=== PATIENT | female | born 1965 | race Hispanic/Latino ===

== ENCOUNTER 2017-09-14 19:30 | Inpatient (IN) | payer SELFPAY ==
[2017-09-14 21:21] LABS: #Eosinphils 0.1 thou/uL (0.0-0.7); #Lymphocytes 1.1 thou/uL (1.20-3.40); #Neutrophils 7.3 thou/uL (1.40-6.50); %Basophils 0.5 % (0.0-1.0); %Eosinophils 0.9 % (0.0-10.0); %Lymphocytes 11.9 % (21.0-51.0); %Monocytes 10.3 % (0.0-10.0); Hematocrit 27.7 % (36.0-47.0); Mean Platelet Volume 9.9 fL (7.4-10.4); Red Blood Cell (RBC) Count 3.15 mill/uL (4.20-5.40); White Blood Cell (WBC) Count 9.6 thou/uL (4.8-10.8)
[2017-09-14 21:38] LABS: ALT (SGPT) 21 U/L (8-55); AST (SGOT) 64 U/L (5-34); Alkaline Phosphatase 131 U/L (40-150); Anion Gap 12 mmol/L (10-20); BUN (Urea Nitrogen) 19 mg/dL (9.8-20.1); Bilirubin, Total 1.2 mg/dL (0.2-1.2); Calc. Creatinine Clearance 0 mL/min (70-130); Calcium 7.9 mg/dL (7.8-10.44); Carbon Dioxide 20 mmol/L (22-29); Chloride 104 mmol/L (98-107); Estimated GFR-MDRD 42; Protein, Total 7.2 g/dL (6.0-8.3)
[2017-09-14] MEDS ORDERED: Morphine 4 MG/ML Carpuject ONE (21:47)
[2017-09-14] MEDS ORDERED: MEROPENEM 1 GM/50 ML 1 GM in Premix Bag 1 BAG IVPB SCH (22:15)
--- NOTE | 2017-09-14 22:31 | CT ---
CT LEFT HEMIPELVIS/THIGH NONCONTRAST CT LEFT LEG NONCONTRAST CT LEFT FOOT NONCONTRAST: Clinical history: Diffuse pain. FINDINGS: There is edema throughout the left lower extremity and within the left hemipelvis. Edema is located within the subcutaneous tissues as well as along the superficial aspect of the fascia. There is an i nflamed lymph node of the anterior proximal left thigh which maintains a fatty hilum. Limited evalua tion by noncontrast technique for potential focal fluid collection. No obvious acute osseous destruc tive process. No soft tissue gas is present. IMPRESSION: 1. There is diffuse soft tissue edema including mild fascial edema. Limited evaluation for detection of drainable fluid collection by noncontrast technique. 2. Associated adenopathy. POS: DANAE
[2017-09-14 23:59] LABS: Bilirubin Negative (Negative); Blood, Urine Large (Negative); Glucose, Urine (Dipstick) Negative (Negative); Ketone, Urine Negative (Negative); Nitrite Negative (Negative); Protein, Urine (Dipstick) Trace mg/dL (Neg-Trace)
[2017-09-15 00:02] LABS: Bacteria/HPF None Seen HPF (None Seen); Hyaline Casts/LPF 0-3 HYALINE CAST LPF (0-3 Hyaline); RBC/HPF GREATER THAN 50-TNTC HPF (0-3)
[2017-09-15] MEDS ORDERED: Ondansetron HCl/PF 4 MG/2 ML Vial IVP PRN ×2 (01:47→11:21)
[2017-09-15] MEDS ORDERED: Ondansetron ODT 4 MG TAB SL PRN (01:47)
[2017-09-15] MEDS ORDERED: Sodium Chloride 0.9% 1,000 ML IV SCH ×2 (01:47→11:30)
[2017-09-15] MEDS ORDERED: MORPHINE 10 MG/ML SYRINGE IV PRN (01:49)
[2017-09-15 02:51] VITALS: BMI 38.0
[2017-09-15] MEDS ORDERED: MEROPENEM 1 GM/50 ML 1 GM in Premix Bag 1 BAG IVPB SCH (06:00)
[2017-09-15] MEDS: Potassium Chloride 20 MEQ TAB PO SCH ×2 (08:53→17:26)
[2017-09-15] MEDS ORDERED: Vancomycin HCl 1 GM in Premix Bag 1 BAG IVPB SCH ×2 (09:00→11:30)
[2017-09-15] MEDS ORDERED: Magnesium Sulfate 2 GM in Sodium Chloride 0.9% 100 ML IVPB SCH (10:00)
[2017-09-15] MEDS ORDERED: cefTRIAXone\\ROCEPHIN 1 GM in Sodium Chloride 0.9% 100 ML IVPB SCH (10:30)
[2017-09-15] MEDS ORDERED: Mag-Al 1200 mg/1200 mg/30 ML UDCUP PO PRN (11:21)
[2017-09-15] MEDS ORDERED: Calcium Carbonate 500 MG ChewTAB PO PRN (11:21)
[2017-09-15] MEDS ORDERED: Ondansetron ODT 4 MG TAB PO PRN (11:21)
[2017-09-15] MEDS ORDERED: hydrALAZINE 20 MG/ML VIAL SLOW IVP PRN (11:21)
[2017-09-15] MEDS ORDERED: Acetaminophen 325 MG TAB PO PRN (11:21)
[2017-09-15] MEDS ORDERED: Insulin Regular 300 UNITS/3 ML VIAL SC PRN ×2 (11:21)
[2017-09-15] MEDS ORDERED: Bisacodyl 10 MG SUPP PR PRN (11:21)
[2017-09-15] MEDS ORDERED: Dextrose 5% in Water 1,000 ML IV PRN (11:21)
[2017-09-15] MEDS ORDERED: Senokot 8.6 MG TAB PO PRN (11:21)
[2017-09-15] MEDS ORDERED: Dextrose 50% Abboject 50 ML SYRINGE SLOW IVP PRN (11:21)
[2017-09-15] MEDS: cefTRIAXone\\ROCEPHIN 1 GM, Syringe 0.4 ML in Sterile Water 9.6 ML SLOW IVP SCH (12:01)
--- NOTE | 2017-09-15 13:05 | ULT ---
ULTRASOUND WITH DOPPLER DUPLEX VENOUS LOWER EXTREMITY LEFT: HISTORY: 52-year-old female with left lower extremity pain and swelling. TECHNIQUE: Color flow Doppler, spectral waveform analysis of pulsed Doppler, and jones-scale imaging with compre ssion and augmentation, were used to evaluate the left common femoral, femoral, popliteal, posterior tibial, and superficial femoral, veins; and the proximal portions of the profunda femoral and great er saphenous, veins. FINDINGS: There is normal compressibility, demonstration of blood flow by color Doppler and pulsed Doppler, an d response to augmentation, in all interrogated veins. IMPRESSION: Negative. No deep vein thrombosis in the left lower extremity. angel POS: DANAE
--- NOTE | 2017-09-15 18:39 | HP ---
DATE OF ADMISSION: 09/15/2017 PRIMARY CARE PHYSICIAN: The patient follows Dr. Muhammad. Last seen in March of this year. CHIEF COMPLAINT: Left leg swelling with pain. HISTORY OF PRESENT ILLNESS: The patient is a 52-year-old female who was discharged from this [place] [facility] on 07/15/2017 (two months ago) with severe left lower extremity cellulitis. She was discharged h ome on Keflex 500 mg 4 times daily for 10 days followed by pen VK 250 mg twice a day for one year. She ran out of the prescription after a month. She did not follow up with the primary care for refi lls. Her leg swelling has significantly improved. Over the last 3-4 days, the patient developed gradual worsening swelling of left lower extremity. S he also had warmth, tenderness along with redness. She felt feverish; however, did not record her t emperature. The pain was 10/10, worse on movement. She denies recent immobilization, travel or tra yamile. For this reason, she presented to the emergency room. In the emergency room, initial vital signs showed temperature 98.8, respirations 19, pulse of 79, bl ood pressure of 127/69 with O2 saturation 98% on room air. White blood cell count was 9.6 with 76.4 % neutrophils. CRP was 10.9. Blood cultures were drawn. She was started on vancomycin and meropen em. PAST MEDICAL HISTORY: 1. Diabetes mellitus type 2. 2. Obesity with a BMI at 38. 3. Left lower extremity cellulitis 2 months ago. 4. Hypertension. PAST SURGICAL HISTORY: x3. ALLERGIES: The patient is allergic to ASPIRIN. CURRENT HOME MEDICATIONS: The patient currently takes no prescription medications. SOCIAL HISTORY: The patient is and lives at home with her family. No smoking, alcohol or d rug use. The patient currently works at [employer]. FAMILY HISTORY: Positive for diabetes in her parents. Mother with cervical and liver cancer. [facility] er with lung cancer. REVIEW OF SYSTEMS: The following complete review of systems was negative, unless otherwise mentione d in the HPI or below: Constitutional: Weight loss or gain, ability to conduct usual activities. Skin: Rash, itching. Eyes: Double vision, pain. ENT/Mouth: Nose bleeding, neck stiffness, pain, tenderness. Cardiovascular: Palpitations, dyspnea on exertion, orthopnea. Respiratory: Shortness of breath, wheezing, cough, hemoptysis, fever or night sweats. Gastrointestinal: Poor appetite, abdominal pain, heartburn, nausea, vomiting, constipation, or diar wagner. Genitourinary: Urgency, frequency, dysuria, nocturia. Musculoskeletal: Pain, swelling. Neurologic/Psychiatric: Anxiety, depression. Allergy/Immunologic: Skin rash, bleeding tendency. PHYSICAL EXAMINATION: VITAL SIGNS: As discussed above. GENERAL: A 52-year-old male in mild distress due to left leg pain and swelling. HEENT: Atraumatic and normocephalic, sclerae are anicteric. Moist mucous membrane, no oral lesion. NECK: Supple, no JVD appreciated. No carotid bruit. LUNGS: Clear to auscultation bilaterally. No wheezing or rales. HEART: S1, S2 present. Regular rate and rhythm. No rubs, gallops or murmur appreciated. ABDOMEN: Soft and nontender, bowel sounds present. EXTREMITIES: There is significant warmth, swelling and tenderness of the left lower extremity. The left lower extremity was also swollen with some tenderness on palpation. SKIN: As discussed above. LYMPH NODES: No palpable lymph nodes in the neck. PERIPHERAL VASCULAR: Radial pulses palpable bilaterally. MUSCULOSKELETAL: No joint swelling or tenderness. NEUROLOGIC: Grossly nonfocal, moves all four extremities. PSYCHIATRY: Alert, awake, and oriented x3. LABORATORY FINDINGS: As discussed above. Magnesium was 1.3, potassium 3.1 with sodium 133, creatin ine was 1.33. Her creatinine normally runs in that range. CRP was 10.95, albumin 2.2. CBC showed WBC 9.6 with hemoglobin 9.0. Blood cultures were sent and negative. Left lower extremity ultrasoun d was negative for DVT. Lower extremity CT noncontrast done in the emergency room by my review show ed diffuse soft tissue edema without any drainable fluid collection. IMPRESSION: 1. Extensive left lower extremity cellulitis. 2. Diabetes mellitus type 2, diet controlled. Hemoglobin A1c earlier this year was 5.8 at [facility]. 3. Hypertension. 4. Obesity with a body mass index 38. 5. Electrolyte imbalances including hypokalemia, hypomagnesemia and hyponatremia. 6. Chronic kidney disease stage 3. 7. Elevated inflammatory markers. 8. Hypoalbuminemia of unclear etiology, questionable mild protein-calorie malnutrition. 9. Abnormal liver function tests, probably secondary to passive hepatic congestion. 10. Metabolic acidosis, probably secondary to renal failure. Lactic acid was normal. 11. Chronic anemia. Plan of care was discussed with the patient and she stated understanding. PLAN: The patient will be monitored on the medical floor. We will continue vancomycin. We will ad d ceftriaxone. Repeat labs in a.m. Gentle intravenous hydration. Replace magnesium and potassium. Consult walking program. P.r.n. medications. Plan of care was discussed with the patient and she stated understanding.
[2017-09-15] MEDS: Docusate 100 MG CAP PO SCH (20:12)
[2017-09-15] MEDS: Vancomycin HCl 1.5 GM in Sodium Chloride 0.9% 250 ML 300 ML IVPB SCH (22:18)
[2017-09-16] MEDS: HYDROcodone/Acetaminophen 5/325 mg Tablet PO PRN ×3 (01:54→19:44)
[2017-09-16 05:41] LABS: ALT (SGPT) 18 U/L (8-55); AST (SGOT) 55 U/L (5-34); Alkaline Phosphatase 71 U/L (40-150); Anion Gap 9 mmol/L (10-20); BUN (Urea Nitrogen) 10 mg/dL (9.8-20.1); Bilirubin, Total 1.2 mg/dL (0.2-1.2); Calc. Creatinine Clearance 123 mL/min (70-130); Calcium 7.7 mg/dL (7.8-10.44); Carbon Dioxide 23 mmol/L (22-29); Chloride 107 mmol/L (98-107); Estimated GFR-MDRD 70; Globulin 4.9 g/dL (2.4-3.5); Magnesium 1.5 mg/dL (1.6-2.6); Phosphorus 2.9 mg/dL (2.3-4.7); Protein, Total 6.9 g/dL (6.0-8.3)
[2017-09-16 06:49] LABS: Band 7 % (5-11); Hematocrit 27.3 % (36.0-47.0); Mean Platelet Volume 9.3 fL (7.4-10.4); Metamyelocyte 1 % (0-0); Myelocyte 2 % (0-0); Neutrophil 56 % (42-75); Reactive Lymphocytes 1 % (0-10); Red Blood Cell (RBC) Count 3.06 mill/uL (4.20-5.40); White Blood Cell (WBC) Count 6.9 thou/uL (4.8-10.8)
[2017-09-16] MEDS ORDERED: Magnesium 2 GM/NS 0.9% 100 ML 2 GM in Premix Bag 1 BAG IVPB SCH (07:30)
[2017-09-16] MEDS ORDERED: Magnesium Sulfate 2 GM in Sodium Chloride 0.9% 100 ML IVPB SCH (07:30)
[2017-09-16] MEDS: Potassium Chloride 20 MEQ TAB PO SCH (08:48)
[2017-09-16] MEDS: Docusate 100 MG CAP PO SCH ×2 (08:48→19:44)
[2017-09-16] MEDS: cefTRIAXone\\ROCEPHIN 1 GM, Syringe 0.4 ML in Sterile Water 9.6 ML SLOW IVP SCH (10:54)
--- NOTE | 2017-09-16 17:10 | PDOC.PN ---
- Subjective Encounter Start Date: 09/16/17 Encounter Start Time: 11:00 Patient seen and examined. No new complaints. No overnight events. LLE pain and swelling improving. - Objective Resuscitation Status: Resuscitation Status FULL:Full Resuscitation MAR Reviewed: Yes Vital Signs & Weight: Vital Signs (12 hours) Temp Pulse Resp BP Pulse Ox 09/16/17 16:00 98.7 F 82 18 123/71 98 09/16/17 08:00 98.1 F 76 18 115/71 96 Weight Weight 221 lb 9.6 oz I&O: 09/15/17 09/16/17 09/17/17 06:59 06:59 06:59 Intake Total 2400 Balance 2400 Result Diagrams: 09/16/17 05:10 09/16/17 05:10 Additional Labs: Accuchecks 09/16/17 09/16/17 09/16/17 16:11 11:42 04:53 POC Glucose 138 H 119 H 108 09/15/17 09/15/17 20:12 17:03 POC Glucose 128 H 103 Radiology Reviewed by me: No (Doppler - No DVT) Phys Exam - Physical Examination Constitutional: NAD HEENT: moist MMs, sclera anicteric, oral pharynx no lesions, 2+ tonsils Respiratory: no wheezing, no rales, no rhonchi, clear to auscultation bilateral Cardiovascular: RRR, no significant murmur, no rub No heaves/pulsations Gastrointestinal: soft, non-tender, no distention, positive bowel sounds Musculoskeletal: pulses present, edema present (LLE with improving erythema. Still warm) Neurological: non-focal, normal sensation, moves all 4 limbs Psychiatric: normal affect, A&O x 3 Dx/Plan - Plan IMPRESSION: 1. Extensive left lower extremity cellulitis. slowly improving on Atbx 2. Diabetes mellitus type 2. 3. Hypertension. 4. Obesity with a body mass index 38. 5. Electrolyte imbalances including hypokalemia, hypomagnesemia and hyponatremia. 6. Chronic kidney disease stage 3. 7. Elevated inflammatory markers. 8. Hypoalbuminemia of unclear etiology, questionable mild protein-calorie malnutrition. 9. Abnormal liver function tests. 10. Metabolic acidosis, probably secondary to renal failure. Lactic acid was normal. 11. Chronic anemia. PLAN: * Replace Magnessium - 1.5 today * Cont Vancomycin/Ceftriaxone * Cont other meds as below Review of Systems - Review of Systems Respiratory: negative: Cough, Dry, Shortness of Breath, Hemoptysis, SOB with Excertion, Pleuritic Pain, Sputum, Wheezing Cardiovascular: negative: Chest Pain, Palpitations, Orthopnea, Paroxysmal Noc. Dyspnea, Edema, Light Headedness, Other Gastrointestinal: negative: Nausea, Vomiting, Abdominal Pain, Diarrhea, Constipation, Melena, Hematochezia, Other - Medications/Allergies Allergies/Adverse Reactions: Allergies Allergy/AdvReac Type Severity Reaction Status Date / Time aspirin Allergy Unknown Nausea Verified 09/15/17 02:34 Medications: Current Medications Acetaminophen (Tylenol) 650 mg PO Q4H PRN PRN Reason: Headache/Fever or Pain Hydrocodone Bitart/Acetaminophen ([place] 5/325) 1 tab PO Q6H PRN PRN Reason: Moderate Pain (4-6) Last Admin: 09/16/17 13:18 Dose: 1 tab Al Hydroxide/Mg Hydroxide (Maalox) 30 ml PO Q6H PRN PRN Reason: Heartburn or Indigestion Bisacodyl (Dulcolax) 10 mg [place] Q24H PRN PRN Reason: Constipation Calcium Carbonate (Tums) 1,000 mg PO Q4H PRN PRN Reason: Heartburn or Indigestion Dextrose/Water (Dextrose 50%) 25 gm SLOW IVP PRN PRN PRN Reason: Hypoglycemia Docusate Sodium (Colace) 100 mg PO BID [facility] Last Admin: 09/16/17 08:48 Dose: 100 mg Glucagon (Glucagon) 1 mg IM PRN PRN PRN Reason: Hypoglycemia Hydralazine HCl (Apresoline) 10 mg SLOW IVP Q4H PRN PRN Reason: SBP Greater Than 180 Ceftriaxone Sodium 1 gm/ (Syringe 0.4 ml/ Sterile Water) 10 mls @ 120 mls/hr SLOW IVP 1100 [facility] Last Admin: 09/16/17 10:54 Dose: 10 mls Dextrose/Water (D5w) 1,000 mls @ 0 mls/hr IV .Q0M PRN; As Directed PRN Reason: Hypoglycemia Vancomycin HCl 1.5 gm/ Sodium (Chloride) 300 mls @ 200 mls/hr IVPB 2200 [facility] Last Admin: 09/15/17 22:18 Dose: 300 mls Miscellaneous Medication (Pharmacy To Dose) 1 each IVPB PRN PRN PRN Reason: Pharmacy to dose Ondansetron HCl (Zofran Odt) 4 mg PO Q6H PRN PRN Reason: Nausea/Vomiting Ondansetron HCl (Zofran) 4 mg IVP Q6H PRN PRN Reason: Nausea/Vomiting Last Admin: 09/15/17 19:04 Dose: 4 mg Senna (Senokot) 2 tab PO HSPRN PRN PRN Reason: Constipation Sodium Chloride (Flush - Normal Saline) 10 ml IVF Q12HR [facility] Last Admin: 09/16/17 08:49 Dose: Not Given Sodium Chloride (Flush - Normal Saline) 10 ml IVF PRN PRN PRN Reason: Saline Flush
[2017-09-16 21:39] LABS: Vancomycin, Trough 7.5 ug/mL
[2017-09-16] MEDS: Vancomycin HCl 1.5 GM in Sodium Chloride 0.9% 250 ML 300 ML IVPB SCH (22:43)
[2017-09-17] MEDS: Vancomycin HCl 1.5 GM in Sodium Chloride 0.9% 250 ML 300 ML IVPB SCH ×2 (09:12→21:19)
[2017-09-17] MEDS: Docusate 100 MG CAP PO SCH ×2 (09:12→21:18)
--- NOTE | 2017-09-17 09:17 | PDOC.PN ---
- Subjective Encounter Start Date: 09/17/17 Encounter Start Time: 09:14 Patient seen and examined. No new complaints. No overnight events. LLE pain claudio at night. Ambulating in hallway. - Objective Resuscitation Status: Resuscitation Status FULL:Full Resuscitation Vital Signs & Weight: Vital Signs (12 hours) Temp Pulse Resp BP Pulse Ox 09/17/17 08:09 98.5 F 78 16 126/76 96 Weight Weight 221 lb 9.6 oz I&O: 09/16/17 09/17/17 09/18/17 06:59 06:59 06:59 Intake Total 2400 3236 Balance 2400 3236 Result Diagrams: 09/16/17 05:10 09/16/17 05:10 Additional Labs: Accuchecks 09/17/17 09/16/17 09/16/17 05:51 20:06 16:11 POC Glucose 130 H 184 H 138 H 09/16/17 11:42 POC Glucose 119 H Phys Exam - Physical Examination Constitutional: NAD Respiratory: no wheezing, no rhonchi Cardiovascular: RRR, no rub Gastrointestinal: soft, non-tender, positive bowel sounds Musculoskeletal: edema present (LLE still warm/swollen. Erythema improving.) Dx/Plan - Plan DVT proph w/SCDs IMPRESSION: 1. Extensive left lower extremity cellulitis - improving on Atbx 2. Diabetes mellitus type 2. diet controlled. No sliding scale needed. 3. Hypertension. stable 4. Obesity with a body mass index 38. 5. Electrolyte imbalances including hypokalemia, hypomagnesemia and hyponatremia. 6. Chronic kidney disease stage 3. 7. Elevated inflammatory markers - prob due to # 1 8. Hypoalbuminemia of unclear etiology, ?mild protein-calorie malnutrition. 9. Metabolic acidosis, probably secondary to renal failure. Lactic acid was normal. 10. Chronic anemia. PLAN: * Recheck labs in AM * Continue Vancomycin/Ceftriaxone * Cont other meds as below * DC planning in 24-48 hr if stable Review of Systems - Review of Systems Respiratory: negative: Cough, Dry, Shortness of Breath, Hemoptysis, SOB with Excertion, Pleuritic Pain, Sputum, Wheezing Cardiovascular: negative: Chest Pain, Palpitations, Orthopnea, Paroxysmal Noc. Dyspnea, Edema, Light Headedness, Other Gastrointestinal: negative: Nausea, Vomiting, Abdominal Pain, Diarrhea, Constipation, Melena, Hematochezia, Other - Medications/Allergies Allergies/Adverse Reactions: Allergies Allergy/AdvReac Type Severity Reaction Status Date / Time aspirin Allergy Unknown Nausea Verified 09/15/17 02:34 Medications: Current Medications Acetaminophen (Tylenol) 650 mg PO Q4H PRN PRN Reason: Headache/Fever or Pain Hydrocodone Bitart/Acetaminophen ([place] 5/325) 1 tab PO Q6H PRN PRN Reason: Moderate Pain (4-6) Last Admin: 09/16/17 19:44 Dose: 1 tab Al Hydroxide/Mg Hydroxide (Maalox) 30 ml PO Q6H PRN PRN Reason: Heartburn or Indigestion Bisacodyl (Dulcolax) 10 mg [place] Q24H PRN PRN Reason: Constipation Calcium Carbonate (Tums) 1,000 mg PO Q4H PRN PRN Reason: Heartburn or Indigestion Dextrose/Water (Dextrose 50%) 25 gm SLOW IVP PRN PRN PRN Reason: Hypoglycemia Docusate Sodium (Colace) 100 mg PO BID [facility] Last Admin: 09/16/17 19:44 Dose: 100 mg Glucagon (Glucagon) 1 mg IM PRN PRN PRN Reason: Hypoglycemia Hydralazine HCl (Apresoline) 10 mg SLOW IVP Q4H PRN PRN Reason: SBP Greater Than 180 Ceftriaxone Sodium 1 gm/ (Syringe 0.4 ml/ Sterile Water) 10 mls @ 120 mls/hr SLOW IVP 1100 [facility] Last Admin: 09/16/17 10:54 Dose: 10 mls Dextrose/Water (D5w) 1,000 mls @ 0 mls/hr IV .Q0M PRN; As Directed PRN Reason: Hypoglycemia Vancomycin HCl 1.5 gm/ Sodium (Chloride) 300 mls @ 200 mls/hr IVPB 1000,2200 [facility] Miscellaneous Medication (Pharmacy To Dose) 1 each IVPB PRN PRN PRN Reason: Pharmacy to dose Ondansetron HCl (Zofran Odt) 4 mg PO Q6H PRN PRN Reason: Nausea/Vomiting Ondansetron HCl (Zofran) 4 mg IVP Q6H PRN PRN Reason: Nausea/Vomiting Last Admin: 09/15/17 19:04 Dose: 4 mg Senna (Senokot) 2 tab PO HSPRN PRN PRN Reason: Constipation Sodium Chloride (Flush - Normal Saline) 10 ml IVF Q12HR [facility] Last Admin: 09/16/17 19:47 Dose: 10 ml Sodium Chloride (Flush - Normal Saline) 10 ml IVF PRN PRN PRN Reason: Saline Flush
[2017-09-17] MEDS: cefTRIAXone\\ROCEPHIN 1 GM, Syringe 0.4 ML in Sterile Water 9.6 ML SLOW IVP SCH (11:19)
[2017-09-17] MEDS: HYDROcodone/Acetaminophen 5/325 mg Tablet PO PRN (21:29)
[2017-09-18 05:44] LABS: Hematocrit 26.9 % (36.0-47.0); Mean Platelet Volume 8.9 fL (7.4-10.4); Red Blood Cell (RBC) Count 3.07 mill/uL (4.20-5.40); White Blood Cell (WBC) Count 5.1 thou/uL (4.8-10.8)
[2017-09-18 05:53] LABS: Anion Gap 11 mmol/L (10-20); BUN (Urea Nitrogen) 6 mg/dL (9.8-20.1); Calc. Creatinine Clearance 139 mL/min (70-130); Calcium 7.5 mg/dL (7.8-10.44); Carbon Dioxide 21 mmol/L (22-29); Chloride 105 mmol/L (98-107); Estimated GFR-MDRD 81; Magnesium 1.3 mg/dL (1.6-2.6)
[2017-09-18 06:08] LABS: Band 9 % (5-11); Neutrophil 50 % (42-75)
[2017-09-18] MEDS ORDERED: Magnesium Sulfate 4 GM, Admixture Fee 1 EACH in Sodium Chloride 0.9% 250 ML 250 ML IVPB SCH (07:15)
[2017-09-18] MEDS: Docusate 100 MG CAP PO SCH ×2 (08:47→22:19)
[2017-09-18] MEDS: Potassium Chloride 20 MEQ TAB PO SCH ×2 (08:47→17:27)
[2017-09-18] MEDS: cefTRIAXone\\ROCEPHIN 1 GM, Syringe 0.4 ML in Sterile Water 9.6 ML SLOW IVP SCH (11:09)
[2017-09-18] MEDS: Vancomycin HCl 1.5 GM in Sodium Chloride 0.9% 250 ML 300 ML IVPB SCH ×2 (11:09→22:18)
--- NOTE | 2017-09-18 11:57 | PDOC.PN ---
- Subjective Encounter Start Date: 09/18/17 Encounter Start Time: 10:00 Patient seen and examined. No new complaints. No overnight events - Objective Resuscitation Status: Resuscitation Status FULL:Full Resuscitation MAR Reviewed: Yes Vital Signs & Weight: Vital Signs (12 hours) Temp Pulse Resp BP Pulse Ox 09/18/17 08:16 98.4 F 75 16 134/77 97 09/18/17 08:00 98.4 F 75 16 97 09/18/17 05:09 97 09/18/17 04:00 98.2 F 75 18 120/74 96 09/18/17 00:00 98.2 F 83 18 127/75 97 Weight Weight 221 lb 9.6 oz I&O: 09/17/17 09/18/17 09/19/17 06:59 06:59 06:59 Intake Total 3236 300 Balance 3236 300 Result Diagrams: 09/18/17 05:04 09/18/17 05:04 Additional Labs: Accuchecks 09/18/17 09/17/17 09/17/17 05:44 21:01 18:01 POC Glucose 93 105 101 09/17/17 11:55 POC Glucose 121 H Phys Exam - Physical Examination Constitutional: NAD HEENT: PERRLA, moist MMs, sclera anicteric Neck: no JVD, supple Respiratory: no wheezing, no rales, no rhonchi Cardiovascular: RRR, no significant murmur, no rub Gastrointestinal: soft, non-tender, no distention, positive bowel sounds Musculoskeletal: no edema, pulses present cellulitis improving Neurological: non-focal, normal sensation, moves all 4 limbs Psychiatric: normal affect, A&O x 3 Skin: no rash, normal turgor Dx/Plan (1) Acute kidney failure Status: Acute (2) Cellulitis of left leg Code(s): L03.116 - CELLULITIS OF LEFT LOWER LIMB Status: Acute Comment: (3) Hypokalemia Code(s): E87.6 - HYPOKALEMIA Status: Acute (4) Hypomagnesemia Code(s): E83.42 - HYPOMAGNESEMIA Status: Acute (5) Sepsis with acute organ dysfunction Code(s): A41.9 - SEPSIS, UNSPECIFIED ORGANISM; R65.20 - SEVERE SEPSIS WITHOUT SEPTIC SHOCK Status: Acute (6) Thrombocytopenia Code(s): D69.6 - THROMBOCYTOPENIA, UNSPECIFIED Status: Acute (7) Anemia, normocytic normochromic Code(s): D64.9 - ANEMIA, UNSPECIFIED Status: Chronic (8) DM II (diabetes mellitus, type II), controlled Code(s): E11.9 - TYPE 2 DIABETES MELLITUS WITHOUT COMPLICATIONS Status: Chronic Comment: (9) HTN (hypertension) Code(s): I10 - ESSENTIAL (PRIMARY) HYPERTENSION Status: Chronic Qualifiers: Hypertension type: essential hypertension Qualified Code(s): I10 - Essential (primary) hypertension Comment: (10) Obesity (BMI 30-39.9) Code(s): E66.9 - OBESITY, UNSPECIFIED Status: Chronic - Plan cont current plan of care, continue antibiotics * continue IV antibiotics as ordered * medication reviewed as below * symptomatic treatment * pain controlled * pt is improving but not ready for discharge * will repeat labs tomorrow. Review of Systems - Review of Systems ENT: negative: Ear Pain, Ear Discharge, Nose Pain, Nose Discharge, Nose Congestion, Mouth Pain, Mouth Swelling, Throat Pain, Throat Swelling, Other Respiratory: negative: Cough, Dry, Shortness of Breath, Hemoptysis, SOB with Excertion, Pleuritic Pain, Sputum, Wheezing Cardiovascular: negative: Chest Pain, Palpitations, Orthopnea, Paroxysmal Noc. Dyspnea, Edema, Light Headedness, Other Gastrointestinal: negative: Nausea, Vomiting, Abdominal Pain, Diarrhea, Constipation, Melena, Hematochezia, Other Genitourinary: negative: Dysuria, Frequency, Incontinence, Hematuria, Retention , Other Musculoskeletal: Leg Pain. negative: Neck Pain, Shoulder Pain, Arm Pain, Back Pain, Hand Pain, Foot Pain, Other - Medications/Allergies Allergies/Adverse Reactions: Allergies Allergy/AdvReac Type Severity Reaction Status Date / Time aspirin Allergy Unknown Nausea Verified 09/15/17 02:34 Medications: Current Medications Acetaminophen (Tylenol) 650 mg PO Q4H PRN PRN Reason: Headache/Fever or Pain Hydrocodone Bitart/Acetaminophen ([place] 5/325) 1 tab PO Q6H PRN PRN Reason: Moderate Pain (4-6) Last Admin: 09/17/17 21:29 Dose: 1 tab Al Hydroxide/Mg Hydroxide (Maalox) 30 ml PO Q6H PRN PRN Reason: Heartburn or Indigestion Bisacodyl (Dulcolax) 10 mg [place] Q24H PRN PRN Reason: Constipation Calcium Carbonate (Tums) 1,000 mg PO Q4H PRN PRN Reason: Heartburn or Indigestion Dextrose/Water (Dextrose 50%) 25 gm SLOW IVP PRN PRN PRN Reason: Hypoglycemia Docusate Sodium (Colace) 100 mg PO BID [facility] Last Admin: 09/18/17 08:47 Dose: 100 mg Glucagon (Glucagon) 1 mg IM PRN PRN PRN Reason: Hypoglycemia Hydralazine HCl (Apresoline) 10 mg SLOW IVP Q4H PRN PRN Reason: SBP Greater Than 180 Ceftriaxone Sodium 1 gm/ (Syringe 0.4 ml/ Sterile Water) 10 mls @ 120 mls/hr SLOW IVP 1100 [facility] Last Admin: 09/18/17 11:09 Dose: 10 mls Dextrose/Water (D5w) 1,000 mls @ 0 mls/hr IV .Q0M PRN; As Directed PRN Reason: Hypoglycemia Vancomycin HCl 1.5 gm/ Sodium (Chloride) 300 mls @ 200 mls/hr IVPB 1000,2200 [facility] Last Admin: 09/18/17 11:09 Dose: 300 mls Magnesium Sulfate 4 gm/Miscellaneous Medication 1 each/ Sodium Chloride 258 mls @ 86 mls/hr IVPB ONE [facility] Stop: 09/18/17 12:00 Miscellaneous Medication (Pharmacy To Dose) 1 each IVPB PRN PRN PRN Reason: Pharmacy to dose Ondansetron HCl (Zofran Odt) 4 mg PO Q6H PRN PRN Reason: Nausea/Vomiting Ondansetron HCl (Zofran) 4 mg IVP Q6H PRN PRN Reason: Nausea/Vomiting Last Admin: 09/15/17 19:04 Dose: 4 mg Potassium Chloride (K-Dur) 40 meq PO BID[facility] Stop: 09/18/17 17:01 Last Admin: 09/18/17 08:47 Dose: 40 meq Senna (Senokot) 2 tab PO HSPRN PRN PRN Reason: Constipation Sodium Chloride (Flush - Normal Saline) 10 ml IVF Q12HR [facility] Last Admin: 09/18/17 08:49 Dose: 10 ml Sodium Chloride (Flush - Normal Saline) 10 ml IVF PRN PRN PRN Reason: Saline Flush
[2017-09-18] MEDS: Ketorolac Tromethamine 30 MG/ML VIAL IVP PRN (17:27)
[2017-09-19 05:28] LABS: #Eosinphils 0.3 thou/uL (0.0-0.7); #Lymphocytes 0.9 thou/uL (1.20-3.40); #Monocytes 0.6 thou/uL (0.11-0.59); #Neutrophils 2.7 thou/uL (1.40-6.50); %Basophils 0.1 % (0.0-1.0); %Eosinophils 7.7 % (0.0-10.0); %Lymphocytes 18.9 % (21.0-51.0); %Monocytes 13.1 % (0.0-10.0); Hematocrit 25.6 % (36.0-47.0); Mean Platelet Volume 8.6 fL (7.4-10.4); White Blood Cell (WBC) Count 4.5 thou/uL (4.8-10.8)
[2017-09-19 05:30] LABS: Anion Gap 11 mmol/L (10-20); BUN (Urea Nitrogen) 6 mg/dL (9.8-20.1); Calc. Creatinine Clearance 139 mL/min (70-130); Calcium 7.4 mg/dL (7.8-10.44); Carbon Dioxide 20 mmol/L (22-29); Chloride 107 mmol/L (98-107); Estimated GFR-MDRD 81
[2017-09-19] MEDS: Docusate 100 MG CAP PO SCH ×2 (09:22→20:26)
[2017-09-19] MEDS: Vancomycin HCl 1.5 GM in Sodium Chloride 0.9% 250 ML 300 ML IVPB SCH ×2 (09:22→22:17)
--- NOTE | 2017-09-19 11:42 | PDOC.PN ---
- Subjective Encounter Start Date: 09/19/17 Encounter Start Time: 10:40 Patient seen and examined. No new complaints. No overnight events - Objective Resuscitation Status: Resuscitation Status FULL:Full Resuscitation MAR Reviewed: Yes Vital Signs & Weight: Vital Signs (12 hours) Temp Pulse Resp BP Pulse Ox 09/19/17 08:00 98.7 F 77 18 97 09/19/17 07:49 98.7 F 77 18 123/73 97 Weight Weight 221 lb 9.6 oz I&O: 09/18/17 09/19/17 09/20/17 06:59 06:59 06:59 Intake Total 300 2059 Balance 300 2059 Result Diagrams: 09/19/17 04:42 09/19/17 04:42 Additional Labs: Accuchecks 09/19/17 09/18/17 09/18/17 05:40 19:46 15:58 POC Glucose 107 126 H 124 H 09/18/17 11:03 POC Glucose 165 H Phys Exam - Physical Examination Constitutional: NAD HEENT: PERRLA, moist MMs, sclera anicteric Neck: no JVD, supple Respiratory: no wheezing, no rales, no rhonchi Cardiovascular: RRR, no significant murmur, no rub Gastrointestinal: soft, non-tender, no distention, positive bowel sounds Musculoskeletal: pulses present left leg swelling improving Neurological: non-focal, normal sensation, moves all 4 limbs Psychiatric: normal affect, A&O x 3 Skin: no rash, normal turgor Dx/Plan (1) Acute kidney failure Status: Acute (2) Cellulitis of left leg Code(s): L03.116 - CELLULITIS OF LEFT LOWER LIMB Status: Acute Comment: (3) Hypokalemia Code(s): E87.6 - HYPOKALEMIA Status: Acute (4) Hypomagnesemia Code(s): E83.42 - HYPOMAGNESEMIA Status: Acute (5) Sepsis with acute organ dysfunction Code(s): A41.9 - SEPSIS, UNSPECIFIED ORGANISM; R65.20 - SEVERE SEPSIS WITHOUT SEPTIC SHOCK Status: Acute (6) Thrombocytopenia Code(s): D69.6 - THROMBOCYTOPENIA, UNSPECIFIED Status: Acute (7) Anemia, normocytic normochromic Code(s): D64.9 - ANEMIA, UNSPECIFIED Status: Chronic (8) DM II (diabetes mellitus, type II), controlled Code(s): E11.9 - TYPE 2 DIABETES MELLITUS WITHOUT COMPLICATIONS Status: Chronic Comment: (9) HTN (hypertension) Code(s): I10 - ESSENTIAL (PRIMARY) HYPERTENSION Status: Chronic Qualifiers: Hypertension type: essential hypertension Qualified Code(s): I10 - Essential (primary) hypertension Comment: (10) Obesity (BMI 30-39.9) Code(s): E66.9 - OBESITY, UNSPECIFIED Status: Chronic - Plan cont current plan of care, continue antibiotics * continue current antibiotics * pt is improving, pain is getting less * medication reviewed as below * symptomatic treatment * will discharge tomorrow. Review of Systems - Review of Systems ENT: negative: Ear Pain, Ear Discharge, Nose Pain, Nose Discharge, Nose Congestion, Mouth Pain, Mouth Swelling, Throat Pain, Throat Swelling, Other Respiratory: negative: Cough, Dry, Shortness of Breath, Hemoptysis, SOB with Excertion, Pleuritic Pain, Sputum, Wheezing Cardiovascular: negative: Chest Pain, Palpitations, Orthopnea, Paroxysmal Noc. Dyspnea, Edema, Light Headedness, Other Gastrointestinal: negative: Nausea, Vomiting, Abdominal Pain, Diarrhea, Constipation, Melena, Hematochezia, Other Genitourinary: negative: Dysuria, Frequency, Incontinence, Hematuria, Retention , Other Musculoskeletal: Leg Pain. negative: Neck Pain, Shoulder Pain, Arm Pain, Back Pain, Hand Pain, Foot Pain, Other Skin: negative: Rash, Lesions, Umair, Bruising, Other - Medications/Allergies Allergies/Adverse Reactions: Allergies Allergy/AdvReac Type Severity Reaction Status Date / Time aspirin Allergy Unknown Nausea Verified 09/15/17 02:34 acetaminophen [From [place]] Allergy Rash Verified 09/19/17 04:39 hydrocodone [From [place]] Allergy Rash Verified 09/19/17 04:39 Medications: Current Medications Acetaminophen (Tylenol) 650 mg PO Q4H PRN PRN Reason: Headache/Fever or Pain Al Hydroxide/Mg Hydroxide (Maalox) 30 ml PO Q6H PRN PRN Reason: Heartburn or Indigestion Bisacodyl (Dulcolax) 10 mg [place] Q24H PRN PRN Reason: Constipation Calcium Carbonate (Tums) 1,000 mg PO Q4H PRN PRN Reason: Heartburn or Indigestion Dextrose/Water (Dextrose 50%) 25 gm SLOW IVP PRN PRN PRN Reason: Hypoglycemia Docusate Sodium (Colace) 100 mg PO BID [facility] Last Admin: 09/19/17 09:22 Dose: 100 mg Glucagon (Glucagon) 1 mg IM PRN PRN PRN Reason: Hypoglycemia Hydralazine HCl (Apresoline) 10 mg SLOW IVP Q4H PRN PRN Reason: SBP Greater Than 180 Ceftriaxone Sodium 1 gm/ (Syringe 0.4 ml/ Sterile Water) 10 mls @ 120 mls/hr SLOW IVP 1100 [facility] Last Admin: 09/18/17 11:09 Dose: 10 mls Dextrose/Water (D5w) 1,000 mls @ 0 mls/hr IV .Q0M PRN; As Directed PRN Reason: Hypoglycemia Vancomycin HCl 1.5 gm/ Sodium (Chloride) 300 mls @ 200 mls/hr IVPB 1000,2200 [facility] Last Admin: 09/19/17 09:22 Dose: 300 mls Ketorolac Tromethamine (Toradol) 15 mg IVP Q6H PRN PRN Reason: Pain Stop: 09/23/17 16:45 Last Admin: 09/18/17 17:27 Dose: 15 mg Miscellaneous Medication (Pharmacy To Dose) 1 each IVPB PRN PRN PRN Reason: Pharmacy to dose Ondansetron HCl (Zofran Odt) 4 mg PO Q6H PRN PRN Reason: Nausea/Vomiting Ondansetron HCl (Zofran) 4 mg IVP Q6H PRN PRN Reason: Nausea/Vomiting Last Admin: 09/15/17 19:04 Dose: 4 mg Senna (Senokot) 2 tab PO HSPRN PRN PRN Reason: Constipation Sodium Chloride (Flush - Normal Saline) 10 ml IVF Q12HR [facility] Last Admin: 09/19/17 09:23 Dose: 10 ml Sodium Chloride (Flush - Normal Saline) 10 ml IVF PRN PRN PRN Reason: Saline Flush
[2017-09-19] MEDS: cefTRIAXone\\ROCEPHIN 1 GM, Syringe 0.4 ML in Sterile Water 9.6 ML SLOW IVP SCH (11:43)
[2017-09-19] MEDS: Ketorolac Tromethamine 30 MG/ML VIAL IVP PRN (17:01)
[2017-09-20] MEDS: Docusate 100 MG CAP PO SCH (08:04)
[2017-09-20 08:16] VITALS: BP 134/80; TEMP 97.9
[2017-09-20 09:32] LABS: Vancomycin, Trough 24.8 ug/mL
[2017-09-20] MEDS: Vancomycin HCl 1.5 GM in Sodium Chloride 0.9% 250 ML 300 ML IVPB SCH (10:34)
[2017-09-20] MEDS: cefTRIAXone\\ROCEPHIN 1 GM, Syringe 0.4 ML in Sterile Water 9.6 ML SLOW IVP SCH (11:13)
[2017-09-20] MEDS ORDERED: Vancomycin HCl 1.25 GM in Sodium Chloride 0.9% 250 ML 250 ML IVPB SCH (12:00)
--- NOTE | 2017-09-20 14:32 | DIS ---
PRIMARY CARE PHYSICIAN: Dr. Pawel Muhammad. DATE OF ADMISSION: 09/15/2017 DATE OF DISCHARGE: 09/20/2017 DISCHARGE DISPOSITION: Home. PRIMARY DISCHARGE DIAGNOSES: Sepsis with acute organ dysfunction, acute kidney failure, hypokalemia, hypomagnesemia, thrombocytopenia, left lower extremity cellulitis. SECONDARY DISCHARGE DIAGNOSES: Normocytic-normochromic anemia, diabetes type 2 , hypertension, obesity with BMI of 38. PRIMARY PROCEDURE/OPERATION: None. RADIOLOGICAL INVESTIGATION: Lower extremity CT scan negative for any bony involvement. Ultrasound was negative for any DVT. SIGNIFICANT LABORATORY DATA: WBC 4.5, hemoglobin 8.2, platelets 102. Sodium 134, creatinine 0.75, magnesium 2.0. CRP 5.51. Urinalysis suggestive of UTI. Urine culture negative. Blood culture negative. DISCHARGE MEDICATIONS: Keflex 500 mg p.o. t.i.d., doxycycline 100 mg twice daily, and Florastor 250 mg p.o. daily for 10 days. Patient discontinue all her previous medication. CONTRAINDICATIONS: None. CODE STATUS: FULL CODE. INPATIENT CONSULTANTS: None. ALLERGIES: ASPIRIN and NORCO. DISCHARGE PLAN: Post hospital, the patient will follow up with primary care physician. HOSPITAL COURSE: A 52-year-old female who was admitted by Dr. Dominic Bonds on . This patient presented with left lower extremity cellulitis. Initially ultrasound and CT scan was negative for any acute bony involvement and DVT. Clinically, patient was having left lower extremity cellulitis. She was admitted to medical floor. She was treated with broad-spectrum antibiotic therapy. We treated her while in hospital with vancomycin and Rocephin. On discharge, we changed to Keflex AND DOXY. Her cultures remained negative with IV antibiotic therapy while in hospital. The patient had significant improvement in her left lower extremity cellulitis. On admission, she was admitting sepsis with acute organ dysfunction criteria that was improved. Her abnormal electrolytes on admission was corrected while in hospital. PHYSICAL EXAMINATION: The patient is seen and examined at the bedside today. VITAL SIGNS: Currently temperature 97.9, pulse 73, respiratory rate 18, saturation 98%, blood pressure 134/80, weight 221 pounds. GENERAL: The patient is currently alert, awake, in no acute distress. HEAD: Normocephalic, atraumatic. LUNGS: Clear. CARDIAC: S1, S2 regular, without any murmurs. ABDOMEN: Soft and benign. EXTREMITIES: No edema. NEUROLOGIC: Nonfocal examination. Cellulitis significantly improved. The patient is given instructions to follow up with Dr. Mccray after 10 days of therapy for prophylactic therapy. All new medication prescriptions sent to her pharmacy. Total time spent on discharge day 31 minutes. LEDAD
== END 2017-09-20 13:22 | disposition home or self-care (01) | DRG 872 ==
LOC: ERS 19:30 → T4-B 09-15 01:32
PROVIDERS: ADMIT Internal Medicine; ATTEND Internal Medicine
DX: A41.9 Sepsis, unspecified organism (principal); E87.2 Acidosis; E11.22 Type 2 diabetes mellitus with diabetic chronic kidney disease; D69.6 Thrombocytopenia, unspecified; N17.9 Acute kidney failure, unspecified; N18.3 Chronic kidney disease, stage 3 (moderate); E87.1 Hypo-osmolality and hyponatremia; L03.116 Cellulitis of left lower limb; R65.20 Severe sepsis without septic shock; E66.9 Obesity, unspecified; Z68.38 Body mass index [BMI] 38.0-38.9, adult; Z88.6 Allergy status to analgesic agent; E87.6 Hypokalemia; E83.42 Hypomagnesemia; I12.9 Hypertensive chronic kidney disease with stage 1 through stage 4 chronic kidney disease, or unspecified chronic kidney disease; D64.9 Anemia, unspecified
CPT/HCPCS: 36415; 36416; 80048; 80053; 80202; 81003; 81015; 83605; 83735; 84100; 85025; 86140; 87040; 96365; 96367; 96375; A4216; J0696; J1885; J2270; J2405; J3370; J3475; J7050; Q0162

== ENCOUNTER 2018-09-17 07:28 | Day surgery (SDC) | payer OTHER, SELFPAY ==
[2018-09-17 08:13] LABS: INR-International Normal Ratio 1.4; Prothrombin Time 17.4 SEC (12.0-14.7)
[2018-09-17 08:21] LABS: #Eosinphils 0.1 thou/uL (0.0-0.7); #Lymphocytes 0.8 thou/uL (1.20-3.40); #Monocytes 0.4 thou/uL (0.11-0.59); #Neutrophils 2.2 thou/uL (1.40-6.50); %Basophils 0.7 % (0.0-1.0); %Eosinophils 2.2 % (0.0-10.0); %Lymphocytes 23.9 % (21.0-51.0); %Monocytes 10.9 % (0.0-10.0); %Neutrophils 62.3 % (42.0-75.0); Hemoglobin 9.5 g/dL (12.0-16.0); Mean Corpuscular HGB CONC 28.4 g/dL (32.0-36.0); Mean Corpuscular Hemoglobin 20.7 pg (27.0-31.0); Mean Platelet Volume 7.7 fL (7.4-10.4); Platelet Count 96 thou/uL (130-400); RBC Distribution Width 19.6 % (11.5-14.5); Red Blood Cell (RBC) Count 4.57 mill/uL (4.20-5.40); White Blood Cell (WBC) Count 3.5 thou/uL (4.8-10.8)
[2018-09-17] MEDS ORDERED: Sodium Bicarbonate 2.5 MEQ/5 ML VIAL ONE (08:53)
[2018-09-17] MEDS ORDERED: Lidocaine 1% PF 5 ML VIAL ONE (08:54)
[2018-09-17] MEDS ORDERED: Fentanyl 100 MCG/2 ML VIAL ONE (08:55)
[2018-09-17] MEDS ORDERED: Midazolam HCl 2 mg/2 ml Vial ONE (08:55)
[2018-09-17 10:03] VITALS: BMI 36.0
--- NOTE | 2018-09-17 13:07 | ULT ---
ULTRASOUND GUIDED HEPATIC BIOPSY: Date: 09/17/18 INDICATION: History of abdominal pain, cirrhosis, jaundice. PROCEDURE: Informed consent was obtained. The patient was escorted to the procedural suite and placed in the sup ine position. The patient's liver was imaged with ultrasound and a biopsy approach from a substernal position was performed. The patient's skin surface was prepped and draped in the standard sterile fas hion. Topical anesthesia with buffered 1% lidocaine was then performed. A small skin incision was mad e, through which an 18 gauge biopsy needle was advanced to the leading edge of the hepatic capsule. T wo subsequent core specimens were acquired via cord biopsy procedures of the left hepatic lobe. Imagi ng was stored for documentation, which reveals biopsy needle within the superficial aspect of the hep atic parenchyma. Postprocedural imaging revealed no evidence of complication. Conscious sedation was performed for approximately 45 minutes for the procedure. The radiology nurse monitored the patient's stable condition throughout the duration of the procedure, and thereafter in radiology holding prior to discharge in stable condition with a family member. IMPRESSION: Technically successful ultrasound guided hepatic biopsy. Pathology results are pending. POS: [facility]
== END 2018-09-17 11:00 | disposition home or self-care (01) ==
LOC: ULT 07:28
PROVIDERS: ATTEND Internal Medicine Gastroenterology
PROC: 0FB23ZX Excision of Left Lobe Liver, Percutaneous Approach, Diagnostic (ICD-10-PCS; principal; 2018-09-17)
DX: K73.8 Other chronic hepatitis, not elsewhere classified (principal); K74.60 Unspecified cirrhosis of liver; K75.81 Nonalcoholic steatohepatitis (NASH); Z88.8 Allergy status to other drugs, medicaments and biological substances
CPT/HCPCS: 36415; 47000; 76942; 85025; 85610; 85730; 88307; 88313; J2001; J2250; J3010

== ENCOUNTER 2018-10-17 14:12 | Emergency (ER) | payer SELFPAY ==
[2018-10-17 15:14] LABS: Hemoglobin 8.1 g/dL (12.0-16.0); Mean Corpuscular Hemoglobin 22.6 pg (27.0-31.0); Mean Corpuscular Volume 75.3 fL (78.0-98.0); Mean Platelet Volume 9.4 fL (7.4-10.4); Platelet Count 102 thou/uL (130-400); White Blood Cell (WBC) Count 4.4 thou/uL (4.8-10.8)
[2018-10-17 15:32] LABS: ALT (SGPT) 17 U/L (8-55); AST (SGOT) 50 U/L (5-34); Albumin 2.5 g/dL (3.5-5.0); Alkaline Phosphatase 77 U/L (40-150); Anion Gap 12 mmol/L (10-20); BUN (Urea Nitrogen) 22 mg/dL (9.8-20.1); Bilirubin, Total 3.9 mg/dL (0.2-1.2); Calc. Creatinine Clearance 0 mL/min (70-130); Calcium 8.4 mg/dL (7.8-10.44); Carbon Dioxide 17 mmol/L (22-29); Chloride 106 mmol/L (98-107); Estimated GFR-MDRD 27; Globulin 5.1 g/dL (2.4-3.5); Glucose 145 mg/dL (70-105); Protein, Total 7.6 g/dL (6.0-8.3); Sodium 131 mmol/L (136-145)
[2018-10-17 15:45] LABS: Anisocytosis SLIGHT = 6-15 cells (100X) (0-5/hpf); Band 1 % (5-11); Eosinophils 1 % (0-10); Hypochromia SLIGHT = 6-15 cells (100X) (0-5/hpf); Lymphocytes 2 % (21-51); Monocytes 5 % (0-10); Neutrophil 91 % (42-75); PLT Morphology Comment Appears Decreased
[2018-10-17 15:54] LABS: CKMB 5.8 ng/mL (0-6.6)
--- NOTE | 2018-10-17 15:56 | RAD ---
PORTABLE CHEST: 10/17/2018 PROVIDED CLINICAL HISTORY: Swelling. COMPARISON: 06/24/2018 FINDINGS: The cardiac silhouette remains enlarged. No focal consolidation, pleural fluid, or pneumothorax appa rent. IMPRESSION: Cardiomegaly without evidence for an acute cardiopulmonary process. POS: [facility]
[2018-10-17 16:07] LABS: MDiff Complete? YES
--- NOTE | 2018-10-17 17:14 | ULT ---
BILATERAL LOWER EXTREMITY VENOUS DOPPLER WITH SPECTRAL ANALYSIS AND COLORFLOW EVALUATION: 10/17/2018 HISTORY: Bilateral lower extremity edema and pain in legs. FINDINGS: Mas-scale, color-flow, Doppler evaluation, and spectral analysis of the bilateral lower extremity ve nous structures is performed with 2D imaging. The bilateral lower extremity common femoral, superfic ial femoral, popliteal, posterior tibial, most proximal greater saphenous, and profunda femoral veins are imaged. There is increased pulsatile flow within the bilateral lower extremity venous structures, diffusely. While this is overall nonspecific, this can be seen with cardiac conditions and elevated right atria l pressures. There is otherwise normal lumen compressibility, flow, and augmentation in the visualiz ed deep venous structures of the bilateral lower extremities. There is mild subcutaneous edema seen within the distal bilateral lower extremities. IMPRESSION: 1. Pulsatile flow in the bilateral lower extremity venous structures, which is nonspecific, but can be seen with cardiac conditions and elevated right atrial pressures. 2. No evidence of a deep venous thrombosis involving the visualized deep venous structures of the bi lateral lower extremities. POS: [facility]
[2018-10-17] MEDS ORDERED: Furosemide 20 MG/2 ML VIAL ONE (17:42)
== END 2018-10-17 18:12 | disposition home or self-care (01) ==
LOC: ERS 14:12
DX: R60.0 Localized edema (principal); E11.9 Type 2 diabetes mellitus without complications; I10 Essential (primary) hypertension; Z79.899 Other long term (current) drug therapy
CPT/HCPCS: 36415; 71045; 80053; 82553; 83605; 83880; 84484; 85025; 87040; 93005; 93970; 96374; J1940

== ENCOUNTER 2018-11-08 09:39 | Observation (INO) | payer OTHER, SELFPAY ==
[2018-11-08 11:00] LABS: ALT (SGPT) 22 U/L (8-55); AST (SGOT) 56 U/L (5-34); Albumin 2.4 g/dL (3.5-5.0); Alkaline Phosphatase 83 U/L (40-150); Anion Gap 12 mmol/L (10-20); BUN (Urea Nitrogen) 15 mg/dL (9.8-20.1); Bilirubin, Total 3.6 mg/dL (0.2-1.2); Calc. Creatinine Clearance 0 mL/min (70-130); Calcium 8.4 mg/dL (7.8-10.44); Carbon Dioxide 17 mmol/L (22-29); Chloride 107 mmol/L (98-107); Estimated GFR-MDRD 35; Globulin 5.2 g/dL (2.4-3.5); Glucose 150 mg/dL (70-105); Lipase 78 U/L (8-78); Potassium 3.8 mmol/L (3.5-5.1); Protein, Total 7.6 g/dL (6.0-8.3); Sodium 132 mmol/L (136-145)
[2018-11-08 11:21] LABS: #Eosinphils 0.1 thou/uL (0.0-0.7); #Lymphocytes 0.6 thou/uL (1.20-3.40); #Monocytes 0.5 thou/uL (0.11-0.59); #Neutrophils 2.9 thou/uL (1.40-6.50); %Basophils 0.8 % (0.0-1.0); %Eosinophils 2.9 % (0.0-10.0); %Lymphocytes 14.6 % (21.0-51.0); %Monocytes 12.7 % (0.0-10.0); %Neutrophils 68.9 % (42.0-75.0); Hemoglobin 8.2 g/dL (12.0-16.0); Hypochromia SLIGHT = 6-15 cells (100X) (0-5/hpf); MDiff Complete? YES; Mean Corpuscular HGB CONC 29.1 g/dL (32.0-36.0); Mean Corpuscular Hemoglobin 21.9 pg (27.0-31.0); Mean Corpuscular Volume 75.2 fL (78.0-98.0); Mean Platelet Volume 8.8 fL (7.4-10.4); Microcytosis SLIGHT = 6-15 cells (100X) (0-5/hpf); PLT Morphology Comment Appears Decreased; Platelet Count 89 thou/uL (130-400); Polychromasia SLIGHT = 2-3 cells (100X) (0-2/hpf); Red Blood Cell (RBC) Count 3.72 mill/uL (4.20-5.40); White Blood Cell (WBC) Count 4.2 thou/uL (4.8-10.8)
--- NOTE | 2018-11-08 11:41 | RAD ---
PORTABLE CHEST: DATE: 11/08/2018. PROVIDED CLINICAL HISTORY: Dyspnea. FINDINGS: Comparison 10/17/2018. The cardiac silhouette remains enlarged. No focal consolidation, pleural flui d, or pneumothorax apparent. IMPRESSION: Cardiomegaly without evidence for an acute cardiopulmonary process. POS: [facility]
[2018-11-08] MEDS ORDERED: Ondansetron PF 4 MG/2 ML Vial ONE ×2 (12:04→15:42)
[2018-11-08] MEDS ORDERED: Morphine 4 MG/ML VIAL ONE (12:04)
[2018-11-08 12:37] LABS: Bilirubin Small (Negative); Blood, Urine Large (Negative); Clarity CLEAR (Clear); Glucose, Urine (Dipstick) Negative (Negative); Leukocyte Trace (Negative); Nitrite Negative (Negative); Protein, Urine (Dipstick) 30 mg/dL (Neg-Trace); Specific Gravity, Urine 1.011 (1.002-1.036)
[2018-11-08 12:41] LABS: Bacteria/HPF None Seen HPF (None Seen); Hyaline Casts/LPF 0-3 HYALINE CAST LPF (0-3 Hyaline); Pathc Cast-AUWi Flag 0.87 (0-2.49); RBC/HPF GREATER THAN 50-TNTC HPF (0-3); Squamous Epithelial 0-3 HPF (0-3)
[2018-11-08 13:01] LABS: INR-International Normal Ratio 1.6; Prothrombin Time 19.1 SEC (12.0-14.7)
[2018-11-08 13:02] LABS: PTT 36.4 SEC (22.9-36.1)
[2018-11-08] MEDS ORDERED: Furosemide 40 MG/4 ML VIAL ONE (13:17)
--- NOTE | 2018-11-08 14:05 | CT ---
CT ABDOMEN AND PELVIS WITH IV CONTRAST: HISTORY: Abdominal pain. Cirrhosis. COMPARISON: 06/27/2018. FINDINGS: Lung bases are clear. Cirrhotic appearance of the liver is again demonstrated. A small amount of fr ee fluid throughout the abdomen and pelvis. Diffuse stranding throughout the subcutaneous fat. The partially calcified splenic artery aneurysm appears stable, measuring 2.3 cm on today's study. S plenic varices are again demonstrated. Wall thickening about the gallbladder has the appearance of c hronic liver disease. Urinary bladder is incompletely distended. IMPRESSION: 1. CT findings of cirrhosis of portal venous hypertension. Overall stable compared to prior study f rom 06/27/2018. 2. Other findings are also stable. POS: [facility]
[2018-11-08] MEDS ORDERED: Iopamidol 370 76% 100 ML VIAL ONE (15:03)
[2018-11-08 15:44] LABS: Lactic Acid 1.8 mmol/L (0.5-2.2)
[2018-11-08 17:13] VITALS: BMI 38.0
[2018-11-08] MEDS ORDERED: Ondansetron ODT 4 MG TAB SL PRN (17:21)
[2018-11-08] MEDS ORDERED: Ondansetron PF 4 MG/2 ML Vial IVP PRN (17:21)
[2018-11-08] MEDS ORDERED: Dextrose 50% Abboject 50 ML SYRINGE IVP PRN (18:25)
[2018-11-08] MEDS ORDERED: Dextrose 5% in Water 1,000 ML IV PRN (18:25)
[2018-11-08] MEDS ORDERED: Insulin Regular 300 UNITS/3 ML VIAL SC PRN (18:25)
[2018-11-09 05:32] LABS: ALT (SGPT) 18 U/L (8-55); AST (SGOT) 51 U/L (5-34); Albumin 2.4 g/dL (3.5-5.0); Alkaline Phosphatase 77 U/L (40-150); Anion Gap 12 mmol/L (10-20); BUN (Urea Nitrogen) 17 mg/dL (9.8-20.1); Bilirubin, Total 3.8 mg/dL (0.2-1.2); Calc. Creatinine Clearance 72 mL/min (70-130); Calcium 8.6 mg/dL (7.8-10.44); Carbon Dioxide 17 mmol/L (22-29); Chloride 107 mmol/L (98-107); Estimated GFR-MDRD 38; Globulin 4.9 g/dL (2.4-3.5); Glucose 115 mg/dL (70-105); Potassium 4.1 mmol/L (3.5-5.1); Protein, Total 7.3 g/dL (6.0-8.3); Sodium 132 mmol/L (136-145)
[2018-11-09 05:38] LABS: Band 1 % (5-11); Eosinophils 1 % (0-10); Hemoglobin 7.6 g/dL (12.0-16.0); Hypochromia SLIGHT = 6-15 cells (100X) (0-5/hpf); Lymphocytes 7 % (21-51); MDiff Complete? YES; Mean Corpuscular HGB CONC 28.9 g/dL (32.0-36.0); Mean Corpuscular Hemoglobin 21.8 pg (27.0-31.0); Mean Corpuscular Volume 75.4 fL (78.0-98.0); Mean Platelet Volume 8.3 fL (7.4-10.4); Monocytes 8 % (0-10); Neutrophil 82 % (42-75); PLT Morphology Comment Appears Decreased; Platelet Count 77 thou/uL (130-400); Polychromasia SLIGHT = 2-3 cells (100X) (0-2/hpf); RBC Distribution Width 20.1 % (11.5-14.5); Reactive Lymphocytes 1 % (0-10); Red Blood Cell (RBC) Count 3.49 mill/uL (4.20-5.40); Target Cells SLIGHT = 2-5 cells (100X) (0-1/hpf); White Blood Cell (WBC) Count 4.4 thou/uL (4.8-10.8)
[2018-11-09] MEDS: Furosemide 40 MG/4 ML VIAL SLOW IVP SCH ×2 (06:49→18:40)
[2018-11-09] MEDS: Spironolactone 100 MG TAB PO SCH (09:25)
--- NOTE | 2018-11-09 13:38 | HP ---
CHIEF COMPLAINT: Abdominal distention and leg edema. HISTORY OF PRESENT ILLNESS: Ms. Dinh is a 53-year-old female with past medical history of cirrhosis of the liver with portal hypertension, ascites and diastolic dysfunction, came because of worsening abdominal distention and pain and leg edema. The patient says that she has been taking fluid pills regularly. The patient was seen in the ER 3 weeks ago and her Lasix dose was increased to 20 b.i.d. and spironolactone was increased from 25 to 50 and stated that her swelling was getting worse to the point, she has lot of discomfort in the abdomen and some shortness of breath. The patient came to the emergency room, she was alert, did not have any fever, did not have any chest pain, no nausea, vomiting. She was found to have marked edema on both legs and abdominal distention. The patient received a dose of Lasix and Zofran for the nausea. The patient is admitted for further evaluation and management. PAST MEDICAL HISTORY: 1. Cirrhosis of liver with portal hypertension. 2. Anasarca. 3. Diastolic dysfunction. 4. Hepatitis C. 5. Diabetes mellitus, diet controlled. CURRENT MEDICATIONS: 1. Lasix 20 mg b.i.d. 2. Spironolactone 50 mg daily. FAMILY HISTORY: Nothing contributory. SOCIAL HISTORY: The patient lives with family. No history of smoking. No history of smoking, no acohol REVIEW OF SYSTEMS: Unremarkable except for the abdominal discomfort as well as leg edema. PHYSICAL EXAMINATION: GENERAL: The patient is alert, awake, and oriented x3. VITALS SIGNS: Temperature 98, pulse 92, respiratory rate 20, blood pressure 120/ 50. HEENT: Normocephalic, atraumatic. Pupils equal and reactive. Nasopharynx is pale. NECK: Supple. No JVD. LUNGS: Bilateral air entry. No rales, no rhonchi. HEART: S1 and S2, regular. ABDOMEN: distended, mildly tender, no guarding, no masses, BS+. EXTREMITIES: There is 4+ pitting edema going into the thigh. LABORATORY DATA: CBC shows WBC 6.5, hemoglobin 8.7, hematocrit 28, platelets 89. Prothrombin time 19, INR 1.6. Metabolic panel: Sodium 132, potassium 4.5. BNP was 728. Urinalysis; rbc greater than 50, no bacteria ASSESSMENT: 1. Anasarca. 2. Cirrhosis of the liver. 3. Portal hypertension. 4. Pancytopenia. 5. Diastolic dysfunction. 6. History of hepatitis C. PLAN: 1. Vital signs every 4 hours. 2. Activity: As tolerated. 3. Allergies: NKDA. 4. Lasix 40 mg ivp bid 5. Spironolactone 100 mg daily. 6. CMP in the morning. GI consult. Intake and output and weigh the patient daily. 7. Accu-Chek before meals and at bedtime, sliding scale mild with regular insulin. Job ID: [id number] [facility]
--- NOTE | 2018-11-09 14:32 | CON ---
DATE OF CONSULTATION: 11/09/2018 TYPE OF CONSULTATION: Gastroenterology consultation. CHIEF COMPLAINT: Abdominal swelling and discomfort. HISTORY OF PRESENT ILLNESS: Ms. Dinh is a 53-year-old woman with cirrhosis secondary to steatohepatitis, who presented to the emergency room yesterday with increased lower extremity edema and abdominal swelling and discomfort. She had a CT scan of the abdomen and pelvis performed, which shows anasarca, but not significant ascites. After she has been lying in the bed with her feet elevated, her abdominal distention and pain has resolved. She has had no nausea, vomiting, diarrhea, or constipation. No confusion. No overt blood in the stool or black stools. She states that Dr. Thompson increased her furosemide from 20 mg to 40 mg and spironolactone from 100 mg to 100 mg b.i.d. almost a month ago. She has been limiting her salt intake. PAST MEDICAL HISTORY: Cirrhosis of liver secondary to steatohepatitis, anasarca, diastolic congestive heart failure, iron-deficiency anemia. She underwent EGD and colonoscopy back in June of 2018, which were negative for bleeding source. Duodenal biopsies were negative for celiac disease. She has mitral and tricuspid regurgitation. Of note, she had a hepatitis C antibody positive; however, the RNA is negative indicating either past exposure with spontaneous resolution of the infection she does not have chronic hepatitis C. PAST SURGICAL HISTORY: Upper and lower endoscopy back in June of 2018. She had a liver biopsy in September of 2018. She has had . FAMILY HISTORY: Positive for liver cancer in her mother, liver cancer in her grandfather. SOCIAL HISTORY: No alcohol. No drugs. No smoking. ALLERGIES: NO KNOWN DRUG ALLERGIES. MEDICATIONS: Prior to admission; 1. Spironolactone 100 mg twice daily. 2. Furosemide 20 mg twice daily. REVIEW OF SYSTEMS: Negative x10 systems reviewed except as stated in the history of present illness. PHYSICAL EXAMINATION: VITAL SIGNS: Temperature 97.9, pulse 90, blood pressure 103/54. GENERAL: She is in no acute distress. Alert and oriented x3. HEENT: Eyes have no scleral icterus. Oropharynx is clear without lesions. No cervical or supraclavicular lymphadenopathy. LUNGS: Clear to auscultation bilaterally. HEART: Regular rate and rhythm without murmur. ABDOMEN: Soft, nontender, and nondistended. Bowel sounds are present. EXTREMITIES: 2+ pitting lower extremity edema. IMPRESSION: 1. Anasarca secondary to cirrhosis and hypoalbuminemia, but also with diastolic heart failure with mitral and tricuspid regurgitation. 2. Cirrhosis of the liver secondary to steatohepatitis. She has decompensated with a bilirubin of 3.8, INR of 1.6, and creatinine of 1.44. Her albumin is 2.4. 3. Symptomatic anemia. She does have weakness and she could benefit from transfusion potentially with her renal perfusion as well. This could also help with heart failure. At this point, we will plan transfusion. Her abdominal pain and distention have improved. I will continue the diuretics at the current dose. RECOMMENDATIONS: 1. Transfuse 1 unit of red blood cells today. 2. Continue furosemide and spironolactone at current doses. 3. Continue salt restriction. 4. She should be ready to discharge home after transfusion as she has no overt bleeding and her abdominal pain is improved and swelling is improved. She is encouraged to try to stay off her feet and keep her feet elevated when able. 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 Job ID: [id number]
[2018-11-10 05:34] LABS: Band 1 % (5-11); Eosinophils 2 % (0-10); Hemoglobin 8.1 g/dL (12.0-16.0); Lymphocytes 15 % (21-51); MDiff Complete? YES; Mean Corpuscular HGB CONC 30.1 g/dL (32.0-36.0); Mean Corpuscular Hemoglobin 22.9 pg (27.0-31.0); Mean Corpuscular Volume 76.3 fL (78.0-98.0); Mean Platelet Volume 12.5 fL (7.4-10.4); Monocytes 18 % (0-10); Neutrophil 64 % (42-75); PLT Morphology Comment Appears Decreased; Platelet Count 66 thou/uL (130-400); RBC Distribution Width 20.2 % (11.5-14.5); Red Blood Cell (RBC) Count 3.51 mill/uL (4.20-5.40); White Blood Cell (WBC) Count 3.6 thou/uL (4.8-10.8)
[2018-11-10] MEDS: Furosemide 40 MG/4 ML VIAL SLOW IVP SCH (06:09)
[2018-11-10] MEDS ORDERED: Acetaminophen 325 MG TAB PO PRN (08:52)
[2018-11-10] MEDS: Spironolactone 100 MG TAB PO SCH (09:29)
[2018-11-10 11:14] LABS: Anion Gap 12 mmol/L (10-20); BUN (Urea Nitrogen) 17 mg/dL (9.8-20.1); Calc. Creatinine Clearance 71 mL/min (70-130); Calcium 8.2 mg/dL (7.8-10.44); Carbon Dioxide 19 mmol/L (22-29); Chloride 105 mmol/L (98-107); Estimated GFR-MDRD 39; Glucose 163 mg/dL (70-105); Potassium 3.4 mmol/L (3.5-5.1); Sodium 133 mmol/L (136-145)
[2018-11-10] MEDS ORDERED: Potassium Chloride 20 MEQ TAB PO SCH (12:00)
[2018-11-10 12:12] VITALS: BP 105/59; TEMP 98.2
--- NOTE | 2018-11-11 11:58 | DIS ---
DATE OF ADMISSION: 11/08/2018 DATE OF DISCHARGE: 11/10/2018 ADMITTING DIAGNOSES: 1. Anasarca. 2. Cirrhosis of liver. 3. Portal hypertension. 4. Pancytopenia. 5. Diastolic dysfunction. 6. History of hepatitis C. FINAL DIAGNOSES: 1. Anasarca, improved. 2. Cirrhosis of liver. 3. Portal hypertension. 4. Pancytopenia. 5. Diastolic dysfunction. BRIEF SUMMARY OF HOSPITAL COURSE: Ms. Dinh is a 53-year-old female admitted because of marked increase in edema and abdominal distention and anasarca.. She was started on Lasix and spironolactone. The next day, the patient markedly improved, her swelling has gone down. GI consulted, Dr. Conde who suggested in view of her pancytopenia and low hemoglobin, received 1 unit of transfusion of PRBC. She is to continue the Lasix and spironolactone at current doses. Her hemoglobin improved from 7.6 to 8.1. In view of improvement, patient is being discharged. DISCHARGE MEDICATIONS: Include: Lasix 40 mg b.i.d. Spironolactone 100 mg daily. FOLLOWUP: The patient will come for a followup in 2 weeks. Job ID: [id number] [facility]
== END 2018-11-10 12:45 | disposition home or self-care (01) ==
LOC: ERS 09:39 → 2SW 17:04
PROVIDERS: ADMIT Internal Medicine; ATTEND Internal Medicine
DX: R60.1 Generalized edema (principal); K76.6 Portal hypertension; K74.60 Unspecified cirrhosis of liver; D61.818 Other pancytopenia; K75.81 Nonalcoholic steatohepatitis (NASH); I50.30 Unspecified diastolic (congestive) heart failure; I36.1 Nonrheumatic tricuspid (valve) insufficiency; I34.0 Nonrheumatic mitral (valve) insufficiency; E11.9 Type 2 diabetes mellitus without complications; B19.20 Unspecified viral hepatitis C without hepatic coma; D50.9 Iron deficiency anemia, unspecified; E88.09 Other disorders of plasma-protein metabolism, not elsewhere classified; Z88.6 Allergy status to analgesic agent; Z79.899 Other long term (current) drug therapy; Z98.890 Other specified postprocedural states
CPT/HCPCS: 36415; 36416; 36430; 71045; 74176; 80048; 80053; 81003; 81015; 83605; 83690; 83880; 84484; 85025; 85610; 85730; 86850; 86900; 86901; 87040; 87086; 93005; 96374; 96375; 96376; G0378; J1815; J1940; J2270; J2405; P9016

== ENCOUNTER 2018-12-14 14:30 | Inpatient (IN) | payer OTHER, SELFPAY ==
[2018-12-14 15:28] LABS: Hemoglobin 8.1 g/dL (12.0-16.0); Mean Corpuscular HGB CONC 28.1 g/dL (32.0-36.0); Mean Corpuscular Hemoglobin 22.2 pg (27.0-31.0); Mean Corpuscular Volume 79.2 fL (78.0-98.0); Mean Platelet Volume 8.2 fL (7.4-10.4); Platelet Count 66 thou/uL (130-400); RBC Distribution Width 20.7 % (11.5-14.5); Red Blood Cell (RBC) Count 3.62 mill/uL (4.20-5.40); White Blood Cell (WBC) Count 2.9 thou/uL (4.8-10.8)
[2018-12-14 15:44] LABS: ALT (SGPT) 14 U/L (8-55); AST (SGOT) 43 U/L (5-34); Albumin 2.4 g/dL (3.5-5.0); Alkaline Phosphatase 95 U/L (40-150); Anion Gap 12 mmol/L (10-20); BUN (Urea Nitrogen) 11 mg/dL (9.8-20.1); Bilirubin, Total 4.3 mg/dL (0.2-1.2); Calc. Creatinine Clearance 0 mL/min (70-130); Calcium 8.2 mg/dL (7.8-10.44); Carbon Dioxide 19 mmol/L (22-29); Chloride 105 mmol/L (98-107); Estimated GFR-MDRD 51; Globulin 4.4 g/dL (2.4-3.5); Glucose 131 mg/dL (70-105); Lipase 74 U/L (8-78); Protein, Total 6.8 g/dL (6.0-8.3); Sodium 133 mmol/L (136-145)
[2018-12-14 15:46] LABS: Potassium 2.8 mmol/L (3.5-5.1)
[2018-12-14 15:55] LABS: Anisocytosis SLIGHT = 6-15 cells (100X) (0-5/hpf); Band 4 % (5-11); Hypochromia SLIGHT = 6-15 cells (100X) (0-5/hpf); Lymphocytes 12 % (21-51); MDiff Complete? YES; Monocytes 4 % (0-10); Neutrophil 80 % (42-75); Platelet Morphology Comment Appears Decreased
--- NOTE | 2018-12-14 16:33 | RAD ---
CHEST ONE VIEW 12/14/18 HISTORY: Chest pain. COMPARISON: 11/08/18. FINDINGS: The cardiac silhouette is magnified by enlarged. Pulmonary vasculature upper limits of normal. Medias tinum is midline. No lobar consolidation or evidence of pneumothorax. IMPRESSION: Cardiomegaly. No florid pulmonary edema is demonstrated. POS: [facility]
[2018-12-14 18:03] LABS: Bilirubin Moderate (Negative); Blood, Urine Large (Negative); Clarity CLOUDY (Clear); Glucose, Urine (Dipstick) Negative (Negative); Leukocyte Negative (Negative); Nitrite Negative (Negative); Protein, Urine (Dipstick) 100 mg/dL (Neg-Trace); Specific Gravity, Urine 1.013 (1.002-1.036)
[2018-12-14] MEDS ORDERED: Potassium Chloride 40 MEQ in Sodium Chloride 0.9% 250 ML 250 ML IVPB SCH (18:15)
[2018-12-14 18:20] LABS: Pathc Cast-AUWi Flag 2.76 (0-2.49)
[2018-12-14 18:29] LABS: Bacteria/HPF 2+ HPF (None Seen); Hyaline Casts/LPF NONE SEEN LPF (0-3 Hyaline); Manual Microscopic Reviewed? No Path Casts Seen; Yeast-All Forms 1+ HPF (None Seen)
[2018-12-14] MEDS ORDERED: Morphine 4 MG/ML VIAL ONE (18:34)
[2018-12-14] MEDS ORDERED: Ondansetron PF 4 MG/2 ML Vial ONE (18:34)
[2018-12-14 21:58] LABS: Troponin I 0.028 ng/mL (< 0.028)
[2018-12-14] MEDS ORDERED: Ondansetron PF 4 MG/2 ML Vial IVP PRN (22:03)
[2018-12-14] MEDS ORDERED: Ondansetron ODT 4 MG TAB SL PRN (22:03)
[2018-12-14] MEDS ORDERED: Acetaminophen 325 MG TAB PO PRN (22:03)
[2018-12-14] MEDS ORDERED: Ondansetron ODT 4 MG TAB PO PRN (22:08)
[2018-12-14] MEDS ORDERED: Senokot S 8.6-50 MG TAB PO PRN (22:08)
[2018-12-14] MEDS ORDERED: HumaLOG 300 UNITS/3 ML VIAL SC PRN ×2 (22:08)
[2018-12-14] MEDS ORDERED: Dextrose 50% Abboject 50 ML SYRINGE SLOW IVP PRN (22:08)
[2018-12-14] MEDS ORDERED: Dextrose 5% in Water 1,000 ML IV PRN (22:08)
[2018-12-14] MEDS ORDERED: Furosemide 100 MG/10 ML VIAL SLOW IVP SCH (22:15)
[2018-12-14] MEDS: HYDROcodone/Acetaminophen 5/325 mg Tablet PO PRN (22:25)
[2018-12-14] MEDS ORDERED: Famotidine 20 MG TAB PO SCH (22:30)
--- NOTE | 2018-12-15 00:33 | HP ---
PRIMARY CARE PHYSICIAN: Idalia Modi PA-C Previously was patient of Dr. Obando until the last month. CHIEF COMPLAINT: Abdominal and lower extremity swelling and pain. HISTORY OF PRESENT ILLNESS: This is a 53-year-old female with a known history of cirrhosis of the liver likely secondary to steatohepatitis, who has had multiple hospital admissions for increasing swelling of her legs and abdomen that causes a lot of abdominal pain. She always diuresed as well in the hospital but then when she gets back home, she will have worsening of her symptoms again. She does report taking her medications and is now on a fairly high dose of Lasix 80 mg twice a day along with spironolactone 100 daily, but uncertain if she is compliant with fluid and salt restriction. The patient reports that her symptoms started getting worse a couple of days ago and she went to her primary care doctor's office today, who told her to come in here to be evaluated to see if she was having any congestive failure. The patient does have a history of some diastolic dysfunction, but most of her issues are thought to be related to her liver. PAST MEDICAL HISTORY: 1. Cirrhosis of the liver, secondary to steatohepatitis. 2. Portal hypertension. 3. Pancytopenia. 4. Diastolic dysfunction. 5. Positive hepatitis C antibody with negative RNA on the blood test. 6. Diabetes mellitus type 2, diet controlled. 7. Hypertension controlled off medication. 8. Morbid obesity. 9. Chronic kidney disease, stage 2 to 3. PAST SURGICAL HISTORY: x3. SOCIAL HISTORY: The patient is , lives at home with her family. No tobacco, alcohol, or illicit drug use. FAMILY HISTORY: Positive for diabetes in her parents. Mother with cervical and liver cancer. Father with lung cancer. ALLERGIES: ASPIRIN CAUSES GASTROINTESTINAL UPSET. CURRENT MEDICATIONS: 1. Lasix either 40 or 80 mg twice a day. 2. Spironolactone 100 mg daily. REVIEW OF SYSTEMS: CONSTITUTIONAL: No fevers, no chills. EYES: No double vision or blurred vision. ENT: No congestion, drainage or sore throat. CARDIOVASCULAR: No chest pain. No palpitations or racing heart. PULMONARY: She has a mild cough and little bit of shortness of breath that she gets whenever her swelling increases a lot. No wheezing. GASTROINTESTINAL: She has lower abdominal wall pain from the tightness of the swelling. She has some nausea symptoms when she stands up, but no vomiting. No diarrhea or constipation. GENITOURINARY: No dysuria or hematuria. She has had good urine output with Lasix at home. MUSCULOSKELETAL: No muscle aches or joint pains. She does have lower extremity edema. SKIN: She has some itchy papules that she has developed for the last few months, seems to be improving. It is diffusely over her body. NEUROLOGIC: No numbness, tingling, or focal weakness. PHYSICAL EXAMINATION: VITAL SIGNS: Blood pressure 96/68, pulse 88, respirations 20, temperature 98.8, and O2 saturation 96% on room air. GENERAL: This is a well-developed obese female, in no acute distress. HEENT: Pupils are equal, round, and reactive to light. Oropharynx clear without lesions, erythema, or exudate. NECK: Supple. No lymphadenopathy. No thyroid nodules or enlargement. No JVD. HEART: Regular rate and rhythm. No murmurs, rubs, or gallops. LUNGS: Clear to auscultation bilaterally. No wheezes, crackles, or rhonchi. ABDOMEN: Soft, obese. She had does have abdominal wall edema of the lower edge of the pannus which is tender to palpation, but no rashes or cellulitis visible. Otherwise, no masses noted. No significant fluid wave noted at this time. EXTREMITIES: The patient has 2+ pitting edema to bilateral lower extremities all the way up past the knees. No cellulitis visible. No clubbing or cyanosis. SKIN: The patient has few scattered papules in various stages of healing that look excoriated and cover all her arms and legs and on her abdomen. None of them look infected at this time. 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 NEUROLOGIC: Intact strength and sensation in all extremities. No facial droop. PSYCHIATRIC: Alert and oriented x3. Normal mood and affect. LABORATORY DATA: White blood cell count 2.9, hemoglobin 8.1, hematocrit 28.7, and platelet count 66. These are all fairly consistent with previous labs. The patient has required blood transfusions in the past for low hemoglobin. Complete metabolic panel notable for sodium of 133, potassium of 2.8 with 40 mEq bag of potassium chloride, right now in the emergency room. Carbon dioxide 19. Creatinine of 1.11, which is up a little bit from last month, but down from the previous month before that. Glucose of 131. Total bilirubin of 4.3, which is the highest she has ever been. AST of 43 and albumin of 2.4. Troponin was negative. Creatine kinase was normal. Brain natriuretic peptide was 752, which is higher than it was last month, but consistent with her previous admissions here. Urinalysis showed some rbc's, few white blood cells, some 2+ bacteria with squamous epithelial cells. No leukocyte esterase or nitrites. Chest x-ray, I did review the chest x-ray done in the emergency room along with the radiologist's report. It did show some cardiomegaly without any evidence of pulmonary edema. EKG done in the emergency room does show normal sinus rhythm with an incomplete right bundle branch block. No ST-segment changes. ASSESSMENT: 1. Lower extremity and abdominal wall edema likely secondary to patient's liver disease, though there may be some of diastolic congestive failure component as well. We will give patient Lasix 80 mg IV twice a day along with continuing her spironolactone and watch for diuresis. Dr. Orta was already consulted by the emergency room and will follow the patient with us. 2. History of diastolic congestive heart failure. Will fluid restrict and salt restrict the patient, and we will continue diuresis. 3. Hypokalemia. Replacing and we will follow closely and give replacement as needed. 4. History of diabetes mellitus type 2, diet controlled. We will check fingerstick blood sugars q.a.c. and at bedtime with low insulin sliding scale. 5. Gastrointestinal prophylaxis. The patient is on Pepcid twice a day. 6. Deep venous thrombosis prophylaxis. The patient is already likely coagulopathic from her liver disease. 7. Code status. I discussed with the patient. She stated that she is a do not resuscitate and does not want any sort of resuscitation. Her would be her medical decision maker should she be incapacitated, his name is Julio Dinh. I will go ahead and have Palliative Care consult this patient due to her progressive significant liver disease and have them answer any questions that she has about code status as well. Job ID: [id number]
[2018-12-15] MEDS: Ondansetron PF 4 MG/2 ML Vial IVP PRN ×2 (06:23→17:22)
[2018-12-15] MEDS: Furosemide 100 MG/10 ML VIAL SLOW IVP SCH ×2 (06:29→13:45)
[2018-12-15 06:40] LABS: #Lymphocytes 0.4 thou/uL (1.20-3.40); #Monocytes 0.4 thou/uL (0.11-0.59); #Neutrophils 3.2 thou/uL (1.40-6.50); %Basophils 0.8 % (0.0-1.0); %Eosinophils 0.5 % (0.0-10.0); %Lymphocytes 9.8 % (21.0-51.0); %Monocytes 8.9 % (0.0-10.0)
[2018-12-15 06:43] LABS: Anion Gap 15 mmol/L (10-20); BUN (Urea Nitrogen) 13 mg/dL (9.8-20.1); Calc. Creatinine Clearance 79 mL/min (70-130); Calcium 8.6 mg/dL (7.8-10.44); Carbon Dioxide 18 mmol/L (22-29); Chloride 106 mmol/L (98-107); Estimated GFR-MDRD 42; Glucose 117 mg/dL (70-105); Potassium 3.8 mmol/L (3.5-5.1); Sodium 135 mmol/L (136-145)
[2018-12-15 06:46] LABS: Hemoglobin 8.5 g/dL (12.0-16.0); Mean Corpuscular HGB CONC 28.9 g/dL (32.0-36.0); Mean Corpuscular Volume 79.6 fL (78.0-98.0); Platelet Count 75 thou/uL (130-400); RBC Distribution Width 20.4 % (11.5-14.5); Red Blood Cell (RBC) Count 3.71 mill/uL (4.20-5.40)
--- NOTE | 2018-12-15 07:06 | PDOC.PN ---
- Subjective Encounter Start Date: 12/15/18 Encounter Start Time: 09:50 Subjective: Patient feeling a little bit better with diuresis in the hospital. -: Feels like her abdominal and LE swelling is a bit better. Still with -: some cough when lying down. - Objective Resuscitation Status - Order Detail: 12/14/18 20:37 Resuscitation Status Routine Resuscitation Status: DNAR: NO Resuscitation Discussed with: Patient MAR Reviewed: Yes Vital Signs & Weight: Vital Signs (12 hours) Temp Pulse Resp BP Pulse Ox 12/15/18 03:33 98 F 100 15 112/66 94 L 12/15/18 01:16 16 12/14/18 23:34 97.2 F L 96 21 H 111/71 92 L 12/14/18 22:08 98.2 F 91 14 114/74 92 L Weight Weight 223 lb 6.4 oz Result Diagrams: 12/15/18 06:04 12/15/18 06:04 Additional Labs: Accuchecks 12/15/18 12/14/18 06:38 22:38 POC Glucose 116 H 112 H Phys Exam - Physical Examination Constitutional: NAD HEENT: moist MMs Respiratory: no wheezing, no rales, no rhonchi Cardiovascular: RRR, no significant murmur Gastrointestinal: soft, positive bowel sounds abdominal wall edema that is a bit tender on lower panus edge Musculoskeletal: edema present Neurological: non-focal, moves all 4 limbs Psychiatric: normal affect, A&O x 3 Dx/Plan (1) Anasarca Code(s): R60.1 - GENERALIZED EDEMA Status: Acute Comment: Worst in lower extremities and lower abdominal pannus, attempting diuresis but with elevating creatinine (2) Cirrhosis of liver Code(s): K74.60 - UNSPECIFIED CIRRHOSIS OF LIVER Status: Chronic Qualifiers: Hepatic cirrhosis type: other cirrhosis Qualified Code(s): K74.69 - Other cirrhosis of liver Comment: likely due to hepatosteatosis (3) Diastolic CHF, acute on chronic Code(s): I50.33 - ACUTE ON CHRONIC DIASTOLIC (CONGESTIVE) HEART FAILURE Status : Acute (4) Acute kidney failure Status: Acute Comment: creatinine elevating with attempted IV diuresis (5) Hypokalemia Code(s): E87.6 - HYPOKALEMIA Status: Resolved (6) Thrombocytopenia Code(s): D69.6 - THROMBOCYTOPENIA, UNSPECIFIED Status: Chronic (7) Anemia, normocytic normochromic Code(s): D64.9 - ANEMIA, UNSPECIFIED Status: Chronic (8) DM II (diabetes mellitus, type II), controlled Code(s): E11.9 - TYPE 2 DIABETES MELLITUS WITHOUT COMPLICATIONS Status: Chronic Comment: diet controlled (9) HTN (hypertension) Code(s): I10 - ESSENTIAL (PRIMARY) HYPERTENSION Status: Chronic Qualifiers: Hypertension type: essential hypertension Qualified Code(s): I10 - Essential (primary) hypertension Comment: (10) Obesity (BMI 30-39.9) Code(s): E66.9 - OBESITY, UNSPECIFIED Status: Chronic - Plan cont current plan of care GI consult pending * . - Discharge Day Encounter end time: 10:00
[2018-12-15 07:32] LABS: Hypochromia MODERATE=16-30 cells (100X) (0-5/hpf); MDiff Complete? YES; Microcytosis SLIGHT = 6-15 cells (100X) (0-5/hpf); Platelet Morphology Comment Appears Decreased; Polychromasia SLIGHT = 2-3 cells (100X) (0-2/hpf)
[2018-12-15] MEDS: Famotidine 20 MG TAB PO SCH ×2 (08:57→20:33)
[2018-12-15] MEDS: Spironolactone 100 MG TAB PO SCH (08:57)
--- NOTE | 2018-12-16 02:00 | CON ---
DATE OF CONSULTATION: 12/15/2018 REASON FOR CONSULTATION: Ascites and abdominal pain. HISTORY OF PRESENT ILLNESS: Mrs. Dinh is a 53-year-old female with hepatic cirrhosis from steatohepatitis with difficult to control ascites. She presented to the ER yesterday with several-day history of increasing leg swelling and abdominal distention with concurrent diffuse abdominal pain, more so in the lower part. She did report having some nausea, but without any vomiting. She denies having any fever or chills. One day prior to admission, she began to have increasing shortness of breath. She reports taking Lasix 40 mg daily and spironolactone 100 mg daily with adherence to salt restriction. Since admission, she has been diuresed with IV furosemide and p.o. spironolactone. She reports having small urine output since admission then at home in addition to decreasing abdominal swelling and discomfort and peripheral edema. In addition, she reports much improvement in her shortness of breath. The patient had been referred to [facility] for transplant evaluation. The Transplant Center has unable to contact the patient on three separate occasions and had informed the office. PAST MEDICAL HISTORY: 1. Cirrhosis from steatohepatitis. 2. Portal hypertension manifesting as ascites. The EGD in 06/2018 did not show any varices. 3. Diastolic dysfunction. 4. Adult onset diabetes. 5. Hypertension. 6. Chronic kidney disease. 7. Morbid obesity. 8. Status post . MEDICATIONS: At home, include; 1. Furosemide 40 mg b.i.d. 2. Spironolactone 100 mg daily. 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 She is . Has no tobacco or alcohol usage. FAMILY HISTORY: Negative for any known GI problem, liver disease, or GI malignancy. REVIEW OF SYSTEMS: Ten-point review of systems did not show any other pertinent positives or negatives. PHYSICAL EXAMINATION: VITAL SIGNS: Temperature is 97.9, blood pressure 92/53, pulse of 87. GENERAL: She is alert, conversant, oriented, and lucid. HEENT: Shows anicteric sclerae. Oropharynx clear. NECK: Supple. CV: Shows normal S1, S2. Regular rate and rhythm. CHEST: Shows breath sound. No rales or rhonchi. ABDOMEN: Protuberant. There is mild pitting edema involving the lower abdominal wall. Mildly diffusely tender, but no guarding or rebound. Organomegaly is not assessable secondary to size. She has active bowel sounds. EXTREMITIES: Show 1+ pretibial and pedal edema. LABORATORY DATA: WBC is 4.0, hemoglobin 8.5, and platelet count of 75. Electrolytes within normal range. Potassium is 3.8, creatinine is 1.32 with GFR estimation of 42. ASSESSMENT: Cirrhosis with portal hypertension with difficult to control ascites. The patient is admitted with anasarca, increased ascites, and shortness of breath, all of which have improved since IV diuresis. The patient reports compliant with her medications at home. I am not sure whether she is compliant with her low- salt diet or not. At this point, it appears unlikely that she has any infection or spontaneous bacterial peritonitis. Her abdominal pain and discomfort have improved since IV diuresis. Continue with IV furosemide and p.o. spironolactone. No need for IV albumin at this point as she appears to be diuresing well. RECOMMENDATIONS: 1. Continue IV furosemide. 2. Continue salt restriction. 3. If the patient continues to improve, then she can be discharged to home on furosemide 40 mg b.i.d. and spironolactone 100 mg b.i.d. Spironolactone dose can be increased to 100 mg b.i.d. as she presented with low potassium. 4. We will contact [facility] about contacting patient the again to set up appointment for transplant evaluation. 5. Otherwise, no other recommendation at this point. We will follow. Job ID: [id number] MTDD
[2018-12-16 05:52] LABS: #Eosinphils 0.1 thou/uL (0.0-0.7); #Lymphocytes 0.7 thou/uL (1.20-3.40); #Monocytes 0.8 thou/uL (0.11-0.59); #Neutrophils 3.6 thou/uL (1.40-6.50); %Basophils 0.5 % (0.0-1.0); %Lymphocytes 12.8 % (21.0-51.0); %Monocytes 14.6 % (0.0-10.0); %Neutrophils 70.2 % (42.0-75.0); Hemoglobin 8.6 g/dL (12.0-16.0); Mean Corpuscular Hemoglobin 22.8 pg (27.0-31.0); Mean Corpuscular Volume 81.4 fL (78.0-98.0); Mean Platelet Volume 8.6 fL (7.4-10.4); Platelet Count 83 thou/uL (130-400); RBC Distribution Width 21.1 % (11.5-14.5); Red Blood Cell (RBC) Count 3.77 mill/uL (4.20-5.40); White Blood Cell (WBC) Count 5.2 thou/uL (4.8-10.8)
[2018-12-16 06:30] LABS: Anion Gap 17 mmol/L (10-20); BUN (Urea Nitrogen) 19 mg/dL (9.8-20.1); Calc. Creatinine Clearance 52 mL/min (70-130); Calcium 8.9 mg/dL (7.8-10.44); Carbon Dioxide 14 mmol/L (22-29); Chloride 105 mmol/L (98-107); Estimated GFR-MDRD 26; Glucose 109 mg/dL (70-105); Potassium 4.8 mmol/L (3.5-5.1); Sodium 131 mmol/L (136-145)
[2018-12-16] MEDS: Furosemide 100 MG/10 ML VIAL SLOW IVP SCH (07:27)
[2018-12-16] MEDS: Spironolactone 100 MG TAB PO SCH (08:18)
[2018-12-16] MEDS: Famotidine 20 MG TAB PO SCH ×2 (08:19→20:39)
--- NOTE | 2018-12-16 08:55 | PDOC.PN ---
- Subjective Encounter Start Date: 12/16/18 Encounter Start Time: 11:30 Subjective: Patient reports persistent distended and swollen belly, specifically -: the skin of the inferior pannus. No change since yesterday. - Objective Resuscitation Status - Order Detail: 12/14/18 20:37 Resuscitation Status Routine Resuscitation Status: DNAR: NO Resuscitation Discussed with: Patient DIPAK Reviewed: Yes Vital Signs & Weight: Vital Signs (12 hours) Temp Pulse Resp BP BP Pulse Ox 12/16/18 08:00 97.4 F L 84 12 91/66 92 L 12/16/18 05:18 87 94/67 12/16/18 03:49 97.5 F L 85 16 86/53 L 92 L 12/15/18 23:34 98.0 F 88 16 100/55 L 96 Weight Admit Weight 224 lb 12.8 oz Weight 224 lb 14.4 oz I&O: 12/15/18 12/16/18 12/17/18 06:59 06:59 06:59 Intake Total 368 Balance 368 Result Diagrams: 12/16/18 04:35 12/16/18 04:35 Additional Labs: Accuchecks 12/15/18 12/15/18 12/15/18 21:00 17:15 10:23 POC Glucose 149 H 124 H 132 H Phys Exam - Physical Examination Constitutional: NAD HEENT: moist MMs Respiratory: no wheezing, no rales, no rhonchi Cardiovascular: RRR Gastrointestinal: soft, positive bowel sounds obese, some edema to pannus and TTP Musculoskeletal: edema present decreased from admit Neurological: non-focal, moves all 4 limbs Psychiatric: normal affect, A&O x 3 Dx/Plan (1) Anasarca Code(s): R60.1 - GENERALIZED EDEMA Status: Acute Comment: Worst in lower extremities and lower abdominal pannus, attempting diuresis but with elevating creatinine (2) Cirrhosis of liver Code(s): K74.60 - UNSPECIFIED CIRRHOSIS OF LIVER Status: Chronic Qualifiers: Hepatic cirrhosis type: other cirrhosis Qualified Code(s): K74.69 - Other cirrhosis of liver Comment: likely due to hepatosteatosis (3) Diastolic CHF, acute on chronic Code(s): I50.33 - ACUTE ON CHRONIC DIASTOLIC (CONGESTIVE) HEART FAILURE Status : Acute (4) Acute kidney failure Status: Acute Comment: creatinine bumped up to 2, will need to halt IV diuresis (5) Hypokalemia Code(s): E87.6 - HYPOKALEMIA Status: Resolved Comment: double Spironolactone (6) Thrombocytopenia Code(s): D69.6 - THROMBOCYTOPENIA, UNSPECIFIED Status: Chronic (7) Anemia, normocytic normochromic Code(s): D64.9 - ANEMIA, UNSPECIFIED Status: Chronic (8) DM II (diabetes mellitus, type II), controlled Code(s): E11.9 - TYPE 2 DIABETES MELLITUS WITHOUT COMPLICATIONS Status: Chronic Comment: diet controlled (9) HTN (hypertension) Code(s): I10 - ESSENTIAL (PRIMARY) HYPERTENSION Status: Chronic Qualifiers: Hypertension type: essential hypertension Qualified Code(s): I10 - Essential (primary) hypertension Comment: (10) Obesity (BMI 30-39.9) Code(s): E66.9 - OBESITY, UNSPECIFIED Status: Chronic - Plan cont current plan of care, out of bed/ambulate Unable to diurese further due to rising creatinine -: Dr. De Leon following * . - Discharge Day Encounter end time: 11:40
--- NOTE | 2018-12-16 14:18 | PRG ---
DATE OF SERVICE: 12/16/2018 SUBJECTIVE: Ms. Dinh states she feels about the same. She has been on IV diuretic. She came in for worsening distention with associated abdominal pain. She weighed 223 yesterday when she came and 224 today. There was no real calculation of her ins and outs. She had been started on IV Lasix here. In talking with her, she notes that she has had more difficult time with fluid retention and anasarca. She felt more distended with more lower abdominal and lower extremity swelling. The swelling has moved up from her legs into her lower abdominal wall associated with some shortness of breath. No cough. No fever. No chills. Here in the hospital, she was treated with IV Lasix which had been changed to p.o. basically back to her home dosage. She had laboratory studies showing a creatinine of 2 today, it was 1.32 yesterday. She denies any nausea, vomiting, fever, or chills. As far as the etiology for liver disease is felt to be fatty liver. There was some concern about alcohol use somewhat by the pathologist on the biopsy. However, she has not been a heavy drinker of alcohol, and she is not drinking at all now. There were markers for autoimmune liver disease, which were positive with smooth muscle antibody of 37 and an JENNIE that was elevated. This is while in the office, but no overt autoimmune features were noted on biopsy. She has had hepatitis C antibody positive, but hep C RNA has been negative. PRESENT MEDICATIONS: She has been switched from Lasix IV 40 to 40 p.o. daily, spironolactone to 2 b.i.d. She is on some Pepcid as well. She is on a low carb diet. PHYSICAL EXAMINATION: VITAL SIGNS: Temperature 97, pulse 84, respirations are 14, blood pressure has been in the 90s/50s. In's and out's not recorded. Weight was 223 yesterday, 224 today. NECK: She has maybe some minimal JVD. LUNGS: Clear. HEART: Regular rate and rhythm. ABDOMEN: Notable for anasarca of the abdominal wall. EXTREMITIES: Edema in the legs. Anasarca in the hips. DIAGNOSTIC DATA: Chest x-ray shows an enlarged heart. LABORATORY DATA: White count 5.2, hemoglobin 8.6, MCV 81, platelets 83,000. INR was 1.6 on November 08. Sodium 131, potassium 4.8, BUN and creatinine are 19 and 2.01. Labs on admission; her bilirubin is 4.3, AST 43, ALT 14, protein 6.4, albumin 2.4, globulin is elevated at 4.4. ASSESSMENT: 1. Known cirrhosis, felt to be related to fatty liver. Liver biopsies were performed to rule out possible autoimmune hepatitis, although her liver enzymes were only mildly elevated and that turned out not too sure that on biopsy. We are going to go ahead and repeat those serologies with her elevated globulin gap. She has had issues with edema, but no ascites. 2. I think there is probably a component of heart failure contributing to this as she has gotten cardiomegaly on x-ray. She had elevated tricuspid regurgitation and right-sided heart pressures on previous exams, and her edema is way out of proportion to her liver function at this time. 3. Renal insufficiency with diuresis. Her renal functions worsened with basically a doubling of her creatinine. RECOMMENDATIONS: 1. Cardiology consultation to evaluate how much of this may be related to cardiac function. 2. Renal consultation with regard to doubling of creatinine. She is at risk for acute renal injury. 3. Hold all diuretics. 4. Start low-dose albumin. 5. We will recheck autoimmune markers for liver disease. 6. We will check an ultrasound of the abdomen and see if there is any tappable ascites. Her last imaging study on 11/08/2018 at this hospital with IV contrast showed portal venous hypertension, but that was stable with no overt tappable ascites. 7. We would start a 2 g sodium diet. Job ID: [id number]
[2018-12-16] MEDS ORDERED: Spironolactone 100 MG TAB PO SCH (17:00)
[2018-12-16 18:54] LABS: Creatinine, Urine 155.64 mg/dL (47-110); Sodium, Urine Less than 20 mmol/L (Not Available)
[2018-12-16] MEDS: Albumin 25% 25 GM/100 ML BOT IVPB SCH (20:39)
--- NOTE | 2018-12-16 21:01 | CON ---
DATE OF CONSULTATION: 12/16/2018 INDICATION FOR CONSULTATION: A 53-year-old female with history of diastolic dysfunction with abdominal discomfort and ascites with probable cirrhosis. HISTORY OF PRESENT ILLNESS: This very unfortunate 53-year-old female was seen back in June 2018 after she had abdominal discomfort. She is being admitted for now with probable cirrhosis and ascites. She did not undergo a paracentesis at that time after an ultrasound did not show no fluid. She was found to have on that admission, however, diastolic dysfunction, and she complained of some dyspnea, but mainly associated when she has abdominal discomfort and some edema. Since last Thursday, she notes she had increasing abdominal discomfort with some swelling and also had lower extremity edema. On Thursday, it became worse. On Thursday, she made an appointment to see her primary doctor. She actually saw her doctor on Thursday, was sent to the emergency room, was admitted from the emergency room. She has been treated with IV Lasix since being here, but did not see that she has had any significant urinary output. She is still remains positive on her I's and O's. She has been seen by Gastroenterology and there is a plan to undergo a repeat ultrasound and possible paracentesis. She has had some relief in her discomfort, however, and attributes this to having the diuretics, but I do not see that there is any significant negative output. She does have a history of hepatitis C, which was diagnosed last year, which may be the etiology of the cirrhosis. At this time, she denies any chest pain. PAST MEDICAL HISTORY: Significant for diabetes, probable cirrhosis, and hypertension. MEDICATIONS: Prior to admission, home medications include, 1. Lasix 60 mg b.i.d. 2. At present, she has been placed on Pepcid, Lasix, Aldactone, I believe she had one dose. I believe this have been discontinued as well as the Lasix. She has also been placed on insulin, sliding scale. ALLERGIES: SHE IS ALLERGIC TO ASPIRIN. SOCIAL HISTORY: There is no history of alcohol or tobacco abuse. She works as a [employer]. REVIEW OF SYSTEMS: She mainly complains of lower extremities edema, some dizziness, nausea, shortness of breath, and dyspnea on exertion. Otherwise, 12-point review of systems unremarkable. FAMILY HISTORY: Noncontributory. PHYSICAL EXAMINATION: GENERAL: A well-developed, well-nourished female, who is in no acute distress. VITAL SIGNS: She is afebrile. Heart rate is in the 80s and 90s and shows a normal sinus rhythm. Blood pressure is 94/67, then repeated was 95/54, O2 saturation is 90%, respiratory rate 12 to 14 breaths per minute. HEENT: Head to be normocephalic and atraumatic. Carotid pulses present. There were no bruits. No JVD. Thyroid is not enlarged. Oral mucosa appears to be pink and moist. CHEST: Clear to auscultation. Did not any rales, rhonchi, or wheezing. CARDIOVASCULAR: Regular rate and rhythm. She has a soft systolic murmur at the apex, 2/6 systolic murmur compatible with mitral valve regurgitation. There were no heaves or thrills or bruits noted. Otherwise, abdominal exam is obese. She does have positive bowel sounds. She does have tenderness in the lower quadrants and some fullness. EXTREMITIES: 1+ lower extremity edema. Pedal pulses are present. NEUROLOGIC: She appears to be fully intact. SKIN: Warm and dry. LABORATORY DATA: WBC of 5.2, hemoglobin is 8.6 with hematocrit 30.7, and a platelet count of 83,000. Blood sugar is 109, potassium is 4.8, sodium is 131, creatinine is 2.01. On admission, her potassium was 2.8, with a creatinine was 1.1 and creatinine has increased up to 2.01 today. EKG shows a sinus rhythm. IMPRESSION: 1. Possible ascites associated with cirrhosis due to hepatitis C. 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 2. History of diastolic dysfunction with normal ejection fraction. At this time , I would agree with the present management. Her BNP was elevated at 752. Cardiac enzymes are negative. Diuretics would be advisable if she is able to tolerate it; however, her renal function appears to be worsening. We will await the results of the echocardiogram to see if there have been any changes. Her last echocardiogram showed a normal ejection fraction with diastolic dysfunction. If an echo has not been ordered, we will repeat the echocardiogram to see if anything has changed. 3. Diabetes. This will be dealt with by the primary care service also. Job ID: [id number] [facility]
--- NOTE | 2018-12-16 21:59 | CON ---
DATE OF CONSULTATION: SUBJECTIVE: Ms. Dinh is a 53-year-old female with known history of cirrhosis secondary to steatohepatitis, and admitted for progressive anasarca. She has been treated with diuretics. During the last few days, her renal function has been worsening, hence the renal consultation. For the moment diuretics has been placed on hold. According to the patient, she has been referred to [place] for liver transplant evaluation. REVIEW OF SYSTEMS: No chest pain. Positive for abdominal fullness. Positive for chronic leg edema. Mild shortness of breath on exertion. No syncopal episode. No productive cough. No fever or chills. No headache. No diplopia. No nausea. No vomiting. No diarrhea. No constipation. No productive cough. No fever or chills. PAST MEDICAL HISTORY: 1. Cirrhosis-secondary to steatohepatitis. 2. Anasarca. 3. Pancytopenia. 4. Portal hypertension. 5. Diastolic dysfunction. 6. Type 2 diabetes mellitus, controlled by diet. 7. Morbid obesity. 8. Hypertension. PAST SURGICAL HISTORY: Status post liver biopsy. Status post cuffed hemodialysis. Status post upper and lower GI endoscopy. SOCIAL HISTORY: The patient lives in [place], , 3 children. No smoking. No alcohol. Education 9th grade. She is a [employer] with [employer]. No drug abuse. FAMILY HISTORY: Positive family history of ESRD. One brother on dialysis. ALLERGIES: ASPIRIN. TRAUMA: None. IMMUNIZATION: Up-to-date. HOSPITALIZATIONS: Please see past medical history. PHYSICAL EXAMINATION: VITAL SIGNS: Blood pressure 108/56, heart rate 68, respiratory rate 18, temperature 97.8, and pulse ox 97 percent. GENERAL: Awake, alert, supine, comfortable, not in distress, morbidly obese. SKIN: Adequate turgor. HEENT: She has slightly pale conjunctivae. Anicteric sclerae. No neck mass. No carotid bruits. No JVD. CHEST: No deformities. LUNGS: Decreased breath sounds. No wheezing. HEART: Normal sinus rhythm. No murmur. No gallops. No rubs. ABDOMEN: Globular, soft, nontender. No masses. Positive for ascites. EXTREMITIES: Trace edema. NEUROLOGIC: Moving all extremities. No tremors or asterixis. No ataxia. MEDICATIONS: Medications of December 16, 2018, showed the followin. [place] 5/325 q.6h p.r.n. 2. Pepcid 20 mg b.i.d. 3. Humalog sliding scale. 4. Zofran 4 mg q.6h p.r.n. 5. Furosemide on hold. IMAGING: December 14, 2018, chest x-ray showed no florid pulmonary edema. ASSESSMENT AND PLAN: 1. Acute kidney injury - consider hemodynamically-mediated renal dysfunction secondary to the recent diuretic regimen. The plan is to hold off diuretics for the moment, which has already been done. Start albumin infusion 25 g IV q.6h for the next 3 days. If no improvement, we will do crystalloid fluid challenge with this patient. We will recheck basic metabolic panel, CBC in a.m., urine chemistries will also be reviewed. If needed, we can pursue renal ultrasound, if no improvement with the renal function. 2. Cirrhosis/anasarca. Supportive care. Gastroenterology following. The patient has been referred to [place] for possible liver transplant. Job ID: [id number]
[2018-12-17] MEDS: Albumin 25% 25 GM/100 ML BOT IVPB SCH ×4 (02:47→20:04)
[2018-12-17 06:11] LABS: Hemoglobin 8.1 g/dL (12.0-16.0); Mean Corpuscular HGB CONC 29.3 g/dL (32.0-36.0); Mean Corpuscular Hemoglobin 23.3 pg (27.0-31.0); Mean Corpuscular Volume 79.5 fL (78.0-98.0); RBC Distribution Width 21.3 % (11.5-14.5); Red Blood Cell (RBC) Count 3.47 mill/uL (4.20-5.40); White Blood Cell (WBC) Count 3.3 thou/uL (4.8-10.8)
[2018-12-17 06:29] LABS: Anion Gap 16 mmol/L (10-20); BUN (Urea Nitrogen) 24 mg/dL (9.8-20.1); Calc. Creatinine Clearance 40 mL/min (70-130); Calcium 9.1 mg/dL (7.8-10.44); Carbon Dioxide 16 mmol/L (22-29); Chloride 101 mmol/L (98-107); Estimated GFR-MDRD 18; Glucose 96 mg/dL (70-105); Potassium 5.1 mmol/L (3.5-5.1); Sodium 128 mmol/L (136-145)
[2018-12-17 06:52] LABS: Platelet Count 67 thou/uL (130-400)
[2018-12-17 06:53] LABS: Mean Platelet Volume 7.9 fL (7.4-10.4)
[2018-12-17 07:01] LABS: Band 2 % (5-11); Eosinophils 5 % (0-10); Hypochromia SLIGHT = 6-15 cells (100X) (0-5/hpf); Lymphocytes 21 % (21-51); MDiff Complete? YES; Metamyelocyte 1 % (0-0); Monocytes 14 % (0-10); Neutrophil 57 % (42-75); Platelet Morphology Comment Appears Decreased
[2018-12-17] MEDS ORDERED: Furosemide 40 MG TAB PO SCH (07:30)
[2018-12-17] MEDS ORDERED: Sodium Chloride 0.9% 1,000 ML IV SCH (09:00)
--- NOTE | 2018-12-17 09:12 | PRG ---
DATE OF SERVICE: 12/17/2018 SUBJECTIVE: Ms. Dinh is a 53-year-old female, who was seen by the Renal Service for her acute kidney injury. Please note, she has underlying cirrhosis. She was started on albumin infusion, diuretics has been placed on hold. Review of her urinalysis suggests she may simply be having a hemodynamically-mediated renal dysfunction. In addition, her urine sodium is less than 20. My plan is to start her with some normal saline. No other complaints. No chest pain or shortness of breath. No nausea. No vomiting. OBJECTIVE: VITAL SIGNS: Blood pressure 102/62, heart rate 82, respiratory rate 20, temperature 97, and pulse ox 90%. GENERAL: Noted to be awake, alert, supine, comfortable, obese, not in distress. SKIN: Adequate turgor. HEENT: She has a pinkish conjunctiva. Anicteric sclerae. No neck mass. No carotid bruits. No JVD. CHEST: No deformities. LUNGS: Clear breath sounds. No wheezing. No crackles. HEART: Normal sinus rhythm. No murmur. No gallops. No rubs. ABDOMEN: Globular, soft, nontender. No masses. EXTREMITIES: + edema. No deformities. MEDICATIONS: Medications of December 17, 2018 reviewed. LABORATORY DATA: Laboratories of December 17, 2018; sodium 128, potassium 5.1, chloride 101, carbon dioxide 16, BUN 24, creatinine 2.72, GFR 16 mL/minute, glucose 96, calcium 9.1. Urine sodium less than 20. ASSESSMENT AND PLAN: 1. Acute kidney injury, consider hemodynamically mediated renal dysfunction. Continue IV hydration. We will add normal saline and run at 125 mL/hour. Hold off diuretics. No indication for any dialytic intervention. 2. Cirrhosis, supportive care. GI following. We will recheck basic metabolic and CBC in the a.m. Job ID: [id number] [facility]
[2018-12-17] MEDS: Famotidine 20 MG TAB PO SCH ×2 (11:53→20:05)
--- NOTE | 2018-12-17 12:37 | PDOC.PN ---
- Subjective Encounter Start Date: 12/17/18 (f/u leg swelling) Encounter Start Time: 12:36 Subjective: pt c/o feeling worse today = more swelling, leg pain -: abd swelling and nausea with standing - Objective Resuscitation Status - Order Detail: 12/14/18 20:37 Resuscitation Status Routine Resuscitation Status: DNAR: NO Resuscitation Discussed with: Patient Vital Signs & Weight: Vital Signs (12 hours) Temp Pulse Resp BP Pulse Ox 12/17/18 08:00 97 F L 82 20 102/62 90 L 12/17/18 04:00 97.1 F L 85 19 107/62 92 L 12/17/18 03:18 93 L Weight Admit Weight 224 lb 12.8 oz Weight 232 lb I&O: 12/16/18 12/17/18 12/18/18 06:59 06:59 06:59 Intake Total 368 Balance 368 Result Diagrams: 12/17/18 05:00 12/17/18 05:00 Additional Labs: Accuchecks 12/17/18 12/16/18 12/16/18 05:09 20:23 17:06 POC Glucose 107 135 H 121 H EKG Reviewed by me: Yes (tele - sinus 70's) Phys Exam - Physical Examination Constitutional: NAD HEENT: sclera anicteric Respiratory: no wheezing, no rales, no rhonchi Cardiovascular: RRR, no significant murmur abd wall edema inferior to the umbilicus significant edema in LE Psychiatric: normal affect Dx/Plan (1) Anasarca Code(s): R60.1 - GENERALIZED EDEMA Status: Acute (2) Diastolic CHF, acute on chronic Code(s): I50.33 - ACUTE ON CHRONIC DIASTOLIC (CONGESTIVE) HEART FAILURE Status : Acute (3) Cirrhosis of liver Code(s): K74.60 - UNSPECIFIED CIRRHOSIS OF LIVER Status: Chronic Qualifiers: Hepatic cirrhosis type: other cirrhosis Qualified Code(s): K74.69 - Other cirrhosis of liver (4) Acute kidney failure Status: Acute (5) Anemia, normocytic normochromic Code(s): D64.9 - ANEMIA, UNSPECIFIED Status: Chronic (6) DM II (diabetes mellitus, type II), controlled Code(s): E11.9 - TYPE 2 DIABETES MELLITUS WITHOUT COMPLICATIONS Status: Chronic (7) Obesity (BMI 30-39.9) Code(s): E66.9 - OBESITY, UNSPECIFIED Status: Chronic (8) Thrombocytopenia Code(s): D69.6 - THROMBOCYTOPENIA, UNSPECIFIED Status: Chronic - Plan * Pt with worsening edema and renal function - discussed with Dr. Lanza - continue albumin, d/c IVF and start high dose lasix to try and mobilize the 3rd spaced fluid. 80 mg IV Q12h * * No palpable pulse and unable to hear by doppler - stat ultrasound. While in bed - color normal of legs, only noted to be swollen * * DM well controlled. * * dvt prophy - not tolerated due to thrombocytopenia and leg edema * gi prophy - not indicated * code status DNR * * reviewed plan of care with patient/nurse, no questions or further needs at end of eval.
[2018-12-17] MEDS: Furosemide 100 MG/10 ML VIAL SLOW IVP SCH (13:43)
--- NOTE | 2018-12-17 14:55 | ULT ---
BILATERAL LOWER EXTREMITY ARTERIAL DOPPLER: DATE: 12/17/2018. PROVIDED CLINICAL HISTORY: Unable to detect pulses. FINDINGS: Mas scale and color Doppler sonography with spectral analysis was performed of the bilateral common femoral, profunda femoral, superficial femoral, popliteal, anterior tibial, posterior tibial, and sayra salis pedis arteries. Triphasic waveforms are seen involving the common femoral, pleural fluid, and superficial femoral arteries bilaterally. Biphasic waveforms are seen on the left from the popliteal through dorsalis pedis arteries. Triphasic flow is seen involving the right popliteal artery. Trip hasic waveform is seen involving dorsalis pedis artery and monophasic flow within the right posterior tibial artery. There is asymmetrically diminished flow within the posterior tibial artery on the ri ght. IMPRESSION: Monophasic flow in the right posterior tibial artery with associated diminished velocity suggests a f ocal stenosis. POS: DANAE
[2018-12-17 15:33] LABS: ANA Symphony (Qualitative) Negative (Negative); ANA Symphony (Quantitative) 0.3 Ratio (< 0.7 Negative); dsDNA IgG Antibody Less than 0.5 IU/mL (<10 Negative)
[2018-12-17] MEDS: Midodrine HCl 5 MG TAB PO SCH (20:04)
[2018-12-18] MEDS: Furosemide 100 MG/10 ML VIAL SLOW IVP SCH (01:43)
[2018-12-18] MEDS ORDERED: Furosemide 100 MG/10 ML VIAL SLOW IVP SCH (06:00)
[2018-12-18 06:21] LABS: ALT (SGPT) 22 U/L (8-55); AST (SGOT) 74 U/L (5-34); Albumin 3.3 g/dL (3.5-5.0); Alkaline Phosphatase 60 U/L (40-150); Anion Gap 18 mmol/L (10-20); BUN (Urea Nitrogen) 29 mg/dL (9.8-20.1); Bilirubin, Total 6.9 mg/dL (0.2-1.2); Calc. Creatinine Clearance 38 mL/min (70-130); Carbon Dioxide 17 mmol/L (22-29); Chloride 101 mmol/L (98-107); Estimated GFR-MDRD 18; Globulin 3.6 g/dL (2.4-3.5); Glucose 122 mg/dL (70-105); Potassium 3.9 mmol/L (3.5-5.1); Protein, Total 6.9 g/dL (6.0-8.3); Sodium 132 mmol/L (136-145)
[2018-12-18 06:27] LABS: Band 8 % (5-11); Hemoglobin 8.2 g/dL (12.0-16.0); Hypochromia SLIGHT = 6-15 cells (100X) (0-5/hpf); Lymphocytes 24 % (21-51); MDiff Complete? YES; Mean Corpuscular HGB CONC 29.3 g/dL (32.0-36.0); Mean Corpuscular Hemoglobin 23.4 pg (27.0-31.0); Mean Corpuscular Volume 79.9 fL (78.0-98.0); Monocytes 8 % (0-10); Neutrophil 60 % (42-75); Platelet Count 57 thou/uL (130-400); Platelet Morphology Comment Appears Decreased; Polychromasia SLIGHT = 2-3 cells (100X) (0-2/hpf); RBC Distribution Width 20.6 % (11.5-14.5); Red Blood Cell (RBC) Count 3.49 mill/uL (4.20-5.40); White Blood Cell (WBC) Count 2.7 thou/uL (4.8-10.8)
[2018-12-18] MEDS: Midodrine HCl 5 MG TAB PO SCH ×2 (08:28→20:56)
[2018-12-18] MEDS: Famotidine 20 MG TAB PO SCH ×2 (08:29→20:56)
[2018-12-18] MEDS ORDERED: Albumin 25% 25 GM/100 ML BOT IVPB ONE (11:20)
--- NOTE | 2018-12-18 12:12 | PRG ---
DATE OF SERVICE: 12/18/2018 SUBJECTIVE: Ms. Dinh is a 53-year-old female, admitted for generalized edema. She has underlying cirrhosis. She was started on IV diuretics initially, but renal function worsen. Diuretics was placed on hold. She was started on albumin infusion. However, yesterday her leg edema was noted to have worsened and for that reason, it was decided to restart IV Lasix at 80 mg IV q.12. In over 24 hours, the leg edema is much dramatically improved. My bias is to decrease the Lasix to 80 mg once a day. No complaints of chest pain or shortness of breath. OBJECTIVE: VITAL SIGNS: Blood pressure is 121/70, heart rate 78, respiratory rate 19, temperature 97.4, and pulse ox 96%. GENERAL: The patient is noted to be awake, alert, comfortable, not in distress. SKIN: Adequate turgor. HEENT: Pinkish conjunctivae. Slightly icteric conjunctivae. LUNGS: Clear breath sounds. No wheezing. No crackles. HEART: Normal sinus rhythm. No murmur. No gallops. No rubs. ABDOMEN: Globular, soft, and nontender. No masses. Trace edema. MEDICATIONS: Medications of December 18, 2018, reviewed. LABORATORY DATA: Laboratories of December 18, 2018; sodium 132, potassium 3.9, chloride 101, carbon dioxide 17, BUN 29, creatinine 2.82, glucose 122. AST 74, ALT 22, total bilirubin is 6.9, calcium 9.0, albumin 3.3. White count 2.7 and hemoglobin 8.2. ASSESSMENT AND PLAN: 1. Generalized edema - Lasix was restarted yesterday to 80 mg IV q.12 due to the worsening leg edema. Her leg edema is much improved this morning. My bias is to decrease her Lasix to 80 mg IV every day. In addition, I have restarted back on her albumin infusion 25 g IV q.6 hours for another 3 days. 2. Acute kidney injury - this is hemodynamically-mediated renal dysfunction. Continue supportive care. Continue judicious use of diuretics. There is no indication for any dialytic intervention. Job ID: [id number]
[2018-12-18] MEDS: Albumin 25% 25 GM/100 ML BOT IVPB SCH ×2 (13:05→17:38)
[2018-12-18] MEDS: HYDROcodone/Acetaminophen 5/325 mg Tablet PO PRN ×2 (15:34→21:07)
--- NOTE | 2018-12-18 15:37 | PRG ---
DATE OF SERVICE: 12/18/2018 SUBJECTIVE: Ms. Dinh has had some lower abdominal pain today. This has been associated with some increase in abdominal distention. She has had no nausea or vomiting. OBJECTIVE: VITAL SIGNS: Temperature is 96.4, pulse 68, blood pressure 108/52. GENERAL: She is in no acute distress. Alert and oriented x3. HEENT: Eyes have no scleral icterus. Oropharynx is clear without lesions. LUNGS: Clear to auscultation bilaterally. HEART: Regular rate and rhythm without murmur. ABDOMEN: Distended. Bowel sounds are present. EXTREMITIES: 2+ pitting lower extremity edema. LABORATORY DATA: White blood cell count 2.7, hemoglobin 8.2, platelets 57. Creatinine 2.82. Albumin 3.3. IMPRESSION: 1. Cirrhosis of the liver, most likely secondary to fatty liver disease. 2. Anasarca. This is likely related to cirrhosis and heart failure. Her albumin is mildly decreased at 3.3. 3. Acute renal insufficiency. Her creatinine has bumped very slightly again today. RECOMMENDATIONS: 1. Dr. Lanza with Nephrology has restarted diuretics. 2. She is on albumin and midodrine to try to improve renal perfusion. 3. She did have ultrasound of the abdomen yesterday with the report still pending. There is no dictated report either. If significant ascites has developed, then we may need to send paracentesis for cell count and culture if the abdominal discomfort persists. Job ID: [id number]
--- NOTE | 2018-12-18 17:08 | PDOC.PN ---
- Subjective Encounter Start Date: 12/18/18 Encounter Start Time: 11:45 Subjective: c/o abd pain in the lower quadrants -: breathing better but still has sob - Objective Resuscitation Status - Order Detail: 12/14/18 20:37 Resuscitation Status Routine Resuscitation Status: DNAR: NO Resuscitation Discussed with: Patient DIPAK Reviewed: Yes Vital Signs & Weight: Vital Signs (12 hours) Temp Pulse Resp BP Pulse Ox 12/18/18 15:36 97.4 F L 73 20 110/56 L 94 L 12/18/18 12:00 96.4 F L 68 20 108/52 L 96 12/18/18 08:00 96.1 F L 80 20 113/59 L 96 Weight Admit Weight 224 lb 12.8 oz Weight 235 lb 8 oz I&O: 12/17/18 12/18/18 12/19/18 06:59 06:59 06:59 Intake Total 1910 Output Total 1375 Balance 535 Result Diagrams: 12/18/18 05:13 12/18/18 05:13 Additional Labs: Accuchecks 12/18/18 12/18/18 12/17/18 11:09 05:21 20:17 POC Glucose 122 H 136 H 134 H Phys Exam - Physical Examination HEENT: PERRLA, sclera anicteric Neck: supple, full ROM Respiratory: no wheezing, no rales Cardiovascular: RRR, no significant murmur Gastrointestinal: soft, positive bowel sounds distention++, tenderness lower abd, no rigidity or guarding Musculoskeletal: pulses present, edema present Neurological: non-focal, moves all 4 limbs Psychiatric: A&O x 3 Dx/Plan (1) Anasarca Code(s): R60.1 - GENERALIZED EDEMA Status: Acute (2) Acute kidney failure Status: Acute (3) Diastolic CHF, acute on chronic Code(s): I50.33 - ACUTE ON CHRONIC DIASTOLIC (CONGESTIVE) HEART FAILURE Status : Acute (4) Cirrhosis of liver Code(s): K74.60 - UNSPECIFIED CIRRHOSIS OF LIVER Status: Chronic Qualifiers: Hepatic cirrhosis type: other cirrhosis Qualified Code(s): K74.69 - Other cirrhosis of liver (5) Anemia, normocytic normochromic Code(s): D64.9 - ANEMIA, UNSPECIFIED Status: Chronic (6) DM II (diabetes mellitus, type II), controlled Code(s): E11.9 - TYPE 2 DIABETES MELLITUS WITHOUT COMPLICATIONS Status: Chronic Qualifiers: Diabetes mellitus terminal operator insulin use: without [place] use Diabetes mellitus complication status: with unspecified complications Qualified Code(s) : E11.8 - Type 2 diabetes mellitus with unspecified complications (7) HTN (hypertension) Code(s): I10 - ESSENTIAL (PRIMARY) HYPERTENSION Status: Chronic Qualifiers: Hypertension type: essential hypertension Qualified Code(s): I10 - Essential (primary) hypertension Comment: (8) Thrombocytopenia Code(s): D69.6 - THROMBOCYTOPENIA, UNSPECIFIED Status: Chronic (9) Obesity Code(s): E66.9 - OBESITY, UNSPECIFIED Status: Chronic Qualifiers: Obesity classification: adult class 3 (BMI >= 40) Serious obesity comorbidity presence: with serious comorbidity Body mass index: BMI 40.0-44.9 - Plan will start empiric ceftriaxone due to lower abd pain, ?sbp -: radiology for tapping asc fluid -: renal function is worsoning -: recieved alb infusions plus lasix, lasix is scaled back now -: on midodrine * . prognosis guarded. Mobilize as tolerated. Review of Systems - Medications/Allergies Allergies/Adverse Reactions: Allergies Allergy/AdvReac Type Severity Reaction Status Date / Time aspirin Allergy Unknown Nausea Verified 12/14/18 22:52 Medications: Current Medications Hydrocodone Bitart/Acetaminophen ([place] 5/325) 1 tab PO Q4H PRN PRN Reason: Moderate Pain (4-6) Last Admin: 12/18/18 15:34 Dose: 1 tab Albumin Human (Albumin 25%) 25 gm IVPB Q6HR [facility] Stop: 12/21/18 12:01 Last Admin: 12/18/18 13:05 Dose: 25 gm Dextrose/Water (Dextrose 50%) 25 gm SLOW IVP PRN PRN PRN Reason: Hypoglycemia Famotidine (Pepcid) 20 mg PO BID [facility] Last Admin: 12/18/18 08:29 Dose: 20 mg Furosemide (Lasix) 80 mg SLOW IVP DAILY [facility] Glucagon (Glucagon) 1 mg IM PRN PRN PRN Reason: Hypoglycemia Dextrose/Water (D5w) 1,000 mls @ 0 mls/hr IV .Q0M PRN PRN Reason: Hypoglycemia Insulin Human Lispro (Humalog) 0 units SC .MILD SLIDING SCALE PRN PRN Reason: Mild Correctional Scale Insulin Human Lispro (Humalog) 0 units SC .BEDTIME SLIDING SC PRN PRN Reason: Bedtime Correctional Scale Midodrine (Proamatine) 7.5 mg PO BID [facility] Last Admin: 12/18/18 08:28 Dose: 7.5 mg Ondansetron HCl (Zofran Odt) 4 mg PO Q6H PRN PRN Reason: Nausea/Vomiting Ondansetron HCl (Zofran) 4 mg IVP Q6H PRN PRN Reason: Nausea/Vomiting Last Admin: 12/15/18 17:22 Dose: 4 mg Senna/Docusate Sodium (Senokot S) 2 tab PO BID PRN PRN Reason: Constipation Sodium Chloride (Flush - Normal Saline) 10 ml IVF Q12HR [facility] Last Admin: 12/18/18 08:29 Dose: 10 ml Sodium Chloride (Flush - Normal Saline) 10 ml IVF PRN PRN PRN Reason: Saline Flush Last Admin: 12/17/18 02:47 Dose: 10 ml
[2018-12-18] MEDS ORDERED: cefTRIAXone\\ROCEPHIN 2 GM in Sodium Chloride 0.9% 100 ML IVPB SCH (17:30)
--- NOTE | 2018-12-18 19:51 | EKG ---
Test Reason : Blood Pressure : / mmHG Vent. Rate : 086 BPM Atrial Rate : 086 BPM P-R Int : 154 ms QRS Dur : 098 ms QT Int : 402 ms P-R-T Axes : 060 089 034 degrees QTc Int : 481 ms Normal sinus rhythm Incomplete right bundle branch block Nonspecific T wave abnormality Abnormal ECG Confirmed by MAHNAZ SAMAYOA DO ([id number]), video editor SHANKAR ELLIOTT ([id number] on 12/18/2018 7:50:52 PM Referred By: Confirmed By:MAHNAZ SAMAYOA DO
[2018-12-18] MEDS: cefTRIAXone\\ROCEPHIN 2 GM in Sodium Chloride 0.9% 100 ML IVPB SCH (20:56)
[2018-12-19] MEDS: Albumin 25% 25 GM/100 ML BOT IVPB SCH ×3 (00:39→13:11)
[2018-12-19] MEDS: Ondansetron PF 4 MG/2 ML Vial IVP PRN (01:03)
[2018-12-19 05:38] LABS: #Eosinphils 0.1 thou/uL (0.0-0.7); #Lymphocytes 0.3 thou/uL (1.20-3.40); #Monocytes 0.5 thou/uL (0.11-0.59); #Neutrophils 2.9 thou/uL (1.40-6.50); %Basophils 0.7 % (0.0-1.0); %Eosinophils 1.9 % (0.0-10.0); %Lymphocytes 8.6 % (21.0-51.0); %Monocytes 12.1 % (0.0-10.0); %Neutrophils 76.7 % (42.0-75.0); Hemoglobin 8.2 g/dL (12.0-16.0); Mean Corpuscular HGB CONC 29.8 g/dL (32.0-36.0); Mean Corpuscular Hemoglobin 23.7 pg (27.0-31.0); Mean Corpuscular Volume 79.5 fL (78.0-98.0); Mean Platelet Volume 6.7 fL (7.4-10.4); Platelet Count 55 thou/uL (130-400); RBC Distribution Width 20.9 % (11.5-14.5); Red Blood Cell (RBC) Count 3.46 mill/uL (4.20-5.40); White Blood Cell (WBC) Count 3.8 thou/uL (4.8-10.8)
[2018-12-19 05:54] LABS: Anion Gap 18 mmol/L (10-20); BUN (Urea Nitrogen) 30 mg/dL (9.8-20.1); Calc. Creatinine Clearance 40 mL/min (70-130); Calcium 9.5 mg/dL (7.8-10.44); Carbon Dioxide 16 mmol/L (22-29); Chloride 102 mmol/L (98-107); Estimated GFR-MDRD 18; Glucose 100 mg/dL (70-105); Potassium 4.2 mmol/L (3.5-5.1); Sodium 132 mmol/L (136-145)
[2018-12-19] MEDS: Midodrine HCl 5 MG TAB PO SCH ×2 (08:11→21:03)
[2018-12-19] MEDS: Furosemide 100 MG/10 ML VIAL SLOW IVP SCH (08:12)
[2018-12-19] MEDS: Famotidine 20 MG TAB PO SCH ×2 (08:13→21:04)
--- NOTE | 2018-12-19 10:46 | PRG ---
DATE OF SERVICE: 12/19/2018 SUBJECTIVE: Ms. Dinh is a 53-year-old female with known history of cirrhosis and anasarca and was seen by the Renal Service for her acute kidney injury. At that time, we adjusted her diuretic. She was also given some albumin infusion. Furthermore, the patient had to be restarted back on her Lasix due to the worsening leg edema. IV Lasix was restarted at 80 mg IV q.12, and I adjusted to once a day dosing. Her leg edema is much improved. No complaints of chest pain or shortness of breath. OBJECTIVE: VITAL SIGNS: Blood pressure is 120/72, heart rate 80, respiratory rate 18, temperature 96.2, pulse ox 92%. GENERAL: Awake, alert, supine, comfortable, obese, not in distress. SKIN: Adequate turgor. HEENT: Slightly pale conjunctivae. Anicteric sclerae. NECK: No neck mass. No carotid bruits. No JVD. CHEST: No deformities. LUNGS: Clear breath sounds. No wheezing. No crackles. HEART: Normal sinus rhythm. No murmur. No gallops. No rubs. ABDOMEN: Globular, soft, nontender. No masses. EXTREMITIES: Trace edema. MEDICATIONS: Medications of December 19, 2018, have been reviewed. LABORATORY DATA: Laboratories of December 19, 2018; sodium 132, potassium 4.2, chloride 102, carbon dioxide 16, BUN 30, creatinine 2.71, glucose 100, calcium 9.5. On December 18, 2018, creatinine 2.82. On December 17, 2018, creatinine 2.72. White count 3.8, hemoglobin 8.2. ASSESSMENT AND PLAN: 1. Acute kidney injury - consider hemodynamically-mediated renal dysfunction. Continue to adjust diuretics. Continue the albumin at 25 g IV q.6 hours. Renal function is stable and has plateaued in the last 2 days. No indication for any dialytic intervention. 2. Anasarca, on judicious use of diuretics. 3. Anemia, stable, p.r.n. blood transfusion. 4. Cirrhosis - GI is following up the patient. Continue supportive care. Recheck basic metabolic panel and CBC in a.m. Job ID: [id number]
--- NOTE | 2018-12-19 11:17 | PDOC.PN ---
- Subjective Encounter Start Date: 12/19/18 Encounter Start Time: 10:30 Subjective: has lower abd pain, no nausea or sob now - Objective Resuscitation Status - Order Detail: 12/14/18 20:37 Resuscitation Status Routine Resuscitation Status: DNAR: NO Resuscitation Discussed with: Patient DIPAK Reviewed: Yes Vital Signs & Weight: Vital Signs (12 hours) Temp Pulse Resp BP Pulse Ox 12/19/18 08:32 96.2 F L 80 18 120/72 92 L 12/19/18 03:50 97.3 F L 78 20 103/58 L 91 L Weight Admit Weight 224 lb 12.8 oz Weight 227 lb I&O: 12/18/18 12/19/18 12/20/18 06:59 06:59 06:59 Intake Total 1910 680 Output Total 1375 Balance 535 680 Result Diagrams: 12/19/18 05:05 12/19/18 05:05 Additional Labs: Accuchecks 12/19/18 12/19/18 12/18/18 10:37 05:21 20:49 POC Glucose 122 H 110 121 H 12/18/18 12/18/18 17:00 11:09 POC Glucose 109 122 H Phys Exam - Physical Examination HEENT: PERRLA, moist MMs Neck: no JVD, supple Respiratory: no wheezing, no rales Cardiovascular: RRR, no significant murmur Gastrointestinal: soft, positive bowel sounds has sub cut edema in lower abd with tenderness, no rigidity or guarding Musculoskeletal: pulses present, edema present Neurological: non-focal, moves all 4 limbs Psychiatric: normal affect, A&O x 3 Dx/Plan (1) Anasarca Code(s): R60.1 - GENERALIZED EDEMA Status: Acute (2) Acute kidney failure Status: Acute (3) Diastolic CHF, acute on chronic Code(s): I50.33 - ACUTE ON CHRONIC DIASTOLIC (CONGESTIVE) HEART FAILURE Status : Acute (4) Cirrhosis of liver Code(s): K74.60 - UNSPECIFIED CIRRHOSIS OF LIVER Status: Chronic Qualifiers: Hepatic cirrhosis type: other cirrhosis Qualified Code(s): K74.69 - Other cirrhosis of liver (5) Anemia, normocytic normochromic Code(s): D64.9 - ANEMIA, UNSPECIFIED Status: Chronic (6) DM II (diabetes mellitus, type II), controlled Code(s): E11.9 - TYPE 2 DIABETES MELLITUS WITHOUT COMPLICATIONS Status: Chronic Qualifiers: Diabetes mellitus intermediate manager insulin use: without chcf use Diabetes mellitus complication status: with unspecified complications Qualified Code(s) : E11.8 - Type 2 diabetes mellitus with unspecified complications (7) HTN (hypertension) Code(s): I10 - ESSENTIAL (PRIMARY) HYPERTENSION Status: Chronic Qualifiers: Hypertension type: essential hypertension Qualified Code(s): I10 - Essential (primary) hypertension Comment: (8) Thrombocytopenia Code(s): D69.6 - THROMBOCYTOPENIA, UNSPECIFIED Status: Chronic (9) Obesity Code(s): E66.9 - OBESITY, UNSPECIFIED Status: Chronic Qualifiers: Obesity classification: adult class 3 (BMI >= 40) Serious obesity comorbidity presence: with serious comorbidity Body mass index: BMI 40.0-44.9 - Plan likely has pannuculitis with abd wall edema in the lower quadrants -: will check ct abd results -: no ascites on usg, d/w -: continue ceftriaxone and midodrine for now -: renal function is holding up, still has lot of edema * . letha hose to lower extremities mobilize, to amb as tolerated is getting more alb infusions by nephrology on lasix 80mg iv daily Prognosis guarded, is DNAR. Will consult palliative care if not done so already. ?repeat liver biopsy, previous sample was small with no sign of autoimmune disease has +ve antismooth muscle ab, elevated IgG. Review of Systems - Medications/Allergies Allergies/Adverse Reactions: Allergies Allergy/AdvReac Type Severity Reaction Status Date / Time aspirin Allergy Unknown Nausea Verified 12/14/18 22:52 Medications: Current Medications Hydrocodone Bitart/Acetaminophen ([place] 5/325) 1 tab PO Q4H PRN PRN Reason: Moderate Pain (4-6) Last Admin: 12/18/18 21:07 Dose: 1 tab Albumin Human (Albumin 25%) 25 gm IVPB Q6HR [facility] Stop: 12/21/18 12:01 Last Admin: 12/19/18 06:23 Dose: 25 gm Dextrose/Water (Dextrose 50%) 25 gm SLOW IVP PRN PRN PRN Reason: Hypoglycemia Famotidine (Pepcid) 20 mg PO BID [facility] Last Admin: 12/19/18 08:13 Dose: 20 mg Furosemide (Lasix) 80 mg SLOW IVP DAILY [facility] Last Admin: 12/19/18 08:12 Dose: 80 mg Glucagon (Glucagon) 1 mg IM PRN PRN PRN Reason: Hypoglycemia Dextrose/Water (D5w) 1,000 mls @ 0 mls/hr IV .Q0M PRN PRN Reason: Hypoglycemia Ceftriaxone Sodium 2 gm/ (Sodium Chloride) 100 mls @ 200 mls/hr IVPB [facility] Last Admin: 12/18/18 20:56 Dose: 100 mls Insulin Human Lispro (Humalog) 0 units SC .MILD SLIDING SCALE PRN PRN Reason: Mild Correctional Scale Insulin Human Lispro (Humalog) 0 units SC .BEDTIME SLIDING SC PRN PRN Reason: Bedtime Correctional Scale Midodrine (Proamatine) 7.5 mg PO BID [facility] Last Admin: 12/19/18 08:11 Dose: 7.5 mg Ondansetron HCl (Zofran Odt) 4 mg PO Q6H PRN PRN Reason: Nausea/Vomiting Last Admin: 12/18/18 18:20 Dose: 4 mg Ondansetron HCl (Zofran) 4 mg IVP Q6H PRN PRN Reason: Nausea/Vomiting Last Admin: 12/19/18 01:03 Dose: 4 mg Senna/Docusate Sodium (Senokot S) 2 tab PO BID PRN PRN Reason: Constipation Sodium Chloride (Flush - Normal Saline) 10 ml IVF Q12HR [facility] Last Admin: 12/19/18 08:13 Dose: 10 ml Sodium Chloride (Flush - Normal Saline) 10 ml IVF PRN PRN PRN Reason: Saline Flush Last Admin: 12/17/18 02:47 Dose: 10 ml
--- NOTE | 2018-12-19 13:49 | CT ---
CT ABDOMEN AND PELVIS WITHOUT CONTRAST: COMPARISON: 11/08/2018. HISTORY: Left lower quadrant abdominal pain. TECHNIQUE: Multiple contiguous axial images were obtained in a CT of the abdomen and pelvis without contrast. A small amount of p.o. contrast was administered. Coronal reformats were performed. FINDINGS: The liver is cirrhotic. There is a small amount of ascites. No focal liver lesions are appreciated. The gallbladder, kidneys, adrenal glands, spleen, and pancreas are unremarkable, although evaluatio n is limited without IV contrast. There appears to be a stable splenic artery aneurysm. Multiple va rices are seen adjacent to the spleen. The reproductive organs are unremarkable. The large and small bowel are unremarkable. Degenerative changes are seen in the spine. There are small bilateral pleural effusions. Diffuse so ft tissue anasarca is seen. IMPRESSION: 1. Cirrhosis and ascites. 2. Small bilateral pleural effusions. POS: [facility]
--- NOTE | 2018-12-19 14:39 | PRG ---
DATE OF SERVICE: 12/19/2018 SUBJECTIVE: Ms. Dinh had multiple episodes of vomiting this morning. She has had one small formed bowel movement this morning. She is feeling a little better this afternoon. OBJECTIVE: VITAL SIGNS: Temperature 96.2, pulse 80, and blood pressure 120/72. GENERAL: She is in no acute distress. She is alert and oriented x3. LUNGS: Clear to auscultation bilaterally. HEART: Regular rate and rhythm. ABDOMEN: Distended; however, CT scan last night just showed a small amount of ascites. She has a lot of abdominal wall edema and obesity. The lower abdominal wall appears somewhat indurated. She is tender throughout. EXTREMITIES: 2+ pitting lower extremity edema. LABORATORY DATA: Creatinine 2.71. White blood cell count 3.8 and hemoglobin 8.2. IMPRESSION: 1. Decompensated cirrhosis, most likely secondary to fatty liver disease. Certainly, she could have autoimmune hepatitis as well given the elevated effect in antibody, enlarged liver, and elevated IgG; however, she only has mildly elevated transaminases and steroids would not be appropriate at this point. Liver biopsy would not be expected to change lead currently. Previous liver biopsy did not show obvious changes of autoimmune hepatitis; however, sample was small. 2. Anasarca and ascites. Likely a combination of cirrhosis and heart failure. She is receiving furosemide 80 mg IV daily. We are trying to balance this with renal perfusion and she is also receiving midodrine and did previously receive albumin. 3. Induration of the abdominal wall. She has been started on ceftriaxone by the primary service for that. She does not have a large volume ascites and SBP would not be expected with that; however, it is still possible. As well, she is also being covered with the ceftriaxone empirically for that. 4. Acute renal failure. RECOMMENDATIONS: 1. Continue midodrine. 2. Judicious use of diarrhea. 3. She is on ceftriaxone. 4. Dr. Thompson will be back tomorrow. Job ID: [id number]
[2018-12-19] MEDS: HYDROcodone/Acetaminophen 5/325 mg Tablet PO PRN (21:03)
[2018-12-19] MEDS: cefTRIAXone\\ROCEPHIN 2 GM in Sodium Chloride 0.9% 100 ML IVPB SCH (21:04)
--- NOTE | 2018-12-20 02:24 | PRG ---
DATE OF SERVICE: 12/17/2018 SUBJECTIVE: Ms. Dinh has had worsening of swelling. She was seen by Dr. Lanza and Dr. Valentino yesterday. She was started on albumin and Lasix. He started her on IV fluids last night. She was started on 2 g sodium diet last night. Hemoglobin is 8.1 today. Her creatinine is up at 2.72. She denies any fever or chills. She denies any shortness of breath except when she tries to move around, then she becomes quite short of breath. OBJECTIVE: VITAL SIGNS: Her temperature is 97, pulse 22, blood pressure 103/62. She was 223 on , 224 on the , and 232 today. GENERAL: She has no overt JVD. LUNGS: Decreased breath sounds at bases, but no rales or rhonchi. HEART: Regular rate and rhythm. ABDOMEN: Soft, slightly protuberant, but nontender. There is no rebound. There is no guarding. EXTREMITIES: Reveal edema and anasarca up to the top of the buttocks and on to the abdominal wall. LABORATORY DATA: White count 3.3, hemoglobin 8.1, platelet count 67,000. INR on 08 November was 1.3. Sodium 128, potassium 5.1. BUN and creatinine of 24 and 2.72, up from 2 yesterday, 1.32 the day before, and 1.1 the day before that. Her baseline in the past years run about 0.8. Albumin on the was 2.4, protein 6.8, IgM was 2567. Smooth muscle antibody of 37. Ultrasound of lower extremities reveal no DVTs. Pelvic CT one month ago showed no ascites. I thought she had an ultrasound on this admission that did not really show any ascites, but I do not see that in the chart at this time. ASSESSMENT: 1. Cirrhosis of unclear etiology, probably more fatty liver. She has had a hepatitis C antibody positive in the past, has a negative hepatitis C RNA. She has no hepatitis C at this time. 2. Heart failure, diastolic dysfunction. There were a little bit of increased right-sided pressures on her previous echo. There was discussion about that being repeated, but it has not been done yet. 3. Rapidly deteriorating renal function with creatinine going from 1.09 to 2.72 since the 17 of November. On this admission, she was 1.1, now is 2.72. RECOMMENDATIONS: 1. Agree with colloid resuscitation. 2. We will get an ultrasound of her abdomen to see if there is any tappable fluid and if so, ask Radiology to tap her. 3. It may be helpful to re-evaluate her cardiac function. I am not sure if anything would be able to be done if anything would be able to be done to improve it if it had worsened. We will go ahead and put her on some midodrine and get her systolic pressure up to that will help some perfusion if that is okay with Cardiology. Job ID: [id number]
[2018-12-20 06:11] LABS: Anisocytosis SLIGHT = 6-15 cells (100X) (0-5/hpf); Hemoglobin 8.7 g/dL (12.0-16.0); Hypochromia SLIGHT = 6-15 cells (100X) (0-5/hpf); Lymphocytes 14 % (21-51); MDiff Complete? YES; Mean Corpuscular HGB CONC 29.5 g/dL (32.0-36.0); Mean Corpuscular Hemoglobin 23.7 pg (27.0-31.0); Mean Corpuscular Volume 80.4 fL (78.0-98.0); Monocytes 10 % (0-10); Neutrophil 76 % (42-75); Nucleated RBC 1 % (0); Platelet Count 57 thou/uL (130-400); Platelet Morphology Comment Appears Decreased; Polychromasia SLIGHT = 2-3 cells (100X) (0-2/hpf); RBC Distribution Width 20.9 % (11.5-14.5); Red Blood Cell (RBC) Count 3.67 mill/uL (4.20-5.40); White Blood Cell (WBC) Count 3.4 thou/uL (4.8-10.8)
[2018-12-20 06:26] LABS: Anion Gap 17 mmol/L (10-20); BUN (Urea Nitrogen) 32 mg/dL (9.8-20.1); Calc. Creatinine Clearance 38 mL/min (70-130); Calcium 9.5 mg/dL (7.8-10.44); Carbon Dioxide 17 mmol/L (22-29); Chloride 101 mmol/L (98-107); Estimated GFR-MDRD 17; Glucose 93 mg/dL (70-105); Potassium 3.5 mmol/L (3.5-5.1); Sodium 131 mmol/L (136-145)
[2018-12-20] MEDS: Furosemide 100 MG/10 ML VIAL SLOW IVP SCH (08:45)
[2018-12-20] MEDS: Famotidine 20 MG TAB PO SCH ×2 (08:46→20:20)
[2018-12-20] MEDS: Midodrine HCl 5 MG TAB PO SCH ×2 (08:46→20:18)
[2018-12-20] MEDS ORDERED: Albumin 25% 25 GM/100 ML BOT IVPB SCH (08:57)
--- NOTE | 2018-12-20 09:11 | PRG ---
DATE OF SERVICE: 12/20/2018 SUBJECTIVE: Ms. Dinh is a 53-year-old female, who was admitted for anasarca. She has a history of cirrhosis. She also had an acute kidney injury that I felt was hemodynamically mediated renal dysfunction. There is some stabilization of renal function. She is being given albumin infusion. Her Lasix has also been adjusted from b.i.d. to once a day 80 mg. No other complaints today. She tells me she is feeling better. She feels less bloated. OBJECTIVE: VITAL SIGNS: Blood pressure 119/65, heart rate 77, respiratory rate 18, temperature 97.8, and pulse ox 95%. GENERAL: Awake, alert, comfortable, not in distress. SKIN: Adequate turgor. HEENT: Pinkish conjunctivae. Anicteric sclerae. No neck mass. No JVD. LUNGS: Clear breath sounds. No wheezing. HEART: Normal sinus rhythm. No murmur. No gallops. No rubs. ABDOMEN: Globular, soft. Minimal ascites. EXTREMITIES: Trace edema. MEDICATIONS: Medications of 12/20/2018, reviewed. LABORATORY DATA: Of 12/20/2018; sodium 131, potassium 3.5, chloride 101, carbon dioxide 17, BUN 32, creatinine 2.83, glucose 93, calcium 9.5. ASSESSMENT AND PLAN: 1. Acute kidney injury-hemodynamically mediated renal dysfunction. There is some stabilization with the renal function. There is no indication for any dialysis with this patient. My plan is to decrease her Lasix from 80 mg IV daily to 40 mg IV daily. We can further adjust the Lasix depending on how her creatinine will be. 2. Anasarca-clinically much improved. 3. Cirrhosis, supportive care followed by GI. The patient has been referred for liver transplant evaluation to [place]. Overall, agree with current management. Job ID: [id number]
[2018-12-20] MEDS: Furosemide 40 MG/4 ML VIAL SLOW IVP SCH (10:19)
--- NOTE | 2018-12-20 10:35 | PDOC.PN ---
- Subjective Encounter Start Date: 12/20/18 Encounter Start Time: 10:00 Subjective: abd pain is better, no sob -: is minimally amb in room - Objective Resuscitation Status - Order Detail: 12/14/18 20:37 Resuscitation Status Routine Resuscitation Status: DNAR: NO Resuscitation Discussed with: Patient DIPAK Reviewed: Yes Vital Signs & Weight: Vital Signs (12 hours) Temp Pulse Resp BP Pulse Ox 12/20/18 08:00 97.8 F 77 18 119/65 95 12/20/18 03:15 97.6 F 78 20 106/69 96 Weight Admit Weight 224 lb 12.8 oz Weight 231 lb I&O: 12/19/18 12/20/18 12/21/18 06:59 06:59 06:59 Intake Total 680 500 Balance 680 500 Result Diagrams: 12/20/18 04:36 12/20/18 04:36 Additional Labs: Accuchecks 12/20/18 12/19/18 12/19/18 06:02 20:14 16:43 POC Glucose 90 118 H 102 12/19/18 10:37 POC Glucose 122 H Phys Exam - Physical Examination HEENT: PERRLA, moist MMs Neck: no JVD, supple Respiratory: no wheezing, no rales Cardiovascular: RRR, no significant murmur Gastrointestinal: soft, positive bowel sounds lower abd wall edema Musculoskeletal: pulses present, edema present Neurological: non-focal, moves all 4 limbs Psychiatric: normal affect, A&O x 3 Dx/Plan (1) Anasarca Code(s): R60.1 - GENERALIZED EDEMA Status: Acute (2) Acute kidney failure Status: Acute (3) Diastolic CHF, acute on chronic Code(s): I50.33 - ACUTE ON CHRONIC DIASTOLIC (CONGESTIVE) HEART FAILURE Status : Acute (4) Cirrhosis of liver Code(s): K74.60 - UNSPECIFIED CIRRHOSIS OF LIVER Status: Chronic Qualifiers: Hepatic cirrhosis type: other cirrhosis Qualified Code(s): K74.69 - Other cirrhosis of liver (5) Anemia, normocytic normochromic Code(s): D64.9 - ANEMIA, UNSPECIFIED Status: Chronic (6) DM II (diabetes mellitus, type II), controlled Code(s): E11.9 - TYPE 2 DIABETES MELLITUS WITHOUT COMPLICATIONS Status: Chronic Qualifiers: Diabetes mellitus penitentiary insulin use: without penitentiary use Diabetes mellitus complication status: with unspecified complications Qualified Code(s) : E11.8 - Type 2 diabetes mellitus with unspecified complications (7) HTN (hypertension) Code(s): I10 - ESSENTIAL (PRIMARY) HYPERTENSION Status: Chronic Qualifiers: Hypertension type: essential hypertension Qualified Code(s): I10 - Essential (primary) hypertension Comment: (8) Thrombocytopenia Code(s): D69.6 - THROMBOCYTOPENIA, UNSPECIFIED Status: Chronic (9) Obesity Code(s): E66.9 - OBESITY, UNSPECIFIED Status: Chronic Qualifiers: Obesity classification: adult class 3 (BMI >= 40) Serious obesity comorbidity presence: with serious comorbidity Body mass index: BMI 40.0-44.9 - Plan is on lasix 40mg iv daily -: got alb infusions -: has lower abd wall edema with tenderness, better now -: letha hose to lower extremity edema -: to amb as tolerated in hallway * . continue midodrine 7.5mg bid, ceftriaxone. prognosis guarded is on liver transplant list per 's note. Tx to med floor. Review of Systems - Medications/Allergies Allergies/Adverse Reactions: Allergies Allergy/AdvReac Type Severity Reaction Status Date / Time aspirin Allergy Unknown Nausea Verified 12/14/18 22:52 Medications: Current Medications Hydrocodone Bitart/Acetaminophen ([place] 5/325) 1 tab PO Q4H PRN PRN Reason: Moderate Pain (4-6) Last Admin: 12/19/18 21:03 Dose: 1 tab Albumin Human (Albumin 25%) 25 gm IVPB NOW [facility] Stop: 12/20/18 13:00 Last Admin: 12/20/18 10:24 Dose: 25 gm Dextrose/Water (Dextrose 50%) 25 gm SLOW IVP PRN PRN PRN Reason: Hypoglycemia Famotidine (Pepcid) 20 mg PO BID [facility] Last Admin: 12/20/18 08:46 Dose: 20 mg Furosemide (Lasix) 40 mg SLOW IVP DAILY [facility] Last Admin: 12/20/18 10:19 Dose: Not Given Glucagon (Glucagon) 1 mg IM PRN PRN PRN Reason: Hypoglycemia Dextrose/Water (D5w) 1,000 mls @ 0 mls/hr IV .Q0M PRN PRN Reason: Hypoglycemia Ceftriaxone Sodium 2 gm/ (Sodium Chloride) 100 mls @ 200 mls/hr IVPB 2100 [facility] Last Admin: 12/19/18 21:04 Dose: 100 mls Insulin Human Lispro (Humalog) 0 units SC .MILD SLIDING SCALE PRN PRN Reason: Mild Correctional Scale Insulin Human Lispro (Humalog) 0 units SC .BEDTIME SLIDING SC PRN PRN Reason: Bedtime Correctional Scale Midodrine (Proamatine) 7.5 mg PO BID [facility] Last Admin: 12/20/18 08:46 Dose: 7.5 mg Ondansetron HCl (Zofran Odt) 4 mg PO Q6H PRN PRN Reason: Nausea/Vomiting Last Admin: 12/18/18 18:20 Dose: 4 mg Ondansetron HCl (Zofran) 4 mg IVP Q6H PRN PRN Reason: Nausea/Vomiting Last Admin: 12/19/18 01:03 Dose: 4 mg Senna/Docusate Sodium (Senokot S) 2 tab PO BID PRN PRN Reason: Constipation Sodium Chloride (Flush - Normal Saline) 10 ml IVF Q12HR [facility] Last Admin: 12/20/18 09:03 Dose: 10 ml Sodium Chloride (Flush - Normal Saline) 10 ml IVF PRN PRN PRN Reason: Saline Flush Last Admin: 12/17/18 02:47 Dose: 10 ml
--- NOTE | 2018-12-20 11:05 | ULT ---
LIMITED ABDOMEN SONOGRAM: HISTORY: Distention and discomfort. Possible ascites. FINDINGS: Sonographic survey shows a very small amount of free fluid within the right abdomen. It is not of be fficient volume for therapeutic paracentesis and should not be causing abdominal distention. POS: [facility]
--- NOTE | 2018-12-20 14:54 | PRG ---
DATE OF SERVICE: 12/20/2018 SUBJECTIVE: Ms. Dinh is generating her shower. She states that she feels her swelling has gotten a little bit better. Her ultrasound on Thursday showed no evidence of palpable ascitic fluid, mainly just anasarca. OBJECTIVE: VITAL SIGNS: Temperature is 98, pulse 83, and blood pressure 115/71. Ins and outs, not recorded. Weight is 231, she was 224 on admission, she was 227 on the and 235 on the . GENERAL: She has a protuberant abdomen. She is in no distress. She is mildly icteric. LUNGS: Clear. EXTREMITIES: Reveal edema. LABORATORY DATA: Yesterday, her sodium was 132, potassium 4.2, BUN and creatinine were 30 and 2.71. Repeat amine markers did show a negative JENNIE and IgG of 2569. ASSESSMENT: 1. Fatty liver with probable early cirrhosis. 2. Anasarca, likely related to this and her severe diastolic dysfunction. 3. Abdominal pain, likely due to distention of soft tissues secondary to swelling. She is being treated empirically for possible cellulitis as well as erythema, although it is not clear if this is overly infectious. 4. In view of her CAT scan, she has a dilated inferior vena cava, where the vena cava is a little bit bigger than the aorta. I suspect there is probably a component of heart failure here, playing with her anasarca and peripheral edema. RECOMMENDATIONS: I agree with trial of the albumin and Lasix. She is to stay on low-sodium diet and may she needs dialysis to pull fluid off if her kidneys fail. We will defer to Cardiology for any management of her heart failure. Job ID: [id number]
[2018-12-20] MEDS: cefTRIAXone\\ROCEPHIN 2 GM in Sodium Chloride 0.9% 100 ML IVPB SCH (20:25)
[2018-12-21] MEDS: Midodrine HCl 5 MG TAB PO SCH ×2 (08:15→20:26)
[2018-12-21] MEDS: Furosemide 40 MG/4 ML VIAL SLOW IVP SCH ×2 (08:15→13:17)
[2018-12-21] MEDS: Famotidine 20 MG TAB PO SCH ×2 (08:16→20:26)
[2018-12-21] MEDS: HYDROcodone/Acetaminophen 5/325 mg Tablet PO PRN (08:16)
--- NOTE | 2018-12-21 10:23 | PRG ---
DATE OF SERVICE: 12/21/2018 SUBJECTIVE: Ms. Dinh is a 53-year-old female, who came in with generalized edema and is being followed by the Renal Service for her acute kidney injury that was hemodynamically-mediated renal function. She has been receiving IV albumin as well as IV Lasix. Lasix has been adjusted to 40 mg IV once a day. The patient still complaints of abdominal fullness. Please note, she has underlying cirrhosis. GI is following. No complaints of chest pain or shortness of breath. OBJECTIVE: VITAL SIGNS: Blood pressure is 111/75, heart rate 78, respiratory rate 16, temperature 98.2, pulse ox 100%. GENERAL: Noted to be awake, alert, comfortable, not in distress. SKIN: Adequate turgor. HEENT: Pinkish conjunctivae, icteric sclerae. NECK: No neck mass. No carotid bruits. No JVD. CHEST: No deformities. LUNGS: Decreased breath sounds. HEART: Normal sinus rhythm. No murmur. No gallops. No rubs. ABDOMEN: Globular, soft, nontender. No masses. EXTREMITIES: No edema. No deformities. MEDICATIONS: Medications of December 21, 2018, reviewed. LABORATORY DATA: Laboratories of December 20, 2018; white count 3.4, hemoglobin 8.7. Sodium 131, potassium 3.5, chloride 101, carbon dioxide 17, BUN 32, creatinine 2.83, calcium 9.5. ASSESSMENT AND PLAN: 1. Acute kidney [id number] renal dysfunction. My bias is to extend salt poor albumin for another 3 days, 25 g IV q.6h will be given. 2. Abdominal fullness/ascites. The patient is still complaining of discomfort and abdominal fullness with her belly. Her last 24-hour urine output only shows 750 mL and she seems to be gaining a few pounds the last few days. The plan will be to increase her Lasix to 80 mg IV daily. Overall, agree with current management. Job ID: [id number]
[2018-12-21] MEDS: Ondansetron PF 4 MG/2 ML Vial IVP PRN (13:16)
--- NOTE | 2018-12-21 13:16 | PDOC.PN ---
- Subjective Encounter Start Date: 12/21/18 Encounter Start Time: 13:00 Subjective: no sob, has lower abd pain -: is slowly mobilizing now - Objective Resuscitation Status - Order Detail: 12/14/18 20:37 Resuscitation Status Routine Resuscitation Status: DNAR: NO Resuscitation Discussed with: Patient DIPAK Reviewed: Yes Vital Signs & Weight: Vital Signs (12 hours) Temp Pulse Resp BP BP Pulse Ox 12/21/18 07:51 98.2 F 78 16 111/75 100 12/21/18 04:00 97.4 F L 83 16 112/72 95 Weight Admit Weight 224 lb 12.8 oz Weight 230 lb 11.2 oz I&O: 12/20/18 12/21/18 12/22/18 06:59 06:59 06:59 Intake Total 500 960 Output Total 750 Balance 500 210 Result Diagrams: 12/20/18 04:36 12/20/18 04:36 Additional Labs: Accuchecks 12/21/18 12/21/18 12/20/18 11:20 05:19 20:22 POC Glucose 117 H 101 121 H 12/20/18 16:50 POC Glucose 132 H Phys Exam - Physical Examination HEENT: PERRLA, moist MMs Neck: no JVD, supple Respiratory: no wheezing, no rales Cardiovascular: RRR, no significant murmur Gastrointestinal: soft, positive bowel sounds lower abd wall edema with tenderness Musculoskeletal: pulses present, edema present Neurological: non-focal, moves all 4 limbs Psychiatric: normal affect, A&O x 3 Dx/Plan (1) Anasarca Code(s): R60.1 - GENERALIZED EDEMA Status: Acute (2) Acute kidney failure Status: Acute (3) Diastolic CHF, acute on chronic Code(s): I50.33 - ACUTE ON CHRONIC DIASTOLIC (CONGESTIVE) HEART FAILURE Status : Acute (4) Cirrhosis of liver Code(s): K74.60 - UNSPECIFIED CIRRHOSIS OF LIVER Status: Chronic Qualifiers: Hepatic cirrhosis type: other cirrhosis Qualified Code(s): K74.69 - Other cirrhosis of liver (5) Anemia, normocytic normochromic Code(s): D64.9 - ANEMIA, UNSPECIFIED Status: Chronic (6) DM II (diabetes mellitus, type II), controlled Code(s): E11.9 - TYPE 2 DIABETES MELLITUS WITHOUT COMPLICATIONS Status: Chronic Qualifiers: Diabetes mellitus jail insulin use: without terminal supervisor use Diabetes mellitus complication status: with unspecified complications Qualified Code(s) : E11.8 - Type 2 diabetes mellitus with unspecified complications (7) HTN (hypertension) Code(s): I10 - ESSENTIAL (PRIMARY) HYPERTENSION Status: Chronic Qualifiers: Hypertension type: essential hypertension Qualified Code(s): I10 - Essential (primary) hypertension Comment: (8) Thrombocytopenia Code(s): D69.6 - THROMBOCYTOPENIA, UNSPECIFIED Status: Chronic (9) Obesity Code(s): E66.9 - OBESITY, UNSPECIFIED Status: Chronic Qualifiers: Obesity classification: adult class 3 (BMI >= 40) Serious obesity comorbidity presence: with serious comorbidity Body mass index: BMI 40.0-44.9 - Plan is on lasix iv daily, midodrine -: sbp holding up now, has gained 6 lbs from admit -: renal function stabilizing, off iv fluids and alb infusions -: to amb as tolerated, prognosis guarded -: continue ceftriaxone x 2 days and dc * . Review of Systems - Medications/Allergies Allergies/Adverse Reactions: Allergies Allergy/AdvReac Type Severity Reaction Status Date / Time aspirin Allergy Unknown Nausea Verified 12/14/18 22:52 Medications: Current Medications Hydrocodone Bitart/Acetaminophen ([place] 5/325) 1 tab PO Q4H PRN PRN Reason: Moderate Pain (4-6) Last Admin: 12/21/18 08:16 Dose: 1 tab Albumin Human (Albumin 25%) 25 gm IVPB Q6HR [facility] Stop: 12/24/18 12:01 Dextrose/Water (Dextrose 50%) 25 gm SLOW IVP PRN PRN PRN Reason: Hypoglycemia Famotidine (Pepcid) 20 mg PO BID [facility] Last Admin: 12/21/18 08:16 Dose: 20 mg Furosemide (Lasix) 80 mg SLOW IVP 0600,1400 [facility] Glucagon (Glucagon) 1 mg IM PRN PRN PRN Reason: Hypoglycemia Dextrose/Water (D5w) 1,000 mls @ 0 mls/hr IV .Q0M PRN PRN Reason: Hypoglycemia Ceftriaxone Sodium 2 gm/ (Sodium Chloride) 100 mls @ 200 mls/hr IVPB 2100 [facility] Last Admin: 12/20/18 20:25 Dose: 100 mls Insulin Human Lispro (Humalog) 0 units SC .MILD SLIDING SCALE PRN PRN Reason: Mild Correctional Scale Insulin Human Lispro (Humalog) 0 units SC .BEDTIME SLIDING SC PRN PRN Reason: Bedtime Correctional Scale Midodrine (Proamatine) 7.5 mg PO BID [facility] Last Admin: 12/21/18 08:15 Dose: 7.5 mg Ondansetron HCl (Zofran Odt) 4 mg PO Q6H PRN PRN Reason: Nausea/Vomiting Last Admin: 12/18/18 18:20 Dose: 4 mg Ondansetron HCl (Zofran) 4 mg IVP Q6H PRN PRN Reason: Nausea/Vomiting Last Admin: 12/19/18 01:03 Dose: 4 mg Senna/Docusate Sodium (Senokot S) 2 tab PO BID PRN PRN Reason: Constipation Sodium Chloride (Flush - Normal Saline) 10 ml IVF Q12HR [facility] Last Admin: 12/21/18 08:18 Dose: 10 ml Sodium Chloride (Flush - Normal Saline) 10 ml IVF PRN PRN PRN Reason: Saline Flush Last Admin: 12/17/18 02:47 Dose: 10 ml
[2018-12-21] MEDS: Albumin 25% 25 GM/100 ML BOT IVPB SCH ×2 (13:17→18:21)
[2018-12-21] MEDS ORDERED: Furosemide 100 MG/10 ML VIAL SLOW IVP SCH (14:00)
[2018-12-21] MEDS ORDERED: Furosemide 40 MG/4 ML VIAL SLOW IVP SCH (14:00)
[2018-12-21] MEDS: cefTRIAXone\\ROCEPHIN 2 GM in Sodium Chloride 0.9% 100 ML IVPB SCH (20:25)
[2018-12-22] MEDS: Albumin 25% 25 GM/100 ML BOT IVPB SCH ×5 (00:22→20:07)
[2018-12-22] MEDS: Furosemide 40 MG/4 ML VIAL SLOW IVP SCH ×2 (05:32→15:42)
[2018-12-22 06:53] LABS: Hemoglobin 8.2 g/dL (12.0-16.0); Mean Corpuscular HGB CONC 29.4 g/dL (32.0-36.0); Mean Corpuscular Hemoglobin 23.5 pg (27.0-31.0); Mean Platelet Volume 7.5 fL (7.4-10.4); Platelet Count 45 thou/uL (130-400); Red Blood Cell (RBC) Count 3.47 mill/uL (4.20-5.40); White Blood Cell (WBC) Count 2.7 thou/uL (4.8-10.8)
[2018-12-22 07:10] LABS: Anion Gap 15 mmol/L (10-20); BUN (Urea Nitrogen) 27 mg/dL (9.8-20.1); Calc. Creatinine Clearance 52 mL/min (70-130); Carbon Dioxide 23 mmol/L (22-29); Chloride 100 mmol/L (98-107); Estimated GFR-MDRD 25; Glucose 103 mg/dL (70-105); Potassium 3.5 mmol/L (3.5-5.1); Sodium 134 mmol/L (136-145)
[2018-12-22 07:40] LABS: #Eosinphils 0.1 thou/uL (0.0-0.7); #Lymphocytes 0.5 thou/uL (1.20-3.40); #Monocytes 0.4 thou/uL (0.11-0.59); #Neutrophils 1.7 thou/uL (1.40-6.50); %Basophils 1.3 % (0.0-1.0); %Eosinophils 3.8 % (0.0-10.0); %Lymphocytes 17.2 % (21.0-51.0); %Monocytes 13.9 % (0.0-10.0); %Neutrophils 63.8 % (42.0-75.0); Hypochromia MODERATE=16-30 cells (100X) (0-5/hpf); MDiff Complete? YES; Ovalocytes SLIGHT = 2-5 cells (100X) (0-1/hpf); Platelet Morphology Comment Appears Decreased; Poikilocytosis SLIGHT = 6-15 cells (100X) (0-5/hpf); Target Cells SLIGHT = 2-5 cells (100X) (0-1/hpf)
[2018-12-22] MEDS: Midodrine HCl 5 MG TAB PO SCH ×2 (08:19→20:07)
[2018-12-22] MEDS: Famotidine 20 MG TAB PO SCH ×2 (08:19→20:07)
--- NOTE | 2018-12-22 10:04 | PRG ---
DATE OF SERVICE: 12/22/2018 SUBJECTIVE: Ms. Dinh is a 53-year-old female, who was seen by the Renal Service for acute kidney injury. She was initially admitted for anasarca. She was diuresed and given albumin infusion due to the worsening renal dysfunction. Yesterday, I increased her Lasix to 80 mg IV daily due to the persistent ascites and abdominal fullness. This morning, she is feeling better. She feels that her abdominal fullness is improved. Denies any chest pain or shortness of breath. OBJECTIVE: VITAL SIGNS: Blood pressure 116/80, heart rate 77, respiratory rate 22, temperature 97.6, and pulse ox 95%. GENERAL: Noted to be awake, alert, and comfortable, not in distress. The patient is ambulatory. SKIN: Adequate turgor. HEENT: She has a pinkish conjunctivae. She has an icteric sclerae. NECK: No neck mass. No carotid bruits. No JVD. LUNGS: Clear breath sounds. No wheezing. No crackles. HEART: Normal sinus rhythm. No murmurs. No gallops. No rubs. ABDOMEN: Globular, soft, and nontender. No masses. EXTREMITIES: Positive for edema, but no deformities. MEDICATIONS: Medications of December 22, 2018, reviewed. LABORATORY DATA: Laboratories of December 22, 2018; white count 2.7, hemoglobin 8.2. Sodium 134, potassium 3.5, chloride 100, carbon dioxide 23, BUN 27, creatinine 2.07, glucose 103, and calcium 10. ASSESSMENT AND PLAN: 1. Acute kidney injury - hemodynamically-mediated renal dysfunction. The patient has received diuretics in the past. Due to the persistent ascites and anasarca, I have decided to go back to Lasix 80 mg IV q.12 with this patient. So far, she is tolerating the current diuretic regimen. Most recent creatinine is noted at 2.07 and yesterday this was noted at 2.83. I would at least continue the patient's albumin infusion for the next several days. 2. Cirrhosis - eventual evaluation in [place] for possible liver transplant. 3. Overall, agree with current management. Job ID: [id number]
--- NOTE | 2018-12-22 12:11 | PDOC.PN ---
- Subjective Encounter Start Date: 12/22/18 Encounter Start Time: 11:20 Subjective: no sob, says she is amb in room - Objective Resuscitation Status - Order Detail: 12/14/18 20:37 Resuscitation Status Routine Resuscitation Status: DNAR: NO Resuscitation Discussed with: Patient DIPAK Reviewed: Yes Vital Signs & Weight: Vital Signs (12 hours) Temp Pulse Resp BP BP Pulse Ox 12/22/18 11:25 97.6 F 77 20 99/65 95 12/22/18 08:00 95 12/22/18 07:48 97.6 F 77 22 H 116/80 95 12/22/18 04:40 74 20 115/79 97 Weight Admit Weight 224 lb 12.8 oz Weight 230 lb 14.4 oz I&O: 12/21/18 12/22/18 12/23/18 06:59 06:59 06:59 Intake Total 960 100 240 Output Total 750 Balance 210 100 240 Result Diagrams: 12/22/18 06:29 12/22/18 06:29 Additional Labs: Accuchecks 12/22/18 12/21/18 12/21/18 06:06 19:51 15:51 POC Glucose 107 109 134 H Phys Exam - Physical Examination HEENT: PERRLA, moist MMs Neck: no JVD, supple Respiratory: no wheezing, no rales Cardiovascular: RRR, no significant murmur Gastrointestinal: soft, positive bowel sounds abd wall edema+++ in lower quadrants Musculoskeletal: pulses present, edema present Neurological: non-focal, moves all 4 limbs Psychiatric: normal affect, A&O x 3 Dx/Plan (1) Anasarca Code(s): R60.1 - GENERALIZED EDEMA Status: Acute (2) Acute kidney failure Status: Acute (3) Diastolic CHF, acute on chronic Code(s): I50.33 - ACUTE ON CHRONIC DIASTOLIC (CONGESTIVE) HEART FAILURE Status : Resolved (4) Cirrhosis of liver Code(s): K74.60 - UNSPECIFIED CIRRHOSIS OF LIVER Status: Chronic Qualifiers: Hepatic cirrhosis type: other cirrhosis Qualified Code(s): K74.69 - Other cirrhosis of liver (5) Anemia, normocytic normochromic Code(s): D64.9 - ANEMIA, UNSPECIFIED Status: Chronic (6) DM II (diabetes mellitus, type II), controlled Code(s): E11.9 - TYPE 2 DIABETES MELLITUS WITHOUT COMPLICATIONS Status: Chronic Qualifiers: Diabetes mellitus detention insulin use: without core shaper use Diabetes mellitus complication status: with unspecified complications Qualified Code(s) : E11.8 - Type 2 diabetes mellitus with unspecified complications (7) HTN (hypertension) Code(s): I10 - ESSENTIAL (PRIMARY) HYPERTENSION Status: Chronic Qualifiers: Hypertension type: essential hypertension Qualified Code(s): I10 - Essential (primary) hypertension Comment: (8) Thrombocytopenia Code(s): D69.6 - THROMBOCYTOPENIA, UNSPECIFIED Status: Chronic (9) Obesity Code(s): E66.9 - OBESITY, UNSPECIFIED Status: Chronic Qualifiers: Obesity classification: adult class 3 (BMI >= 40) Serious obesity comorbidity presence: with serious comorbidity Body mass index: BMI 40.0-44.9 - Plan dc planning -: needs to ambulate more, wear letha hose, fluid restriction 1100mls/day -: on lasix 40mg iv daily, midodrine -: will ceftriaxone in am, likely dc plan in am if stable -: d/w Case mgmt for dc planning help * . Review of Systems - Medications/Allergies Allergies/Adverse Reactions: Allergies Allergy/AdvReac Type Severity Reaction Status Date / Time aspirin Allergy Unknown Nausea Verified 12/14/18 22:52 Medications: Current Medications Hydrocodone Bitart/Acetaminophen ([place] 5/325) 1 tab PO Q4H PRN PRN Reason: Moderate Pain (4-6) Last Admin: 12/21/18 08:16 Dose: 1 tab Dextrose/Water (Dextrose 50%) 25 gm SLOW IVP PRN PRN PRN Reason: Hypoglycemia Famotidine (Pepcid) 20 mg PO BID [facility] Last Admin: 12/22/18 08:19 Dose: 20 mg Furosemide (Lasix) 80 mg SLOW IVP 0600,1400 [facility] Last Admin: 12/22/18 05:32 Dose: 80 mg Glucagon (Glucagon) 1 mg IM PRN PRN PRN Reason: Hypoglycemia Dextrose/Water (D5w) 1,000 mls @ 0 mls/hr IV .Q0M PRN PRN Reason: Hypoglycemia Ceftriaxone Sodium 2 gm/ (Sodium Chloride) 100 mls @ 200 mls/hr IVPB 2100 [facility] Last Admin: 12/21/18 20:25 Dose: 100 mls Insulin Human Lispro (Humalog) 0 units SC .MILD SLIDING SCALE PRN PRN Reason: Mild Correctional Scale Insulin Human Lispro (Humalog) 0 units SC .BEDTIME SLIDING SC PRN PRN Reason: Bedtime Correctional Scale Midodrine (Proamatine) 7.5 mg PO BID [facility] Last Admin: 12/22/18 08:19 Dose: 7.5 mg Ondansetron HCl (Zofran Odt) 4 mg PO Q6H PRN PRN Reason: Nausea/Vomiting Last Admin: 12/18/18 18:20 Dose: 4 mg Ondansetron HCl (Zofran) 4 mg IVP Q6H PRN PRN Reason: Nausea/Vomiting Last Admin: 12/21/18 13:16 Dose: 4 mg Senna/Docusate Sodium (Senokot S) 2 tab PO BID PRN PRN Reason: Constipation Sodium Chloride (Flush - Normal Saline) 10 ml IVF Q12HR [facility] Last Admin: 12/22/18 08:19 Dose: 10 ml Sodium Chloride (Flush - Normal Saline) 10 ml IVF PRN PRN PRN Reason: Saline Flush Last Admin: 12/17/18 02:47 Dose: 10 ml
[2018-12-22 13:01] VITALS: BMI 39.6
--- NOTE | 2018-12-22 15:05 | PRG ---
DATE OF SERVICE: 12/22/2018 SUBJECTIVE: Ms. Dinh feels about the same. She still complains of abdominal bloating. Dr. Lanza has increased her Lasix back to 80 IV q.12 with some IV albumin infusions; however, while reviewing her medications, the albumin was either discontinued today or turned off today. I have talked with him on the phone. He wants to continue that. OBJECTIVE: VITAL SIGNS: Temperature 97, pulse 77, blood pressure 99/65. LUNGS: Clear. HEART: Regular rate and rhythm. ABDOMEN: Protuberant. She has anasarca up to mid abdomen and back and in her legs. EXTREMITIES: Reveal edema, both brawny and mainly nonpitting. LABORATORY STUDIES: White count 2.7, hemoglobin 8.2, platelet count 45,000. BUN and creatinine 27 and 2.07, down from 2.83 on 12/20. ASSESSMENT: Anasarca related to heart failure and cirrhosis. Weight is 230 pounds, as same as yesterday. PLAN: Agree with increasing aggressiveness of diuresis. With low blood pressure, we will increase midodrine. We will defer to Cardiology for management of heart failure and recommend the patient to continue low-salt diet. Job ID: [id number]
[2018-12-22] MEDS: HYDROcodone/Acetaminophen 5/325 mg Tablet PO PRN (18:10)
[2018-12-22] MEDS: cefTRIAXone\\ROCEPHIN 2 GM in Sodium Chloride 0.9% 100 ML IVPB SCH (20:08)
[2018-12-23] MEDS: Albumin 25% 25 GM/100 ML BOT IVPB SCH ×3 (02:24→14:20)
[2018-12-23] MEDS: Furosemide 40 MG/4 ML VIAL SLOW IVP SCH ×2 (06:18→14:20)
[2018-12-23] MEDS: Midodrine HCl 5 MG TAB PO SCH ×2 (10:40→20:35)
[2018-12-23] MEDS: Famotidine 20 MG TAB PO SCH ×2 (10:40→20:35)
--- NOTE | 2018-12-23 12:15 | PDOC.PN ---
- Subjective Encounter Start Date: 12/23/18 Encounter Start Time: 10:35 Subjective: abd pain is better, is a bit less distended this am per patient -: no sob -: says she will participate with therapy today - Objective Resuscitation Status - Order Detail: 12/14/18 20:37 Resuscitation Status Routine Resuscitation Status: DNAR: NO Resuscitation Discussed with: Patient DIPAK Reviewed: Yes Vital Signs & Weight: Vital Signs (12 hours) Temp Pulse Resp BP Pulse Ox 12/23/18 07:47 97.8 F 81 16 111/75 96 12/23/18 04:40 77 20 109/75 Weight Admit Weight 224 lb 12.8 oz Weight 228 lb 11.2 oz I&O: 12/22/18 12/23/18 12/24/18 06:59 06:59 06:59 Intake Total 100 890 Output Total 0 Balance 100 890 Result Diagrams: 12/22/18 06:29 12/22/18 06:29 Additional Labs: Accuchecks 12/23/18 12/23/18 12/22/18 11:06 05:23 19:36 POC Glucose 119 H 96 134 H 12/22/18 12/22/18 16:08 11:37 POC Glucose 104 107 Phys Exam - Physical Examination HEENT: PERRLA, moist MMs Neck: no JVD, supple Respiratory: no wheezing, no rales Cardiovascular: RRR, no significant murmur Gastrointestinal: soft, positive bowel sounds abd wall edema is more in the left LQ, is receding Musculoskeletal: pulses present, edema present Neurological: non-focal, moves all 4 limbs Psychiatric: normal affect, A&O x 3 Dx/Plan (1) Anasarca Code(s): R60.1 - GENERALIZED EDEMA Status: Acute (2) Acute kidney failure Status: Acute (3) Diastolic CHF, acute on chronic Code(s): I50.33 - ACUTE ON CHRONIC DIASTOLIC (CONGESTIVE) HEART FAILURE Status : Resolved (4) Cirrhosis of liver Code(s): K74.60 - UNSPECIFIED CIRRHOSIS OF LIVER Status: Chronic Qualifiers: Hepatic cirrhosis type: other cirrhosis Qualified Code(s): K74.69 - Other cirrhosis of liver (5) Anemia, normocytic normochromic Code(s): D64.9 - ANEMIA, UNSPECIFIED Status: Chronic (6) DM II (diabetes mellitus, type II), controlled Code(s): E11.9 - TYPE 2 DIABETES MELLITUS WITHOUT COMPLICATIONS Status: Chronic Qualifiers: Diabetes mellitus alf insulin use: without alf use Diabetes mellitus complication status: with unspecified complications Qualified Code(s) : E11.8 - Type 2 diabetes mellitus with unspecified complications (7) HTN (hypertension) Code(s): I10 - ESSENTIAL (PRIMARY) HYPERTENSION Status: Chronic Qualifiers: Hypertension type: essential hypertension Qualified Code(s): I10 - Essential (primary) hypertension Comment: (8) Thrombocytopenia Code(s): D69.6 - THROMBOCYTOPENIA, UNSPECIFIED Status: Chronic (9) Obesity Code(s): E66.9 - OBESITY, UNSPECIFIED Status: Chronic Qualifiers: Obesity classification: adult class 3 (BMI >= 40) Serious obesity comorbidity presence: with serious comorbidity Body mass index: BMI 40.0-44.9 - Plan her lasix was increased to 80mg q12h from yesterday -: is diuresing well with the current dose -: renal function is holding up -: is on increased dose of midodrine 10mg bid -: counselled to amb in hallway, wear letha hose while up/walking * . Review of Systems - Medications/Allergies Allergies/Adverse Reactions: Allergies Allergy/AdvReac Type Severity Reaction Status Date / Time aspirin Allergy Unknown Nausea Verified 12/14/18 22:52 Medications: Current Medications Hydrocodone Bitart/Acetaminophen ([place] 5/325) 1 tab PO Q4H PRN PRN Reason: Moderate Pain (4-6) Last Admin: 12/22/18 18:10 Dose: 1 tab Albumin Human (Albumin 25%) 25 gm IVPB Q6H [facility] Stop: 12/24/18 08:31 Last Admin: 12/23/18 10:40 Dose: 25 gm Dextrose/Water (Dextrose 50%) 25 gm SLOW IVP PRN PRN PRN Reason: Hypoglycemia Famotidine (Pepcid) 20 mg PO BID [facility] Last Admin: 12/23/18 10:40 Dose: 20 mg Furosemide (Lasix) 80 mg SLOW IVP 0600,1400 [facility] Last Admin: 12/23/18 06:18 Dose: 80 mg Glucagon (Glucagon) 1 mg IM PRN PRN PRN Reason: Hypoglycemia Dextrose/Water (D5w) 1,000 mls @ 0 mls/hr IV .Q0M PRN PRN Reason: Hypoglycemia Ceftriaxone Sodium 2 gm/ (Sodium Chloride) 100 mls @ 200 mls/hr IVPB 2100 [facility] Last Admin: 12/22/18 20:08 Dose: 100 mls Insulin Human Lispro (Humalog) 0 units SC .MILD SLIDING SCALE PRN PRN Reason: Mild Correctional Scale Insulin Human Lispro (Humalog) 0 units SC .BEDTIME SLIDING SC PRN PRN Reason: Bedtime Correctional Scale Midodrine (Proamatine) 10 mg PO BID [facility] Last Admin: 12/23/18 10:40 Dose: 10 mg Ondansetron HCl (Zofran Odt) 4 mg PO Q6H PRN PRN Reason: Nausea/Vomiting Last Admin: 12/18/18 18:20 Dose: 4 mg Ondansetron HCl (Zofran) 4 mg IVP Q6H PRN PRN Reason: Nausea/Vomiting Last Admin: 12/21/18 13:16 Dose: 4 mg Senna/Docusate Sodium (Senokot S) 2 tab PO BID PRN PRN Reason: Constipation Sodium Chloride (Flush - Normal Saline) 10 ml IVF Q12HR [facility] Last Admin: 12/23/18 10:41 Dose: 10 ml Sodium Chloride (Flush - Normal Saline) 10 ml IVF PRN PRN PRN Reason: Saline Flush Last Admin: 12/17/18 02:47 Dose: 10 ml
--- NOTE | 2018-12-23 19:02 | PRG ---
DATE OF SERVICE: 12/23/2018 SUBJECTIVE: Ms. Dinh feels a little better. She feels she got some fluid off the diuretics. PRESENT MEDICATIONS: 1. Albumin 25 IV q.6 h. 2. Rocephin. 3. Pepcid. 4. Lasix 80 q.12 h. IV. 5. Midodrine 2 mg b.i.d. OBJECTIVE: VITAL SIGNS: Temperature is 97, blood pressure 111/75. In's and out's difficult to obtain, but her weight is 228 today, down from 230 yesterday. ABDOMEN: She still has anasarca up to the mid abdomen and mid back. EXTREMITIES: She still has pitting edema in the legs. LUNGS: Clear. HEENT: She is icteric. LABORATORY DATA: No labs today. ASSESSMENT: 1. Total body anasarca and volume overload. I think she has multiple factors contributing to this including her cirrhosis. I think her heart failure is contributing to it probably more though. She has a dilated inferior vena cava and some signs of passive congestion. She has elevated bilirubin out of proportion to her albumin, which was fairly normal when she came in. She has severe diastolic dysfunction on the echocardiogram but a pretty good ejection fraction. I think this is deceptive of her cardiac function and the role that is playing in her anasarca. She has no ascites which is fairly atypical. 2. Cirrhosis. She does have some cirrhosis by biopsy, it was felt to be related to fatty liver. On admission on 12/14, bilirubin 4.3, albumin 2.8. She has no ascites and that is fairly atypical for individuals with cirrhosis with this degree of anasarca and is one of the reasons I feel that probably her heart failure is probably a bigger contributor to her fluid retention. 3. Renal insufficiency with diuresis. She was re-bumping her creatinine with low blood pressure. We started her on midodrine. RECOMMENDATIONS: 1. Continue present regimen, watch BUN and creatinine and recheck liver enzymes tomorrow. 2. I think it is reasonable to ask Cardiology to reevaluate from a standpoint of cardiac function to see if there is anything that may help the diastolic dysfunction. Job ID: [id number]
[2018-12-23] MEDS: HYDROcodone/Acetaminophen 5/325 mg Tablet PO PRN (20:35)
[2018-12-23] MEDS: cefTRIAXone\\ROCEPHIN 2 GM in Sodium Chloride 0.9% 100 ML IVPB SCH (20:42)
[2018-12-23] MEDS ORDERED: Spironolactone 25 MG TAB PO SCH (20:46)
--- NOTE | 2018-12-23 21:19 | PRG ---
DATE OF SERVICE: 12/23/2018 SUBJECTIVE: A 53-year-old lady with liver cirrhosis, diastolic heart failure on June, admitted due to worsening generalized swelling. The patient was started on diuretic therapy, but later developed acute worsening of renal function, anticipating Nephrology consult. Renal function has improved, they were not yet to baseline. No new problem except that she still have good amount of swelling. OBJECTIVE: VITAL SIGNS: Blood pressure 111/75, temperature 97.8, pulse 81, respiratory rate 16, SpO2 of 96 on room air. GENERAL: Obese lady, in no obvious distress. Afebrile, anicteric, acyanotic. HEENT: Normocephalic, atraumatic. Oral mucosa is moist. RESPIRATORY: Fair air entry bilaterally with no obvious crackles. CARDIAC: Regular rhythm and rate. ABDOMEN: Distended, soft, and nontender. Bowel sound is normal. EXTREMITIES: Bilateral leg edema, especially on the left. NEUROLOGIC: Conscious and alert, oriented x3 with appropriate mental status. DIAGNOSTIC DATA: BMP on December 22 showed creatinine of 2.07 with BUN of 27, sodium of 134, potassium of 3.5. ASSESSMENT: 1. [id number] renal failure. The patient has baseline CKD stage 3. Acute worsening of renal function most likely is hemodynamic mediated owing to aggressive diuretics. Renal function has improved with the escalation of diuretics. Hepatorenal syndrome cannot be ruled out completely. We will continue diuretics, Lasix as well as albumin. We will start spironolactone. We will also monitor renal function and electrolytes. 2. Anasarca: Continue diuretics and monitor renal function. 3. Liver cirrhosis: Decompensated. Referral for liver transplant to be explored when the patient is more stable. Job ID: [id number]
[2018-12-24] MEDS: Furosemide 40 MG/4 ML VIAL SLOW IVP SCH ×2 (05:25→13:22)
[2018-12-24] MEDS ORDERED: Spironolactone 25 MG TAB PO SCH ×2 (08:00→21:00)
[2018-12-24] MEDS: Famotidine 20 MG TAB PO SCH ×2 (08:05→21:43)
[2018-12-24] MEDS: Midodrine HCl 5 MG TAB PO SCH ×2 (08:05→21:43)
[2018-12-24 09:30] LABS: ALT (SGPT) 14 U/L (8-55); AST (SGOT) 39 U/L (5-34); Albumin 4.4 g/dL (3.5-5.0); Alkaline Phosphatase 47 U/L (40-150); Anion Gap 15 mmol/L (10-20); BUN (Urea Nitrogen) 23 mg/dL (9.8-20.1); Bilirubin, Direct 4.3 mg/dL (0.1-0.3); Bilirubin, Total 7.7 mg/dL (0.2-1.2); Calc. Creatinine Clearance 58 mL/min (70-130); Calcium 10.1 mg/dL (7.8-10.44); Carbon Dioxide 23 mmol/L (22-29); Chloride 100 mmol/L (98-107); Estimated GFR-MDRD 29; Glucose 108 mg/dL (70-105); Potassium 3.3 mmol/L (3.5-5.1); Protein, Total 7.3 g/dL (6.0-8.3); Sodium 135 mmol/L (136-145)
[2018-12-24 09:43] LABS: Anisocytosis MODERATE=16-30 cells (100X) (0-5/hpf); Band 2 % (5-11); Eosinophils 6 % (0-10); Hemoglobin 7.9 g/dL (12.0-16.0); Hypochromia MODERATE=16-30 cells (100X) (0-5/hpf); Lymphocytes 21 % (21-51); MDiff Complete? YES; Mean Corpuscular HGB CONC 29.1 g/dL (32.0-36.0); Mean Corpuscular Hemoglobin 23.5 pg (27.0-31.0); Mean Corpuscular Volume 80.7 fL (78.0-98.0); Mean Platelet Volume 7.2 fL (7.4-10.4); Monocytes 6 % (0-10); Neutrophil 64 % (42-75); Nucleated RBC 1 % (0); Platelet Count 46 thou/uL (130-400); Platelet Morphology Comment Appears Decreased; Polychromasia SLIGHT = 2-3 cells (100X) (0-2/hpf); RBC Distribution Width 21.1 % (11.5-14.5); Reactive Lymphocytes 1 % (0-10); Red Blood Cell (RBC) Count 3.36 mill/uL (4.20-5.40); Target Cells SLIGHT = 2-5 cells (100X) (0-1/hpf)
--- NOTE | 2018-12-24 16:06 | PRG ---
DATE OF SERVICE: 12/24/2018 SUBJECTIVE: A 53-year-old obese female with history of liver cirrhosis, diastolic heart failure, admitted with worsening generalized body swelling. The patient had developed acute kidney injury necessitating Nephrology consult. The patient has no new problem, and she thinks the swelling is getting better. OBJECTIVE: VITAL SIGNS: BP 109/74, temperature 97.8, pulse 77, respiratory rate 16, SpO2 of 90% on room air. GENERAL: Obese lady in no obvious distress. Afebrile and acyanotic. HEENT: Normocephalic, atraumatic. Oral mucosa is moist. RESPIRATORY: Fair air entry bilaterally with no obvious crackle or rhonchi. CARDIAC: Regular rhythm and rate with normal heart sounds 1 and 2. ABDOMEN: Enlarged, soft and nontender with normal bowel sounds. Abdominal wall edema noted. EXTREMITIES: Marked bilateral leg edema noted. NEUROLOGIC: Conscious, alert, and oriented x3 with appropriate mental status. DIAGNOSTIC DATA: BMP showed sodium 135, potassium 3.3, chloride 100, carbon dioxide 23, BUN 23, creatinine 1.84, glucose 108, total bilirubin 7.7, direct 4.3, AST 39, ALT 14, alkaline phosphatase 47. CBC showed WBC count of 3.0, hemoglobin of 8.9, and platelet of 46. ASSESSMENT AND PLAN: 1. Acute on chronic renal failure. The patient at baseline has chronic kidney disease stage 3. Acute kidney injury is due to hemodynamic factors, most likely related to aggressive diuretics. Hepatorenal syndrome is unlikely. Renal function is improving with creatinine trending down slowly. 2. Anasarca: The patient is markedly fluid overloaded. It is due to interaction between liver cirrhosis and diastolic heart failure. We will continue diuretics with Lasix and spironolactone. I have increased spironolactone to 25 mg b.i.d. with a view to optimization as tolerated. 3. Hypokalemia: Might. Addition of spironolactone is expected to improve serum potassium. No supplementation is needed at this time. 4. Liver cirrhosis: Decompensated. GI following. 5. We will get repeat BMP in the morning with a view to increase spironolactone further. Job ID: [id number]
--- NOTE | 2018-12-24 16:31 | PDOC.PN ---
- Subjective Encounter Start Date: 12/24/18 Encounter Start Time: 09:20 Pt seen for followup re: abebe. Says she feels well. - Objective Resuscitation Status - Order Detail: 12/14/18 20:37 Resuscitation Status Routine Resuscitation Status: DNAR: NO Resuscitation Discussed with: Patient Vital Signs & Weight: Vital Signs (12 hours) Temp Pulse Resp BP BP Pulse Ox 12/24/18 08:08 96 12/24/18 08:05 96 12/24/18 07:55 88 L 12/24/18 07:42 97.8 F 77 16 109/74 90 L 12/24/18 05:00 97.7 F 77 18 118/78 94 L Weight Admit Weight 224 lb 12.8 oz Weight 227 lb 11.8 oz I&O: 12/23/18 12/24/18 12/25/18 06:59 06:59 06:59 Intake Total 890 1270 Output Total 0 Balance 890 1270 Result Diagrams: 12/24/18 08:43 12/24/18 08:43 Additional Labs: Accuchecks 12/24/18 12/24/18 12/23/18 11:41 04:50 20:44 POC Glucose 121 H 123 H 126 H 12/23/18 16:17 POC Glucose 155 H Phys Exam - Physical Examination Obese HEENT: moist MMs Neck: supple Respiratory: clear to auscultation bilateral Cardiovascular: RRR Gastrointestinal: soft Musculoskeletal: edema present Neurological: moves all 4 limbs Psychiatric: normal affect Dx/Plan (1) Glennarca Code(s): R60.1 - GENERALIZED EDEMA Status: Acute Comment: continue furosemide (2) Cirrhosis of liver Code(s): K74.60 - UNSPECIFIED CIRRHOSIS OF LIVER Status: Chronic Qualifiers: Hepatic cirrhosis type: other cirrhosis Qualified Code(s): K74.69 - Other cirrhosis of liver Comment: stable (3) DM II (diabetes mellitus, type II), controlled Code(s): E11.9 - TYPE 2 DIABETES MELLITUS WITHOUT COMPLICATIONS Status: Chronic Qualifiers: Diabetes mellitus 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 insulin use: without correction use Diabetes mellitus complication status: with unspecified complications Qualified Code(s) : E11.8 - Type 2 diabetes mellitus with unspecified complications Comment: controlled (4) HTN (hypertension) Code(s): I10 - ESSENTIAL (PRIMARY) HYPERTENSION Status: Chronic Qualifiers: Hypertension type: essential hypertension Qualified Code(s): I10 - Essential (primary) hypertension Comment: controlled (5) Obesity (BMI 30-39.9) Code(s): E66.9 - OBESITY, UNSPECIFIED Status: Chronic (6) Chronic diastolic heart failure Code(s): I50.32 - CHRONIC DIASTOLIC (CONGESTIVE) HEART FAILURE Status: Chronic Comment: stable - Plan * . Review of Systems - Review of Systems Respiratory: negative: Cough, Shortness of Breath, SOB with Excertion, Pleuritic Pain, Wheezing Cardiovascular: negative: chest pain, palpitations, orthopnea, paroxysmal nocturnal dyspnea, edema, light headedness - Medications/Allergies Allergies/Adverse Reactions: Allergies Allergy/AdvReac Type Severity Reaction Status Date / Time aspirin Allergy Unknown Nausea Verified 12/14/18 22:52 Medications: Current Medications Hydrocodone Bitart/Acetaminophen (Brandon 5/325) 1 tab PO Q4H PRN PRN Reason: Moderate Pain (4-6) Last Admin: 12/23/18 20:35 Dose: 1 tab Dextrose/Water (Dextrose 50%) 25 gm SLOW IVP PRN PRN PRN Reason: Hypoglycemia Famotidine (Pepcid) 20 mg PO BID [facility] Last Admin: 12/24/18 08:05 Dose: 20 mg Furosemide (Lasix) 80 mg SLOW IVP 0600,1400 [facility] Last Admin: 12/24/18 13:22 Dose: 80 mg Glucagon (Glucagon) 1 mg IM PRN PRN PRN Reason: Hypoglycemia Dextrose/Water (D5w) 1,000 mls @ 0 mls/hr IV .Q0M PRN PRN Reason: Hypoglycemia Ceftriaxone Sodium 2 gm/ (Sodium Chloride) 100 mls @ 200 mls/hr IVPB 2100 [facility] Last Admin: 12/23/18 20:42 Dose: 100 mls Insulin Human Lispro (Humalog) 0 units SC .MILD SLIDING SCALE PRN PRN Reason: Mild Correctional Scale Insulin Human Lispro (Humalog) 0 units SC .BEDTIME SLIDING SC PRN PRN Reason: Bedtime Correctional Scale Midodrine (Proamatine) 10 mg PO BID [facility] Last Admin: 12/24/18 08:05 Dose: 10 mg Ondansetron HCl (Zofran Odt) 4 mg PO Q6H PRN PRN Reason: Nausea/Vomiting Last Admin: 12/18/18 18:20 Dose: 4 mg Ondansetron HCl (Zofran) 4 mg IVP Q6H PRN PRN Reason: Nausea/Vomiting Last Admin: 12/21/18 13:16 Dose: 4 mg Senna/Docusate Sodium (Senokot S) 2 tab PO BID PRN PRN Reason: Constipation Sodium Chloride (Flush - Normal Saline) 10 ml IVF Q12HR [facility] Last Admin: 12/24/18 08:06 Dose: 10 ml Sodium Chloride (Flush - Normal Saline) 10 ml IVF PRN PRN PRN Reason: Saline Flush Last Admin: 12/17/18 02:47 Dose: 10 ml Spironolactone (Aldactone) 25 mg PO BID [facility]
--- NOTE | 2018-12-24 17:25 | PRG ---
DATE OF SERVICE: 12/24/2018 SUBJECTIVE: The patient is feeling good. She has been walking around the room. She is eating fair amount. She has not had a bowel movement today. OBJECTIVE: VITAL SIGNS: Temperature 97.8, pulse 77, respiratory rate 16, blood pressure 109/74. CHEST: Clear. CARDIOVASCULAR: Regular rate and rhythm. ABDOMEN: Distended, but mostly lower half has anasarca as are her lower extremities. LABORATORY DATA: Sodium 135, potassium 3.3, BUN 23, creatinine 1.84, glucose 108, total bilirubin 7.7, AST 39, albumin 4.4. ASSESSMENT: 1. Anasarca - my feeling is this is mostly cardiac related as opposed to cirrhosis. 2. Cirrhosis - stable, total bilirubin seems to be increasing, but her transaminases and alkaline phosphatase as well as her albumin are all normal. Sometimes elevated bilirubin can be seen with volume contracture. RECOMMENDATIONS: 1. Continue midodrine. 2. Continue Lasix. 3. Continue Aldactone. Job ID: [id number]
[2018-12-24] MEDS: HYDROcodone/Acetaminophen 5/325 mg Tablet PO PRN (21:43)
[2018-12-24] MEDS: cefTRIAXone\\ROCEPHIN 2 GM in Sodium Chloride 0.9% 100 ML IVPB SCH (21:45)
[2018-12-25] MEDS: Furosemide 40 MG/4 ML VIAL SLOW IVP SCH (05:37)
[2018-12-25 07:49] LABS: ALT (SGPT) 13 U/L (8-55); AST (SGOT) 44 U/L (5-34); Albumin 4.2 g/dL (3.5-5.0); Alkaline Phosphatase 48 U/L (40-150); Anion Gap 16 mmol/L (10-20); BUN (Urea Nitrogen) 22 mg/dL (9.8-20.1); Bilirubin, Total 8.2 mg/dL (0.2-1.2); Calc. Creatinine Clearance 59 mL/min (70-130); Carbon Dioxide 22 mmol/L (22-29); Chloride 100 mmol/L (98-107); Estimated GFR-MDRD 30; Glucose 103 mg/dL (70-105); Potassium 3.1 mmol/L (3.5-5.1); Protein, Total 7.2 g/dL (6.0-8.3); Sodium 135 mmol/L (136-145)
[2018-12-25] MEDS: Midodrine HCl 5 MG TAB PO SCH ×2 (08:45→19:47)
[2018-12-25] MEDS: Famotidine 20 MG TAB PO SCH ×2 (08:45→19:47)
--- NOTE | 2018-12-25 08:56 | PRG ---
DATE OF SERVICE: 12/25/2018 SUBJECTIVE: A 53-year-old obese female with CKD, liver cirrhosis, and diastolic heart failure, admitted with worsening generalized body swelling. The patient later developed acute kidney injury necessitating Nephrology consult. The patient has been diuresing well and reports improvement in swelling. No new complaints. Deny nausea, vomiting, or hematuria. OBJECTIVE: VITAL SIGNS: BP 103/69, pulse 81, respiratory rate 20, temperature 97.7, SpO2 90 on room air. GENERAL: Obese lady, in no obvious distress. Afebrile and acyanotic. HEENT: Normocephalic, atraumatic. Oral mucosa is moist. RESPIRATORY: Good air entry bilateral with no obvious crackle or rhonchi. CARDIAC: Regular rhythm and rate with normal heart sounds one and two. GI: Abdomen is enlarged, soft, and nontender with normal bowel sounds. Abdominal wall edema noted. EXTREMITIES: [id number] bilateral leg edema noted. No erythema. NEUROLOGICAL: Conscious and alert, oriented x3 with appropriate mental status. The patient is ambulant. DIAGNOSTIC DATA: BMP showed sodium 135, potassium 3.1, chloride 100, CO2 22, BUN 22, creatinine 1.79, and calcium 10. ASSESSMENT AND PLAN: 1. Acute kidney injury on chronic kidney disease 3: Most likely due to hemodynamic factors related to volume management and diuretic therapy. Hepatorenal syndrome is unlikely. Renal function is improving despite cautious diuretic therapy. Creatinine is down to 1.79. 2. Hypokalemia: Most likely related to Lasix therapy. Hypomagnesemia is a concern. We will get serum magnesium and replete with potassium chloride. 3. Anasarca/volume overload. Improving with diuretics. We will continue Lasix 80 mg b.i.d. We will increase spironolactone to 50 mg b.i.d. Plan will be to optimize spironolactone to maximum and possibly decrease the Lasix. 4. Liver cirrhosis: Decompensated. GI following. Job ID: [id number]
[2018-12-25] MEDS ORDERED: Potassium Chloride 20 MEQ TAB PO SCH (09:00)
[2018-12-25] MEDS: Spironolactone 25 MG TAB PO SCH ×2 (09:08→19:47)
--- NOTE | 2018-12-25 12:18 | PRG ---
DATE OF SERVICE: 12/25/2018 SUBJECTIVE: The patient reports she is feeling better. She is eating fairly well. She has not had a bowel movement either yesterday or today. OBJECTIVE: VITAL SIGNS: Temperature 98.0, pulse 75, respiratory rate 20, blood pressure 105/70. CHEST: Clear. CARDIOVASCULAR: Regular rate and rhythm. ABDOMEN: Soft, nontender without organomegaly or masses. She does have anasarca in the lower part of her abdomen. LABORATORY DATA: Shows sodium 135, potassium 3.1, BUN 22, creatinine 1.79, total bilirubin 8.2. ASSESSMENT: 1. Chronic kidney disease-seems to be improving. 2. Cirrhosis-stable. 3. Anasarca. RECOMMENDATIONS: 1. Continue present medical management. 2. Stable for discharge from GI standpoint. 3. Switch Lasix to oral. Job ID: [id number]
[2018-12-25] MEDS ORDERED: Milk Of Magnesia 30 ML UDCUP PO PRN (13:22)
[2018-12-25] MEDS: Furosemide 80 MG TAB PO SCH (13:45)
--- NOTE | 2018-12-25 14:21 | PDOC.PN ---
- Subjective Encounter Start Date: 12/25/18 Encounter Start Time: 10:00 Pt seen for followup re: anasarca. feels better. - Objective Resuscitation Status - Order Detail: 12/14/18 20:37 Resuscitation Status Routine Resuscitation Status: DNAR: NO Resuscitation Discussed with: Patient DIPAK Reviewed: Yes Vital Signs & Weight: Vital Signs (12 hours) Temp Pulse Resp BP Pulse Ox 12/25/18 11:00 98.0 F 75 20 105/70 92 L 12/25/18 08:49 94 L 12/25/18 07:57 97.7 F 81 20 103/69 90 L Weight Admit Weight 224 lb 12.8 oz Weight 225 lb 15.581 oz I&O: 12/24/18 12/25/18 12/26/18 06:59 06:59 06:59 Intake Total 1270 1080 Balance 1270 1080 Result Diagrams: 12/24/18 08:43 12/25/18 06:59 Additional Labs: Accuchecks 12/25/18 12/25/18 12/24/18 11:20 05:22 20:43 POC Glucose 110 120 H 122 H 12/24/18 16:45 POC Glucose 111 H Labs reviewed by me Phys Exam - Physical Examination Constitutional: NAD HEENT: moist MMs Neck: supple Respiratory: clear to auscultation bilateral Cardiovascular: RRR Gastrointestinal: soft, positive bowel sounds Musculoskeletal: edema present Neurological: moves all 4 limbs Psychiatric: normal affect Dx/Plan (1) Anasarca Code(s): R60.1 - GENERALIZED EDEMA Status: Acute Comment: on furosemide (2) Chronic diastolic heart failure Code(s): I50.32 - CHRONIC DIASTOLIC (CONGESTIVE) HEART FAILURE Status: Chronic Comment: stable (3) Cirrhosis of liver Code(s): K74.60 - UNSPECIFIED CIRRHOSIS OF LIVER Status: Chronic Qualifiers: Hepatic cirrhosis type: other cirrhosis Qualified Code(s): K74.69 - Other cirrhosis of liver Comment: stable (4) DM II (diabetes mellitus, type II), controlled Code(s): E11.9 - TYPE 2 DIABETES MELLITUS WITHOUT COMPLICATIONS Status: Chronic Qualifiers: Diabetes mellitus 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 Review of Systems - Review of Systems Cardiovascular: negative: chest pain, palpitations, orthopnea, paroxysmal nocturnal dyspnea, edema, light headedness Gastrointestinal: negative: Nausea, Vomiting, Abdominal Pain, Diarrhea, Constipation, Melena, Hematochezia - Medications/Allergies Allergies/Adverse Reactions: Allergies Allergy/AdvReac Type Severity Reaction Status Date / Time aspirin Allergy Unknown Nausea Verified 12/14/18 22:52 Medications: Current Medications Dextrose/Water (Dextrose 50%) 25 gm SLOW IVP PRN PRN PRN Reason: Hypoglycemia Famotidine (Pepcid) 20 mg PO BID [facility] Last Admin: 12/25/18 08:45 Dose: 20 mg Furosemide (Lasix) 80 mg PO 0900,1400 [facility] Last Admin: 12/25/18 13:45 Dose: 80 mg Glucagon (Glucagon) 1 mg IM PRN PRN PRN Reason: Hypoglycemia Dextrose/Water (D5w) 1,000 mls @ 0 mls/hr IV .Q0M PRN PRN Reason: Hypoglycemia Ceftriaxone Sodium 2 gm/ (Sodium Chloride) 100 mls @ 200 mls/hr IVPB 2100 [facility] Last Admin: 12/24/18 21:45 Dose: 100 mls Insulin Human Lispro (Humalog) 0 units SC .MILD SLIDING SCALE PRN PRN Reason: Mild Correctional Scale Insulin Human Lispro (Humalog) 0 units SC .BEDTIME SLIDING SC PRN PRN Reason: Bedtime Correctional Scale Magnesium Hydroxide (Milk Of Magnesium) 30 ml PO DAILYPRN PRN PRN Reason: Constipation Last Admin: 12/25/18 13:45 Dose: 30 ml Midodrine (Proamatine) 10 mg PO BID [facility] Last Admin: 12/25/18 08:45 Dose: 10 mg Ondansetron HCl (Zofran Odt) 4 mg PO Q6H PRN PRN Reason: Nausea/Vomiting Last Admin: 12/18/18 18:20 Dose: 4 mg Ondansetron HCl (Zofran) 4 mg IVP Q6H PRN PRN Reason: Nausea/Vomiting Last Admin: 12/21/18 13:16 Dose: 4 mg Senna/Docusate Sodium (Senokot S) 2 tab PO BID PRN PRN Reason: Constipation Last Admin: 12/25/18 09:04 Dose: 2 tab Sodium Chloride (Flush - Normal Saline) 10 ml IVF Q12HR [facility] Last Admin: 12/25/18 08:46 Dose: 10 ml Sodium Chloride (Flush - Normal Saline) 10 ml IVF PRN PRN PRN Reason: Saline Flush Last Admin: 12/17/18 02:47 Dose: 10 ml Spironolactone (Aldactone) 50 mg PO BID [facility] Last Admin: 12/25/18 09:08 Dose: 50 mg
[2018-12-25] MEDS: cefTRIAXone\\ROCEPHIN 2 GM in Sodium Chloride 0.9% 100 ML IVPB SCH (19:50)
[2018-12-26] MEDS: Spironolactone 25 MG TAB PO SCH (08:10)
[2018-12-26] MEDS: Furosemide 80 MG TAB PO SCH ×2 (08:10→13:43)
[2018-12-26] MEDS: Famotidine 20 MG TAB PO SCH (08:10)
[2018-12-26] MEDS: Midodrine HCl 5 MG TAB PO SCH (08:10)
[2018-12-26 08:46] VITALS: BP 106/72; TEMP 97.7
--- NOTE | 2018-12-26 11:58 | PRG ---
DATE OF SERVICE: 12/26/2018 SUBJECTIVE: The patient is feeling well. She is eating well. She is having no GI complaints. OBJECTIVE: VITAL SIGNS: Temperature 97.7, pulse 82, respiratory rate 18, blood pressure 106/72. CHEST: Clear. CARDIOVASCULAR: Regular rate and rhythm. ABDOMEN: Soft, protuberant with anasarca in the lower abdomen. EXTREMITIES: Show a large amount of anasarca bilaterally. LABORATORY DATA: No new laboratory was performed today. ASSESSMENT: 1. Anasarca - improving. 2. Cirrhosis, stable. 3. Renal insufficiency. RECOMMENDATIONS: 1. Stable for discharge from GI standpoint. 2. Continue present medical management with Lasix, Aldactone, and midodrine. Job ID: [id number]
--- NOTE | 2018-12-28 09:17 | DIS ---
DATE OF ADMISSION: 12/16/2018 DATE OF DISCHARGE: 12/26/2018 PRIMARY CARE PROVIDER: Idalia Modi PA-C DISCHARGE DIAGNOSES: 1. Acute on chronic stage III chronic renal failure. 2. Anasarca. 3. Diastolic heart failure. 4. Liver cirrhosis. 5. Hypokalemia. CONDITION OF THE PATIENT ON THE DAY OF DISCHARGE: Stable. I assessed Ms. Dinh on the day of discharge. She denies any chest pain or shortness of breath. Vital signs are stable. S1 and S2 are heard, regular. Lungs are clear to auscultation bilaterally. CONSULTATION DURING THIS HOSPITALIZATION: Gastroenterology, Dr. De Leon; Cardiology, Dr. Valentino; Nephrology, Dr. Lanza. DISCHARGE MEDICATIONS: Lasix 80 mg 2 times a day, midodrine 10 mg two times a day, spironolactone 50 mg 2 times a day. HOSPITAL COURSE: Ms. Dinh is a pleasant 53-year-old lady, who was admitted to [facility] on 12/14/2018, for the lower extremity and abdominal wall edema. Please refer to Dr. Malloy's history and physical note dated December 14, 2018 for further details. She was seen by Gastroenterology and Cardiology services. She was treated with intravenous diuretics. She was also seen by Nephrology Service for acute on chronic renal failure. 2D echocardiogram done on December 17, showed a trivial pericardial effusion, left ventricular ejection fraction of 50% to 55%, E/A flow reversal, suggestive of diastolic dysfunction, moderately enlarged right ventricular cavity, mildly dilated left atrium, mild mitral regurgitation, sclerotic aortic valve, mild to moderate tricuspid regurgitation, and moderate pulmonic regurgitation. She also had a Doppler of the lower extremities, which showed monophasic flow in the right posterior tibial artery with associated diminished velocity suggesting focal stenosis. She will need further workup as outpatient. She also had abdominal ultrasound on December 17, which showed a very small amount of free fluid within the right side of abdomen. She was started on empiric antibiotics because of abdominal pain. Final blood cultures came back negative. She also had CT scan of the abdomen and pelvis on December 18, 2018, which showed cirrhosis and ascites and small bilateral pleural effusions. She received intravenous albumin infusions for renal insufficiency. Kidney function improved. She also received diuretics because of ascites and probable diastolic heart failure. She continued to improve gradually. She has been cleared for discharge by Gastroenterology and Nephrology Services. She is being discharged home in a stable condition. On December 24, she had white count of 3000, hemoglobin of 7.9, and platelet count of 46,000. On December 25, she had sodium 135, potassium 3.1, blood urea nitrogen 22, and creatinine 1.79. Many thanks for allowing me to participate in your patient's care. Please feel free to contact me with any questions or concerns. DISCHARGE DESTINATION: Home. TOTAL AMOUNT OF TIME SPENT COORDINATING THIS DISCHARGE: 33 minutes. Job ID: [id number]
== END 2018-12-26 16:56 | disposition home or self-care (01) | DRG 432 ==
LOC: ERS 14:30 → 2SW 18:06 → OBSVTOIN 12-16 08:55 → 2NO 12-16 15:02 → T4-B 12-20 13:48
PROVIDERS: ADMIT Emergency Medicine; ATTEND Emergency Medicine
PROC: 30233N1 Transfusion of Nonautologous Red Blood Cells into Peripheral Vein, Percutaneous Approach (ICD-10-PCS; principal; 2018-12-17)
DX: K74.69 Other cirrhosis of liver (principal); I50.33 Acute on chronic diastolic (congestive) heart failure; K76.6 Portal hypertension; N17.9 Acute kidney failure, unspecified; D61.818 Other pancytopenia; I13.0 Hypertensive heart and chronic kidney disease with heart failure and stage 1 through stage 4 chronic kidney disease, or unspecified chronic kidney disease; R18.8 Other ascites; K75.81 Nonalcoholic steatohepatitis (NASH); E11.22 Type 2 diabetes mellitus with diabetic chronic kidney disease; N18.3 Chronic kidney disease, stage 3 (moderate); E87.6 Hypokalemia; Z66 Do not resuscitate; E66.01 Morbid (severe) obesity due to excess calories; I07.1 Rheumatic tricuspid insufficiency; R93.6 Abnormal findings on diagnostic imaging of limbs; Z68.39 Body mass index [BMI] 39.0-39.9, adult; Z88.8 Allergy status to other drugs, medicaments and biological substances
CPT/HCPCS: 36415; 36416; 36430; 71045; 74176; 76705; 80048; 80053; 81003; 81015; 82550; 82570; 83516; 83690; 83735; 83880; 84300; 84484; 85025; 86038; 86225; 86850; 86900; 86901; 87040; 87086; 93005; 93306; 93798; 93923; 94760; 96365; 96366; 96375; J0696; J1940; J2270; J2405; J3480; J7050; P9016; P9047; Q0162

== ENCOUNTER 2019-01-03 09:51 | Inpatient (IN) | payer OTHER ==
[2019-01-03 10:36] LABS: INR-International Normal Ratio 2.6; Prothrombin Time 28.2 SEC (12.0-14.7)
[2019-01-03 10:37] LABS: PTT 46.7 SEC (22.9-36.1)
[2019-01-03 10:39] LABS: #Basophils 0.1 thou/uL (0.0-0.2); #Eosinphils 0.1 thou/uL (0.0-0.7); #Lymphocytes 0.3 thou/uL (1.20-3.40); #Monocytes 0.5 thou/uL (0.11-0.59); %Basophils 1.2 % (0.0-1.0); %Eosinophils 1.1 % (0.0-10.0); %Lymphocytes 6.7 % (21.0-51.0); %Monocytes 9.6 % (0.0-10.0); %Neutrophils 81.4 % (42.0-75.0)
[2019-01-03 10:49] LABS: ALT (SGPT) 19 U/L (8-55); AST (SGOT) 74 U/L (5-34); Alkaline Phosphatase 55 U/L (40-150); Anion Gap 24 mmol/L (10-20); BUN (Urea Nitrogen) 46 mg/dL (9.8-20.1); Calc. Creatinine Clearance 0 mL/min (70-130); Calcium 10.4 mg/dL (7.8-10.44); Carbon Dioxide 16 mmol/L (22-29); Chloride 94 mmol/L (98-107); Estimated GFR-MDRD 12; Globulin 3.5 g/dL (2.4-3.5); Glucose 104 mg/dL (70-105); Potassium 4.8 mmol/L (3.5-5.1); Protein, Total 7.5 g/dL (6.0-8.3); Sodium 129 mmol/L (136-145)
[2019-01-03 10:58] LABS: Anisocytosis MODERATE=16-30 cells (100X) (0-5/hpf); Hemoglobin 8.2 g/dL (12.0-16.0); Hypochromia MODERATE=16-30 cells (100X) (0-5/hpf); MDiff Complete? YES; Mean Corpuscular HGB CONC 29.4 g/dL (32.0-36.0); Mean Corpuscular Hemoglobin 23.9 pg (27.0-31.0); Mean Corpuscular Volume 81.2 fL (78.0-98.0); Mean Platelet Volume 8.7 fL (7.4-10.4); Platelet Count 55 thou/uL (130-400); Platelet Morphology Comment Appears Decreased; Polychromasia MODERATE = 3-4 cells (100X) (0-2/hpf); RBC Distribution Width 24.8 % (11.5-14.5); Red Blood Cell (RBC) Count 3.44 mill/uL (4.20-5.40); Schistocytes SLIGHT = 2-5 cells (100X) (0-1/hpf)
[2019-01-03 11:06] LABS: CKMB 4.8 ng/mL (0-6.6)
--- NOTE | 2019-01-03 11:17 | RAD ---
CHEST ONE VIEW: HISTORY: Dyspnea. COMPARISON: Radiograph from 12/14/2018 FINDINGS: Heart size is enlarged. Blunting of the left lower costophrenic sulcus is similar. No pneumothorax. No focal air space consolidation. IMPRESSION: 1. Cardiomegaly, unchanged. 2. Mild blunting of the left lateral costophrenic sulcus may be sequela of scarring, increased peric ardial fat, and small effusion. POS: [facility]
[2019-01-03 14:15] LABS: CKMB 4.5 ng/mL (0-6.6)
[2019-01-03 14:30] LABS: Lactic Acid 3.1 mmol/L (0.5-2.2)
[2019-01-03] MEDS ORDERED: Albumin 25% 25 GM/100 ML BOT IVPB SCH (14:30)
[2019-01-03] MEDS ORDERED: Furosemide 20 MG/2 ML VIAL SLOW IVP SCH (14:30)
--- NOTE | 2019-01-03 14:38 | HP ---
PRIMARY CARE PROVIDER: Idalia Modi PA-C CHIEF COMPLAINT: Generalized weakness. HISTORY OF PRESENT ILLNESS: Ms. Dinh is a pleasant 53-year-old lady, who was seen at [facility] on January 03, 2019. She was hospitalized at this facility from December 16 through of this year for acute on chronic stage 3 renal failure, anasarca, diastolic heart failure, liver cirrhosis, and hypokalemia. She reports that she was doing well following discharge. She reports that she was mainly taking furosemide. She was not taking spironolactone because she was nauseous and vomiting. Three or four days following discharge, she started having shortness of breath. She reports shortness of breath with exertion. She also reports orthopnea. She denies any paroxysmal nocturnal dyspnea. She denies any fevers or chills. She reports occasional retrosternal chest discomfort, but is unable to describe it further. Then, she reports abdominal distention and discomfort. She also reports bilateral lower extremity edema, which worsened since her discharge. She presented to the emergency room because of ongoing generalized weakness. REVIEW OF SYSTEMS: All other systems reviewed and found to be negative. PAST MEDICAL HISTORY: Nonalcoholic steatohepatitis; liver cirrhosis; portal hypertension; pancytopenia; diastolic dysfunction; positive hepatitis C antibody with negative RNA on the blood test; diabetes mellitus type 2, diet controlled; hypertension; morbid obesity; chronic kidney disease, stage 3. PAST SURGICAL HISTORY: section x3, liver biopsy. SOCIAL HISTORY: The patient denies tobacco use, alcohol use, or recreational drug use. FAMILY HISTORY: Father with diabetes mellitus and lung cancer. Mother with diabetes, cervical, and liver cancer. ALLERGIES: ASPIRIN. CURRENT MEDICATIONS: 1. Furosemide 80 mg 2 times a day. 2. Spironolactone 50 mg 2 times a day. 3. Midodrine 10 mg 2 times a day. PHYSICAL EXAMINATION: GENERAL: On examination, Ms. Dinh is awake and alert, not in acute distress. VITAL SIGNS: Blood pressure is 119/83, pulse 85, respiratory rate 20, and oxygen saturation 93% on room air. She is afebrile. She is obese. EYES: She has scleral icterus, no conjunctival pallor. ENT: Moist mucosal membranes. No oropharyngeal erythema or exudates. NECK: Supple, nontender, trachea is midline. RESPIRATORY: Accessory muscles of breathing are not active. Chest wall movements are symmetric bilaterally. She has bibasilar crackles. CARDIOVASCULAR: S1 and S2 are heard, regular. Peripheral pulses palpable. NEUROLOGIC: Cranial nerves 2 through 12 are intact, deep tendon reflexes 2+. MUSCULOSKELETAL: Power is 5/5 in all four extremities. SKIN: She has spider nevi. She also has bilateral lower extremity edema. LYMPHATIC: No cervical lymphadenopathy. ABDOMEN: Distended, nontender, bowel sounds are heard. PSYCHIATRIC: Normal mood, normal affect, the patient is oriented to person, place, and time. LABORATORY DATA AND DIAGNOSTIC STUDIES: Ms. Dinh's labs and investigations were reviewed. I reviewed her electrocardiogram, which shows normal sinus rhythm, no ST changes to suggest an acute coronary syndrome. I also reviewed her chest x-ray, which shows cardiomegaly and left-sided pleural effusion, no pulmonary infiltrates. She has white count of 5000, normocytic anemia with hemoglobin 8.2, thrombocytopenia with platelet count of 55,000. INR of 2.6, up from 1.6 on November 08, 2018, decreased sodium of 129, normal potassium, decreased carbon dioxide of 16, elevated blood urea nitrogen of 46, elevated creatinine of 3.92, last known creatinine 1.79 on October 24, 2019, elevated lactic acid level of 3.9. Elevated total bilirubin of 18, up from 8.2 on December 25, 2018. Indeterminate troponin-I of 0.068, elevated BNP of 1357, and normal albumin of 4.0. ASSESSMENT AND PLAN: Ms. Dinh is a pleasant 53-year-old lady, who was seen at [facility] on January 03, 2019. Her problem list includes: 1. Generalized weakness: Etiology is unclear at this time, could be multifactorial. Given her worsening renal function and anasarca, the patient will be admitted to the hospital for further management. PT, OT evaluations will be requested. 2. Shortness of breath: Likely secondary to volume overload and acute exacerbation of chronic diastolic congestive heart failure, ACC AHA class C, and NYHA class 3. She will be started on diuretics. Her creatinine will be followed, since there has been a worsening of her creatinine in the last week. 3. Acute on chronic stage 3 kidney disease: She will be started on albumin infusions. Gentle diuresis for heart failure and monitoring her creatinine level. 4. Liver cirrhosis: We will consult GI Service for help with further management. She is reportedly being referred to [place] for further management. 5. Hyponatremia: Likely secondary to cirrhosis, we will recheck. 6. Anion gap metabolic acidosis: Most likely secondary to uremia. We will also check urine studies to rule out urinary tract infection. 7. We will also check 2D echocardiogram to rule out cardiac causes for shortness of breath. Many thanks for allowing me to participate in your patient's care. Please feel free to contact me with any questions or concerns. LEVEL OF RISK: High. LEVEL OF COMPLEXITY: High. Job ID: [id number]
[2019-01-03 17:44] LABS: CKMB 5.1 ng/mL (0-6.6)
[2019-01-03 18:45] LABS: Acetaminophen Less than 6.0 mcg/mL (10.0-30.0)
--- NOTE | 2019-01-03 18:48 | CON ---
DATE OF CONSULTATION: HISTORY OF PRESENT ILLNESS: Ms. Dinh is a 53-year-old female, who has a history of cirrhosis - nonalcoholic steatohepatitis and we are being consulted for acute kidney injury. Please note that a few weeks ago the patient was seen for an acute kidney injury that was hemodynamically-mediated renal dysfunction. The patient has been complaining of more abdominal swelling and leg edema. REVIEW OF SYSTEMS: No chest pain or shortness of breath. Positive for generalized malaise. Positive for abdominal swelling. Positive for leg edema. No nausea. No vomiting. No diarrhea. No constipation. No productive cough. No fever or chills. HOME MEDICATIONS: Include the following; 1. Spironolactone 50 mg p.o. b.i.d. 2. Midodrine 10 mg p.o. b.i.d. 3. Furosemide 80 mg b.i.d. PAST MEDICAL HISTORY: Includes the following; 1. Cirrhosis from fatty liver. 2. Acute kidney injury. 3. Chronic renal failure. 4. History of coronary artery disease. 5. History of portal hypertension. 6. Status post CHF from diastolic dysfunction. 7. Type 2 diabetes mellitus. 8. Morbid obesity. 9. Longstanding hypertension. 10. Pancytopenia. PAST SURGICAL HISTORY: 1. Status post liver biopsy. 2. Status post upper and lower GI endoscopy. SOCIAL HISTORY: The patient lives in [place], , 3 children. No smoking. No alcohol. Status post blood transfusion. Education, 9th grade. 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 No IV drug abuse. FAMILY HISTORY: Positive for family history of ESRD - brother, on dialysis. ALLERGIES: ASPIRIN. TRAUMA: None. IMMUNIZATION: Up-to-date. HOSPITALIZATIONS: Please see past medical history. PHYSICAL EXAMINATION: VITAL SIGNS: Blood pressure 109/53, heart rate 87 respiratory rate 20, temperature 97.8, and pulse ox 91%. GENERAL: Awake, alert, comfortable, obese, not in overt distress. SKIN: Adequate turgor. HEENT: Pinkish, slightly pale conjunctivae. No neck mass. No carotid bruits. No JVD. Icteric sclerae. LUNGS: Decreased breath sounds heart. NORMAL: Sinus rhythm. No murmur. No gallops. No rubs. ABDOMEN: Globular, soft, nontender. No masses. Positive for ascites. EXTREMITIES: Positive for edema. LABORATORY DATA: Chest x-ray on 01/03/2018 showed blunting of the left lateral costophrenic sulcus with small effusion. Laboratories of 01/03/2019; white count 5, hemoglobin 8.2, and hematocrit 27.9. Sodium 129, potassium 4.8, chloride 94, carbon dioxide 16, BUN 46, creatinine 3.92, AST 74, ALT 19, total bilirubin is 18, and troponin-I 0.059. ASSESSMENT AND PLAN: 1. Acute kidney injury - again, I suspect possible hemodynamically-mediated renal dysfunction. Her discharge creatinine was noted at 1.79. She was discharged on diuretics. I would hold off the spironolactone. However, due to complaints of leg edema, we have adjusted diuretics to 20 mg IV q.12. At the same time, the patient will be receiving albumin 25 g IV q.6 for the next several days. 2. Cirrhosis secondary to fatty liver - supportive care. GI is following. Continue to optimize hemodynamics with this patient. The concern is whether this patient may have some degree of right heart failure, causing some degree of passive liver congestion. 3. Anemia. Continue to observe. P.r.n. blood transfusion. 4. Metabolic acidosis. Start sodium bicarbonate 325 mg p.o. t.i.d. Job ID: [id number]
--- NOTE | 2019-01-03 19:12 | CON ---
DATE OF CONSULTATION: HISTORY OF PRESENT ILLNESS: Lyly Dinh is an unfortunate 53-year-old female with chronic kidney disease, cirrhosis, anasarca, and diastolic heart failure. She was just recently admitted from December 16 to December 26 and treated with intravenous diuretics. Her ejection fraction at that time was 50% to 55% with evidence for diastolic dysfunction, aortic valvular sclerosis, mild mitral regurgitation, mild to moderate tricuspid regurgitation, and moderate pulmonic regurgitation. She was taking furosemide at home, but did not take spironolactone because it seemed to cause her to have nausea and vomiting. Several days after discharge, she started having increasing edema, increasing shortness of breath and some retrosternal chest discomfort. She continued to have increasing weakness and came to the emergency room. PAST MEDICAL HISTORY: Nonalcoholic steatohepatitis, cirrhosis, portal hypertension, diastolic heart failure, pancytopenia, hepatitis C, diabetes, hypertension, obesity, chronic kidney disease. PAST SURGICAL HISTORY: , liver biopsy. MEDICATIONS: 1. Furosemide 80 mg b.i.d. 2. Midodrine 10 b.i.d. 3. Spironolactone 50 b.i.d. ALLERGIES: ASPIRIN-caused shakiness and a rash. SOCIAL HISTORY: She does not smoke or drink. REVIEW OF SYSTEMS: A 10-point review of systems is otherwise unremarkable. PHYSICAL EXAMINATION: VITAL SIGNS: Blood pressure 109/53, pulse of 87, O2 saturation 91 on room air. HEENT: PERRL. NECK: Supple. CHEST: Reveals crackles at the bases. CARDIOVASCULAR: S1, S2 normal without any S3 or S4. There is a 1/6 systolic murmur in the aortic area. ABDOMEN: Obese, normal bowel sounds with positive fluid wave. EXTREMITIES: Reveal 2 to 3+ pretibial edema. NEUROLOGIC: Grossly intact. SKIN: Warm and dry. LABORATORY DATA: EKG revealed normal sinus rhythm with sinus arrhythmia, left axis deviation, low voltage, incomplete right bundle-branch block. Sodium 129, potassium 4.8, chloride 94, carbon dioxide 16, BUN 46, creatinine 3.29. AST 74, ALT 19. Troponin I 0.068. BNP 1357.5. Chest x-ray revealed cardiomegaly, possible small effusion. IMPRESSION: 1. Anasarca secondary to chronic diastolic heart failure, chronic kidney disease and cirrhosis. 2. Chronic kidney disease. 3. Cirrhosis. 4. Hyponatremia. PLAN: The patient will continue to be diuresed. She states that attempts are being made to refer to a rubber and pounder in [place]. Echocardiogram will be performed to reassess left ventricular function, although an echocardiogram two weeks ago revealed an ejection fraction of 50% to 55%. Job ID: [id number] MTDD
--- NOTE | 2019-01-03 19:49 | CON ---
DATE OF CONSULTATION: 01/03/2019 REASON FOR CONSULT: History of cirrhosis. HISTORY OF PRESENT ILLNESS: Ms. Dinh is a 53-year-old female who was recently in the hospital just this last month. She was seen by us in June with a new diagnosis of cirrhosis. This last month, she was in with severe anasarca, edema, and shortness of breath, but interestingly did not have any ascites. She was felt to have diastolic dysfunction. She did not tolerate diuresis well, was hypotensive, started on nadolol and diuretics. Ultimately with albumin and blood transfuse, and diuresis, we were able to get her down to 227 pounds when discharged on the . She had come in at about 2:20 to 2:30 that admission. When she was discharged on the , she went home on Lasix 80 mg b.i.d., midodrine 10 mg b.i.d., and Aldactone 50 mg 2 times a day. Today, she returned to the emergency room with complaints of worsening shortness of breath and weakness and lower extremity swelling and abdominal swelling and tightness. Apparently, at home, she is taking only the furosemide not Aldactone. She has had some nausea, vomiting. About 4 or 5 days ago she had been having general weakness, worsening shortness of breath. No orthopnea. Overall these are similar symptoms to last admission, but she feels that all her swelling is worse. REVIEW OF SYSTEMS: Negative for fever, chills, cough, dysuria, frequency, urgency, melena, hematochezia, or hematemesis. PAST MEDICAL HISTORY: Nonalcoholic steatohepatitis with cirrhosis, hypertension, pancytopenia but no ascites, diastolic dysfunction, hepatitis C antibody positive, hepatitis C RNA negative, type 2 diabetes, hypertension, morbid obesity, chronic kidney disease stage 3. PAST SURGICAL HISTORY: x3. No previous liver biopsy. SOCIAL HISTORY: The patient denies smoking, drinking, using drugs. FAMILY HISTORY: Father diabetes and lung cancer. Mother had diabetes, cervical and liver cancer. ALLERGIES: ASPIRIN. MEDICATIONS: 1. Furosemide 80 mg 2 times a day. 2. Losartan 50 mg two times a day. Should have been 2 two times a day. 3. Midodrine 10 mg 2 daily. Present medications: 1. Furosemide 20 IV, has been discontinued now. She had been given dose of albumin. Cardiology and Nephrology be consulted. PHYSICAL EXAMINATION: VITAL SIGNS: Temperature is 97.8, pulse 87, blood pressure 109/53, O2 saturation 100% on room air. GENERAL: The patient is in bed. She is in a lot of distress. She is short of breath. She has a little bit of a cough. NECK: She has JVD. LUNGS: Decreased breath sounds bilaterally. HEART: Regular rhythm. ABDOMEN: Protuberant. There is anasarca in the tissue of the upper to the lower abdomen and legs. NEUROLOGIC: She is alert and oriented. Reflexes are normal. SKIN: Within normal limits. LABORATORY DATA: White count is 5, hemoglobin 8.2, platelet count 55,000. INR is 2.6. Troponin 0.068. Lactic acid 3. Sodium 129, it was 135 at last admission, potassium 4.8, chloride 94, bicarb 19, anion gap 24, BUN is 46, creatinine is 3.9, this is up from 1.79 on last admission. Bilirubin is 18 from 8.2. AST is 74, ALT is 19, alkaline phosphatase is 55, AFP was 63 in 06/2018. Chest x-ray showed cardiomegaly, it shows some pericardial effusion. ASSESSMENT: This is a 53-year-old who has some cirrhosis. She has had no ascites even this past admission. Her main problem has been diffuse body anasarca and inability to tolerate diuresis with a very low blood pressure. She was placed on Aldactone and Lasix. Last admission, she was gently diuresed about 10-15 pounds over 10 days and her renal function improved by using midodrine and albumin and blood. At home, she has decompensated again. Her bilirubin is up to 18 from 7 and she is in renal failure. She denies taking Tylenol or using any drugs or drinking alcohol. RECOMMENDATIONS: I think we will need to consult Nephrology. She may need dialysis. We will start her on albumin and Lasix. Cardiology needs to be involved, although there is not much they can do, it seems that she has a large component of right heart failure. The massive amount of anasarca with lack of any ascites goes against cirrhosis as being the cause of that. No UA has been done. Last admission, she had minimal proteinuria. I would recheck this though. With her INR low and we would go ahead and give her some FFP as a volume feed adviser to see if we can help with her perfusion and possible diuresis. We will check Tylenol levels. Job ID: [id number]
[2019-01-03] MEDS ORDERED: Diabetic Tussin DM 5 ML UDCUP PO PRN (19:52)
[2019-01-03] MEDS: Sodium Bicarbonate Tab 325 MG TAB PO SCH (21:02)
[2019-01-03] MEDS: Albumin 25% 25 GM/100 ML BOT IVPB SCH ×2 (21:54→22:00)
[2019-01-03] MEDS: Polyethylene Glycol 3350 17 GM Packet PO PRN (22:52)
[2019-01-04] MEDS: Furosemide 20 MG/2 ML VIAL SLOW IVP SCH ×2 (05:41→14:05)
[2019-01-04 06:34] LABS: ALT (SGPT) 14 U/L (8-55); AST (SGOT) 44 U/L (5-34); Albumin 4.1 g/dL (3.5-5.0); Alkaline Phosphatase 44 U/L (40-150); Anion Gap 21 mmol/L (10-20); BUN (Urea Nitrogen) 38 mg/dL (9.8-20.1); Bilirubin, Total 17.3 mg/dL (0.2-1.2); Calc. Creatinine Clearance 28 mL/min (70-130); Calcium 10.4 mg/dL (7.8-10.44); Carbon Dioxide 17 mmol/L (22-29); Chloride 96 mmol/L (98-107); Estimated GFR-MDRD 12; Glucose 106 mg/dL (70-105); Potassium 4.1 mmol/L (3.5-5.1); Protein, Total 7.1 g/dL (6.0-8.3); Sodium 130 mmol/L (136-145)
[2019-01-04] MEDS: Sodium Bicarbonate Tab 325 MG TAB PO SCH ×3 (08:43→19:17)
--- NOTE | 2019-01-04 10:31 | PRG ---
DATE OF SERVICE: 01/04/2019 SUBJECTIVE: Ms. Dinh is a 53-year-old female with known history of cirrhosis and was readmitted due to progressive lethargy and worsening renal dysfunction. Her initial creatinine on admission was noted to be at 3.92. She was started back on albumin infusion. She was placed on a lower dose of diuretics. Case discussed with Dr. Thompson. He mentions that her ascites is actually minimal. There is also question that the patient may have some degree of CHF. The patient is still complaining of diffuse myalgia. No complaints of shortness of breath. OBJECTIVE: VITAL SIGNS: Blood pressure is 102/60, heart rate 74, respiratory rate 18, and pulse ox 93%. GENERAL: Awake, alert, comfortable, not in overt distress. SKIN: Adequate turgor. HEENT: She has slightly pale conjunctivae. Anicteric sclerae. No neck mass. No carotid bruits. No JVD. CHEST: No deformities. LUNGS: Clear breath sounds. HEART: Normal sinus rhythm. No murmur. No gallops. No rubs. ABDOMEN: Globular, soft, nontender. No masses. EXTREMITIES: Trace edema. Positive for dressing on both feet. MEDICATIONS: Medications of January 04, 2019, were reviewed. LABORATORY DATA: Laboratories of January 03, 2019; hemoglobin is 8.2. Sodium 130, potassium 4.1, chloride 96, carbon dioxide 17, BUN 38, creatinine 3.91, glucose 106, calcium 10.4, total bilirubin is 17.3, AST 44, ALT 14, albumin 4.1. ASSESSMENT AND PLAN: 1. Acute kidney injury - hemodynamically-mediated renal dysfunction. Diuretics have been adjusted downwards. She has been started on albumin infusion. Continue to optimize hemodynamics. There is no indication for any dialytic intervention. 2. Cirrhosis/encephalopathy - supportive care. GI is following. This patient is to be evaluated in the near future in [place] for possible liver transplantation. 3. Diastolic dysfunction/congestive heart failure - last cardiac echo was normal. Cardiology is following. 4. We will recheck basic metabolic panel, CBC in a.m. Job ID: [id number]
[2019-01-04] MEDS ORDERED: Senokot S 8.6-50 MG TAB PO SCH (13:00)
[2019-01-04] MEDS ORDERED: Fleet Enema 133 ML BOT FS SCH (13:00)
[2019-01-04] MEDS: traMADol HCl 50 MG TAB PO PRN ×2 (14:25→19:16)
--- NOTE | 2019-01-04 17:31 | PDOC.PN ---
- Subjective Encounter Start Date: 01/04/19 Encounter Start Time: 13:05 - Objective Resuscitation Status - Order Detail: 01/04/19 13:32 Resuscitation Status Routine Resuscitation Status: DNAR: NO Resuscitation Discussed with: pt and pt dtr Sommer Additional comments: Pt stated that she would not want CPR, intubation, cardioversion, cardiac meds if her heart was to stop. Vital Signs & Weight: Vital Signs (12 hours) Temp Pulse Resp BP Pulse Ox 01/04/19 16:00 97.8 F 78 18 107/56 L 94 L 01/04/19 12:19 97.5 F L 82 18 116/58 L 95 01/04/19 07:50 74 18 102/60 93 L 01/04/19 07:44 93 L Weight Admit Weight 236 lb 11.2 oz Weight 233 lb 12.8 oz I&O: 01/03/19 01/04/19 01/05/19 06:59 06:59 06:59 Intake Total 0 Balance 0 Result Diagrams: 01/03/19 10:12 01/04/19 05:46 Additional Labs: Accuchecks 01/04/19 01/04/19 01/03/19 10:25 04:56 20:19 POC Glucose 108 102 113 H Phys Exam - Physical Examination Generally uncomfortable. Respiratory: no rhonchi Scattered rales and diminished at bases. Mild tachypnea. Cardiovascular: RRR, no significant murmur Distended and generally TTP. Decreased bowel sounds. Pitting edema of lower pannus. 2+ pitting edema. Psychiatric: normal affect, A&O x 3 Skin: no rash Dx/Plan (1) COLEMAN (nonalcoholic steatohepatitis) Code(s): K75.81 - NONALCOHOLIC STEATOHEPATITIS (COLEMAN) Status: Acute (2) Anasarca Code(s): R60.1 - GENERALIZED EDEMA Status: Acute Comment: on furosemide (3) Cirrhosis of liver Code(s): K74.60 - UNSPECIFIED CIRRHOSIS OF LIVER Status: Chronic Qualifiers: Hepatic cirrhosis type: other cirrhosis Qualified Code(s): K74.69 - Other cirrhosis of liver Comment: stable (4) DM II (diabetes mellitus, type II), controlled Code(s): E11.9 - TYPE 2 DIABETES MELLITUS WITHOUT COMPLICATIONS Status: Chronic Qualifiers: Diabetes mellitus half-way insulin use: without workers compensation claims supervisor use Diabetes mellitus complication status: with unspecified complications Qualified Code(s) : E11.8 - Type 2 diabetes mellitus with unspecified complications Comment: controlled (5) HTN (hypertension) Code(s): I10 - ESSENTIAL (PRIMARY) HYPERTENSION Status: Chronic Qualifiers: Hypertension type: essential hypertension Qualified Code(s): I10 - Essential (primary) hypertension Comment: controlled (6) Obesity Code(s): E66.9 - OBESITY, UNSPECIFIED Status: Chronic Qualifiers: Obesity classification: adult class 3 (BMI >= 40) Serious obesity comorbidity presence: with serious comorbidity Body mass index: BMI 40.0-44.9 (7) Diastolic CHF, acute on chronic Code(s): I50.33 - ACUTE ON CHRONIC DIASTOLIC (CONGESTIVE) HEART FAILURE Status : Resolved (8) Acute worsening of stage 3 chronic kidney disease Code(s): N18.3 - CHRONIC KIDNEY DISEASE, STAGE 3 (MODERATE) Status: Acute (9) Hyponatremia Code(s): E87.1 - HYPO-OSMOLALITY AND HYPONATREMIA Status: Acute - Plan * Unfortunate triad of liver cirrohosis, acute on chronic renal failure and diastolic heart failure resulting in severe anasarce and apparent ascites. * Trying to diurese while managing borderline low blood pressure and renal dysfunction. * Albumin and lasix. * Add Tramadol for abdominal pain. * DNAR after her meeting with Palliative Care Team. * Notified this afternoon that she has not voided all day. Bladder scan 300- 350. Will give additional dose of Lasix 40 now. Not responding to 20 mg at all. * Long discussion with the patient and her family. Prognosis if very guarded at present. * Patient has been referred to transplant center in [place], but has missed their call three times and has not made an appt yet.
[2019-01-04 18:04] LABS: Bilirubin Moderate (Negative); Clarity CLOUDY (Clear); Glucose, Urine (Dipstick) Negative (Negative); Leukocyte Small (Negative); Nitrite Negative (Negative); Protein, Urine (Dipstick) 100 mg/dL (Neg-Trace); Specific Gravity, Urine 1.014 (1.002-1.036)
[2019-01-04 18:06] LABS: Bacteria/HPF None Seen HPF (None Seen); Hyaline Casts/LPF 4-6 HYALINE CAST LPF (0-3 Hyaline)
[2019-01-04 18:09] LABS: Yeast-AUWi Flag 73.5 (0-25.0)
[2019-01-04 18:22] LABS: Blood, Urine Large (Negative)
[2019-01-04 18:23] LABS: Renal Epithelial 0-3 HPF (0-3); Transitional Epithelial 0-3 HPF (0-3); Yeast-All Forms None Seen HPF (None Seen)
[2019-01-04 18:24] LABS: Crystals/HPF 1+ AMORPH URATES HPF (Negative)
[2019-01-04 18:25] LABS: Urine Culture Reflex No No
[2019-01-04] MEDS ORDERED: Furosemide 40 MG/4 ML VIAL SLOW IVP SCH (18:45)
[2019-01-04] MEDS: Ondansetron PF 4 MG/2 ML Vial SLOW IVP PRN (20:11)
[2019-01-05] MEDS: Furosemide 20 MG/2 ML VIAL SLOW IVP SCH ×2 (05:32→15:32)
[2019-01-05 05:36] LABS: #Eosinphils 0.1 thou/uL (0.0-0.7); #Lymphocytes 0.3 thou/uL (1.20-3.40); #Monocytes 0.5 thou/uL (0.11-0.59); %Basophils 0.2 % (0.0-1.0); %Eosinophils 1.9 % (0.0-10.0); %Lymphocytes 7.1 % (21.0-51.0); %Monocytes 11.8 % (0.0-10.0); %Neutrophils 79.1 % (42.0-75.0); Hemoglobin 7.7 g/dL (12.0-16.0); Mean Corpuscular HGB CONC 29.6 g/dL (32.0-36.0); Mean Corpuscular Hemoglobin 24.8 pg (27.0-31.0); Mean Corpuscular Volume 83.8 fL (78.0-98.0); Mean Platelet Volume 9.5 fL (7.4-10.4); Platelet Count 41 thou/uL (130-400); RBC Distribution Width 25.3 % (11.5-14.5); White Blood Cell (WBC) Count 3.8 thou/uL (4.8-10.8)
[2019-01-05 05:59] LABS: Anion Gap 20 mmol/L (10-20); BUN (Urea Nitrogen) 51 mg/dL (9.8-20.1); Calc. Creatinine Clearance 30 mL/min (70-130); Calcium 10.7 mg/dL (7.8-10.44); Carbon Dioxide 19 mmol/L (22-29); Chloride 96 mmol/L (98-107); Estimated GFR-MDRD 13; Glucose 95 mg/dL (70-105); Potassium 4.2 mmol/L (3.5-5.1); Sodium 131 mmol/L (136-145)
--- NOTE | 2019-01-05 08:30 | PRG ---
DATE OF SERVICE: 01/05/2019 SUBJECTIVE: Ms. Dinh is a 53-year-old female, who has a known history of cirrhosis from a fatty liver and seen by the Renal Service for her acute kidney injury. I did suspect that the patient may have simply hemodynamically-mediated renal dysfunction. She has been started on albumin infusion. Please note that she was on a big dose of diuretics at home. We have adjusted the diuretics downward. She does complain of abdominal fullness and leg edema. This morning, she is feeling a little better. She is scheduled for an ultrasound of the abdomen today. No other complaints. Denies any chest pain or shortness of breath. OBJECTIVE: VITAL SIGNS: Blood pressure 105/67, heart rate 80, respiratory rate 17, temperature 97.8, and pulse ox 91%. GENERAL EXAM: Awake, alert, supine, obese, not in distress. SKIN: Adequate turgor. HEENT: She has slightly pale conjunctivae. Anicteric sclerae. NECK: No neck mass. No carotid bruits. No JVD. CHEST: No deformities. LUNGS: Decreased breath sounds. No wheezing. HEART: Normal sinus rhythm. No murmur. No gallops. No rubs. ABDOMEN: Globular, soft, nontender. No masses. EXTREMITIES: Positive for edema. MEDICATIONS: Medications of January 05, 2019, reviewed. LABORATORY DATA: Laboratories of January 05, 2019, white count 3.8, hemoglobin 7.7. Sodium 131, potassium 4.2, chloride 96, carbon dioxide 19, BUN 51, creatinine 3.78, glucose 95, and calcium 10.7. Urinalysis of January 04, 2019. There is protein. No pigmented granular casts noted. RBCs 7 to 10. ASSESSMENT AND PLAN: 1. Acute kidney injury - consider hemodynamically-mediated renal dysfunction. The patient was on a large amount of diuretics at home. Lasix has been adjusted downwards. In addition, spironolactone has been discontinued. Renal function is stabilizing. 2. There is no indication for any dialytic intervention with this patient. Continue albumin infusion and low-dose diuretics. 3. Cirrhosis/fatty liver - supportive care. GI is following. The patient is supposed to be eventually evaluated in [place] for liver transplantation. 4. Anemia. Continue to observe p.r.n. blood transfusion. Overall, agree with current management. Overall, prognosis remains guarded. Job ID: [id number] [facility]
--- NOTE | 2019-01-05 08:47 | ULT ---
HEPATIC DOPPLER ULTRASOUND, with Grayy Scale and Doppler Color Flow Imaging: INDICATIONS: Cirrhosis. Elevated bilirubin. FINDINGS: There is a cirrhotic morphology to the liver with surrounding, perihepatic ascites. The spleen is pr ominent, measuring greater than 14 cm in length, as demonstrated. The gallbladder wall is thick and measures 1 cm. There are internal echoes in the gallbladder, indicating sludge. Gallbladder wall ed ashley/pericholecystic edema is seen. The common duct is normal, measuring 5 mm. Incidental note of ri ght pleural fluid. Marked pulsatility of the portal, hepatic and splenic waveforms is demonstrated. This does limit ass essment of evaluating direction of flow, and limits assessment of arterial waveforms. There is no ob vious thrombosis. IMPRESSION: 1. Cirrhotic morphology of the liver. 2. Ascites. 3. Prominent spleen, which may relate to portal hypertension. 4. Abnormal gallbladder, which may be on the basis of liver disease. Correlate clinically to exclud e evidence of cholecystitis. POS: JOSE
[2019-01-05] MEDS: Bisacodyl 10 MG SUPP PR PRN (09:01)
[2019-01-05] MEDS: Ondansetron PF 4 MG/2 ML Vial SLOW IVP PRN ×3 (09:02→21:48)
[2019-01-05] MEDS: traMADol HCl 50 MG TAB PO PRN ×2 (09:02→15:37)
[2019-01-05] MEDS: Sodium Bicarbonate Tab 325 MG TAB PO SCH ×3 (09:38→20:16)
[2019-01-05] MEDS: Senokot S 8.6-50 MG TAB PO SCH (09:38)
[2019-01-05] MEDS: Albumin 25% 25 GM/100 ML BOT IVPB SCH ×3 (09:39→20:16)
[2019-01-05] MEDS: Fleet Enema 133 ML BOT PR PRN ×2 (15:32→23:52)
--- NOTE | 2019-01-05 23:00 | PDOC.PN ---
- Subjective Encounter Start Date: 01/05/19 Encounter Start Time: 10:50 Reports problems with constipation. Did not improve with enema or Miralax. - Objective Resuscitation Status - Order Detail: 01/04/19 13:32 Resuscitation Status Routine Resuscitation Status: DNAR: NO Resuscitation Discussed with: pt and pt dtr Sommer Additional comments: Pt stated that she would not want CPR, intubation, cardioversion, cardiac meds if her heart was to stop. Vital Signs & Weight: Vital Signs (12 hours) Temp Pulse Resp BP Pulse Ox 01/05/19 19:30 97.6 F 88 18 123/70 95 01/05/19 16:30 97.5 F L 88 22 H 128/66 97 Weight Admit Weight 236 lb 11.2 oz Weight 241 lb 8 oz I&O: 01/04/19 01/05/19 01/06/19 06:59 06:59 06:59 Intake Total 0 2800 720 Output Total 300 Balance 0 2500 720 Result Diagrams: 01/05/19 04:52 01/05/19 04:52 Additional Labs: Accuchecks 01/05/19 01/05/19 01/05/19 20:57 17:21 10:45 POC Glucose 110 98 99 01/05/19 05:40 POC Glucose 97 Phys Exam - Physical Examination Constitutional: NAD Jaundice Icteric sclera. Respiratory: no wheezing, no rales Cardiovascular: RRR, no significant murmur Gastrointestinal: soft Mildly, diffusely tender. Pitting edema on the abdomen. 3+ pitting edema. Psychiatric: normal affect, A&O x 3 Skin: no rash Dx/Plan (1) COLEMAN (nonalcoholic steatohepatitis) Code(s): K75.81 - NONALCOHOLIC STEATOHEPATITIS (COLEMAN) Status: Acute (2) Anasarca Code(s): R60.1 - GENERALIZED EDEMA Status: Acute Comment: on furosemide (3) Cirrhosis of liver Code(s): K74.60 - UNSPECIFIED CIRRHOSIS OF LIVER Status: Chronic Qualifiers: Hepatic cirrhosis type: other cirrhosis Qualified Code(s): K74.69 - Other cirrhosis of liver Comment: stable (4) DM II (diabetes mellitus, type II), controlled Code(s): E11.9 - TYPE 2 DIABETES MELLITUS WITHOUT COMPLICATIONS Status: Chronic Qualifiers: Diabetes mellitus care home insulin use: without care home use Diabetes mellitus complication status: with unspecified complications Qualified Code(s) : E11.8 - Type 2 diabetes mellitus with unspecified complications Comment: controlled (5) HTN (hypertension) Code(s): I10 - ESSENTIAL (PRIMARY) HYPERTENSION Status: Chronic Qualifiers: Hypertension type: essential hypertension Qualified Code(s): I10 - Essential (primary) hypertension Comment: controlled (6) Obesity Code(s): E66.9 - OBESITY, UNSPECIFIED Status: Chronic Qualifiers: Obesity classification: adult class 3 (BMI >= 40) Serious obesity comorbidity presence: with serious comorbidity Body mass index: BMI 40.0-44.9 (7) Diastolic CHF, acute on chronic Code(s): I50.33 - ACUTE ON CHRONIC DIASTOLIC (CONGESTIVE) HEART FAILURE Status : Resolved (8) Acute worsening of stage 3 chronic kidney disease Code(s): N18.3 - CHRONIC KIDNEY DISEASE, STAGE 3 (MODERATE) Status: Acute (9) Hyponatremia Code(s): E87.1 - HYPO-OSMOLALITY AND HYPONATREMIA Status: Acute (10) Constipation Code(s): K59.00 - CONSTIPATION, UNSPECIFIED Status: Acute - Plan * Difficult situation in a patient with multiple co-morbidities. * Very edematous, but renal failure preventing aggressive diuresis. * Nephrology following. Giving IV albumin and low dose Lasix. UOP has fallen off. * Discussed with GI. Likely has impaction and working to resolve it with enema' s.
[2019-01-06] MEDS: Albumin 25% 25 GM/100 ML BOT IVPB SCH (03:35)
[2019-01-06 04:15] LABS: INR-International Normal Ratio 3.8; Prothrombin Time 37.2 SEC (12.0-14.7)
[2019-01-06] MEDS: Bisacodyl 10 MG SUPP PR PRN (04:36)
[2019-01-06] MEDS: Furosemide 20 MG/2 ML VIAL SLOW IVP SCH (06:20)
[2019-01-06] MEDS: Ondansetron PF 4 MG/2 ML Vial SLOW IVP PRN ×3 (06:21→22:15)
--- NOTE | 2019-01-06 09:19 | RAD ---
KUB: INDICATION: Fecal impaction. COMPARISON: Prior CT of the abdomen and pelvis dated 12/19/2018. FINDINGS: A mild amount of retained stool within the colon appears less prominent than on the comparison CT. B owel gas pattern is nonspecific. There are scattered vascular calcifications. No acute osseous abno rmality is evident. IMPRESSION: Decreasing prominence in the retained stool within the colon compared to recent CTA of 12/19/2018. POS: DANAE
--- NOTE | 2019-01-06 09:21 | PRG ---
DATE OF SERVICE: 01/06/2019 SUBJECTIVE: Ms. Dinh is a 53-year-old female, who has known history of cirrhosis secondary to fatty liver and admitted for generalized edema as well as for her superimposed acute kidney injury. The patient was evaluated by the Renal Service and prerenal azotemia was considered. Diuretics have been adjusted downwards. In addition, she has been started on albumin infusion. There is stabilization with her renal dysfunction. She came in initially with a with a creatinine of 3.92 mg% and the last creatinine yesterday was 3.78. She has received 3 days of albumin infusion. No new complaints today except for the diffuse myalgia. Denies any chest pain or shortness of breath. OBJECTIVE: VITAL SIGNS: Blood pressure 117/76, heart rate 89, respiratory rate 20, temperature 97.7, pulse ox 92 percent. GENERAL: The patient is awake, sitting, obese, not in overt distress. SKIN: Adequate turgor. HEENT: Slightly pale conjunctivae. Icteric sclerae. NECK: No neck mass. No carotid bruits. No JVD. LUNGS: Decreased breath sounds. HEART: Normal sinus rhythm. No murmurs, gallops, or rubs. ABDOMEN: Globular, soft, nontender, no masses. EXTREMITIES: Positive for edema. No deformities. LABORATORY DATA: Laboratories of yesterday-abdomen ultrasound was done, which showed liver cirrhosis, positive for ascites, prominent spleen, normal gallbladder was noted. Chemistries of January 05, 2019, sodium 131, potassium 4.2, chloride 96, carbon dioxide 19, BUN 51, creatinine 3.78, GFR 13 mL/minute, calcium 10.7. Basic met of January 06, 2019, pending. ASSESSMENT AND PLAN: 1. Acute kidney injury/chronic renal failure, superimposed prerenal azotemia-currently receiving albumin infusion. Received last course of albumin today. Continue current management. Continue current diuretic regimen. There is no indication for dialytic intervention at the present time. 2. Cirrhosis-supportive care. Gastroenterology is following the patient. No acute intervention indicated at present time. 3. Overall prognosis remains poor. Continue supportive care. We will be rechecking another base met today and tomorrow. Job ID: [id number]
[2019-01-06] MEDS: Senokot S 8.6-50 MG TAB PO SCH (09:28)
[2019-01-06] MEDS: Fleet Enema 133 ML BOT PR PRN (09:29)
[2019-01-06] MEDS: Polyethylene Glycol 3350 17 GM Packet PO PRN (09:29)
[2019-01-06 09:50] LABS: Anion Gap 25 mmol/L (10-20); BUN (Urea Nitrogen) 60 mg/dL (9.8-20.1); Calc. Creatinine Clearance 25 mL/min (70-130); Calcium 10.6 mg/dL (7.8-10.44); Carbon Dioxide 15 mmol/L (22-29); Chloride 96 mmol/L (98-107); Estimated GFR-MDRD 10; Glucose 99 mg/dL (70-105); Potassium 4.4 mmol/L (3.5-5.1); Sodium 132 mmol/L (136-145)
--- NOTE | 2019-01-06 10:45 | PRG ---
DATE OF SERVICE: 01/04/2019 OBJECTIVE: GENERAL: She is in bed. She is uncomfortable. HEENT: She is icteric. She has not voided much today. She is eating some. VITAL SIGNS: Temperature is 97, pulse 82, blood pressure 116/58. No urine outputs were reported. Weight 233. LUNGS: Decreased breath sounds at bases. HEART: Regular rate and rhythm. ABDOMEN: Protuberant, somewhat tender in lower abdomen with anasarca involving abdominal wall, thighs, back, and legs. LABORATORY DATA: Sodium 130, potassium 4.1, BUN and creatinine 38 and 3.9, going down from 3.2 on the 25th, bilirubin 17, AST 44. AFP came back at 59.7, is down from 63 on 06/16/2018. Tylenol level is less than 6. ASSESSMENT: 1. Nonalcoholic steatohepatitis versus component of autoimmune hepatitis biopsy in the past showed mildly elevated smooth muscle antibody and IgE, but minimally elevated AST and ALT. I suspect there is a component of right heart failure driving her liver disease as well. 2. Anasarca with no ascites on last imaging on last admission. I think this is more of her right heart failure issue. 3. Cirrhosis from above. 4. Type 2 diabetes. 5. Hypertension. 6. Obesity. 7. Diastolic heart failure with component of right-sided heart failure. 8. Stage 3 chronic kidney disease with difficulty managing fluid secondary to inability to aggressively diurese. 9. Hyponatremia. 10. No signs of hepatoma with AFP dropping. 11. Known discomfort seemingly from anasarca. PLAN: 1. I have discussed the case with Dr. Lanza yesterday and we will continue diuresis with albumin and Lasix. Tramadol has been added for abdominal pain. Palliative Care is seeing the patient. The prognosis is very poor at this time. 2. We will obtain abdominal ultrasound to evaluate for possible ascites tap. Job ID: [id number]
--- NOTE | 2019-01-06 10:59 | PRG ---
DATE OF SERVICE: 01/05/2019 Nurses note that tried to give her an enema and could not as she seemed to have fecal impaction. Cleared today. Could not look and make sure her output. She continues on albumin infusion and lower dose of diuretic that she had been at home. Mainly complains of abdominal fullness and leg edema and she is still eating. MEDICATIONS: 1. Albumin 25 g IV q.6. 2. Dulcolax. 3. Lasix 20 IV q.12. 4. Zofran p.r.n. 5. MiraLAX p.r.n. 6. Senokot daily. 7. Sodium bicarb 650 t.i.d. 8. Tramadol p.r.n. for pain. PHYSICAL EXAMINATION: VITAL SIGNS: The patient has been afebrile. Temperature 97.4 this morning, O2 saturation 93% on 4 L nasal cannula. Blood pressure 100/76 to 117/56. In's and out's 300 recorded this morning, diaper weight was 241 today, it was 233 yesterday. GENERAL: She is uncomfortable. HEENT: She is icteric. She is overweight, but has significant anasarca, pitting, semifirm up to her abdomen, thighs, and lower back. RECTAL: Reveals a soft, moderate fecal impaction, this was disimpacted. LABORATORY DATA: Sodium 131, potassium 4.2, BUN and creatinine were 51 and 3.78 down from 3.91 yesterday. Urine did show some protein. Previous labs showed no signs of globulin gap. Albumin of 4 and serum protein of 7.1. Hemoglobin 7.7, white count 3.8, and platelet count 41,000. DIAGNOSTIC STUDIES: Ultrasound revealed splenomegaly, thickened gallbladder wall with hyperemia and perihepatic ascites but no diffuse ascites in the abdomen to be tapped. There were no signs of portal venous clot. Hepatic venous clot on ultrasound. ASSESSMENT: 1. Cirrhosis. This is a combination of fatty liver and right heart failure. She has had mildly elevated AFP, but it is lower than it was last June. Imaging in the past does not show any signs of hepatoma. She did have a mildly elevated smooth muscle antibody of 37 and 33 in last August and in December. Her IgG was elevated at 2569. ANAs were negative in the past. Hepatitis serologies were negative. Antimitochondrial antibody was negative. Iron studies were normal. Previous evaluation for alpha-1 antitrypsin disease was negative. Last June, upper and lower endoscopies were normal without signs of bleeding. There was some solid stool in the right colon. She had previously been referred for liver hepatology evaluation in [place] back last year although 3 calls were made to her and she never returned those. It turned out that apparently, she was having difficulty getting to her phone at work. After last admission, did supply a second phone number so we could contact her but she came back to the hospital too quickly. 2. Total body fluid overload with difficulty in diuresis secondary to renal disease. 3. She is on sodium bicarb 3 times a day. This may be worsening her anasarca. She is still taking it obviously for stage 3 chronic kidney disease. We will talk with Nephrology about stopping that. 4. Constipation/fecal impaction, talked to nurse about starting enemas and suppositories alternating for fecal disimpaction. 5. Diastolic heart failure with right heart failure. 6. Obesity. 7. Hypertension. 8. Type 2 diabetes. 9. Nonalcoholic steatohepatitis. 10. Anemia. We will give her a unit of blood as it may help with her blood pressure, infusion albumin can stop as albumin is 4.1. We will recheck her autoimmune markers and can consider empiric steroids. 11. We are working on disimpaction now. Job ID: [id number]
[2019-01-06] MEDS ORDERED: Octreotide Acetate 1,250 MCG in Sodium Chloride 0.9% 250 ML 250 ML IVPB SCH ×2 (12:45→21:00)
[2019-01-06] MEDS ORDERED: Furosemide 40 MG/4 ML VIAL SLOW IVP SCH (12:45)
[2019-01-06] MEDS: traMADol HCl 50 MG TAB PO PRN (17:45)
--- NOTE | 2019-01-06 17:52 | PDOC.PN ---
- Subjective Encounter Start Date: 01/06/19 Encounter Start Time: 10:00 Feels some better with the bowel movements. Very sleepy. - Objective Resuscitation Status - Order Detail: 01/04/19 13:32 Resuscitation Status Routine Resuscitation Status: DNAR: NO Resuscitation Discussed with: pt and pt dtr Sommer Additional comments: Pt stated that she would not want CPR, intubation, cardioversion, cardiac meds if her heart was to stop. Vital Signs & Weight: Vital Signs (12 hours) Temp Pulse Pulse Pulse Resp BP BP 01/06/19 15:27 97.4 F L 90 18 01/06/19 13:40 97.1 F L 91 16 128/62 01/06/19 11:15 97.6 F 92 14 01/06/19 10:14 106 H 110/69 01/06/19 10:13 106 H 110/69 01/06/19 07:55 97.1 F L 89 14 BP Pulse Ox 01/06/19 15:27 134/60 97 01/06/19 13:40 01/06/19 11:15 118/75 92 L 01/06/19 10:14 01/06/19 10:13 01/06/19 07:55 127/63 92 L Weight Admit Weight 236 lb 11.2 oz Weight 240 lb I&O: 01/05/19 01/06/19 01/07/19 06:59 06:59 06:59 Intake Total 2800 1280 240 Output Total 300 0 Balance 2500 1280 240 Result Diagrams: 01/05/19 04:52 01/06/19 09:04 Additional Labs: Accuchecks 01/06/19 01/06/19 01/06/19 16:39 10:51 05:53 POC Glucose 110 100 108 01/05/19 20:57 POC Glucose 110 Phys Exam - Physical Examination Constitutional: NAD Jaundice. Somnlent, but appropriate. Respiratory: no wheezing, no rales, no rhonchi Diminished at bases. Cardiovascular: RRR, no significant murmur Diffusely distended with pitting subcut edema. 3+ pitting edema of entire BLE. Somnolent. Dx/Plan (1) Anasarca Code(s): R60.1 - GENERALIZED EDEMA Status: Acute Comment: on furosemide (2) COLEMAN (nonalcoholic steatohepatitis) Code(s): K75.81 - NONALCOHOLIC STEATOHEPATITIS (COLEMAN) Status: Acute (3) Cirrhosis of liver Code(s): K74.60 - UNSPECIFIED CIRRHOSIS OF LIVER Status: Chronic Qualifiers: Hepatic cirrhosis type: other cirrhosis Qualified Code(s): K74.69 - Other cirrhosis of liver Comment: stable (4) DM II (diabetes mellitus, type II), controlled Code(s): E11.9 - TYPE 2 DIABETES MELLITUS WITHOUT COMPLICATIONS Status: Chronic Qualifiers: Diabetes mellitus group home insulin use: without group home use Diabetes mellitus complication status: with unspecified complications Qualified Code(s) : E11.8 - Type 2 diabetes mellitus with unspecified complications Comment: controlled (5) HTN (hypertension) Code(s): I10 - ESSENTIAL (PRIMARY) HYPERTENSION Status: Chronic Qualifiers: Hypertension type: essential hypertension Qualified Code(s): I10 - Essential (primary) hypertension Comment: controlled (6) Obesity Code(s): E66.9 - OBESITY, UNSPECIFIED Status: Chronic Qualifiers: Obesity classification: adult class 3 (BMI >= 40) Serious obesity comorbidity presence: with serious comorbidity Body mass index: BMI 40.0-44.9 (7) Diastolic CHF, acute on chronic Code(s): I50.33 - ACUTE ON CHRONIC DIASTOLIC (CONGESTIVE) HEART FAILURE Status : Resolved (8) Acute worsening of stage 3 chronic kidney disease Code(s): N18.3 - CHRONIC KIDNEY DISEASE, STAGE 3 (MODERATE) Status: Acute (9) Hyponatremia Code(s): E87.1 - HYPO-OSMOLALITY AND HYPONATREMIA Status: Acute (10) Constipation Code(s): K59.00 - CONSTIPATION, UNSPECIFIED Status: Acute - Plan * Has received the albumin. * UOP is very low. * Creatinine is higher. * She looks a little encephalopathic. * Discussed with GI. We agree that she might benefit from Lactulose or Xifaxan. * Overall, prognosis is very poor. Interventions do not appear to be offering much benefit. * Spoke with family. Would likely need to have a discussion about disposition by tomorrow. * Palliative Care working with the family. * They indicated later in the day that they would like to meet with Hospice. That will be ordered.
--- NOTE | 2019-01-06 17:59 | PDOC.EVN ---
Event Note - Event Note Event Note: Discussed the prognosis with the patient. With her permission, discussed the situation further with her adult children. Given the medical situation, her prognosis is poor and appears to be getting worse as treatment fails to provide improvement. Discussed options for care including end of life decisions. Palliative Care Team is working with the family as well. Discussed various options including palliative care with hospice services at home or in a facility. She is now DNAR and that would certainly continue in the outpatient setting. Time spent in ACP 17 min.
--- NOTE | 2019-01-06 19:20 | PRG ---
DATE OF SERVICE: 01/06/2019 SUBJECTIVE: Ms. Dinh states that her abdomen feels better after getting cleared up her bowel movements. However, she has had a little bit of subconjunctival hemorrhage in the eye and a little bit of rectal bleeding with her enemas. She was able to take a shower this morning. MEDICATIONS: 1. Dulcolax. 2. Lasix 20 IV q.12. 3. Zofran p.r.n. 4. MiraLAX. 5. Senokot. 6. Fleet Enema. 7. Tramadol. PHYSICAL EXAMINATION: VITAL SIGNS: Temperature is 97.4, pulse 90, and blood pressure 134/60. HEENT: She is grossly icteric. LUNGS: Clear. EXTREMITIES: There is diffuse anasarca in the abdomen, legs, back, and hips. Severe anasarca and edema in the lower extremities. She is a little bit confused per the family, but there is no overt asterixis. Weight was 240 today, 240 yesterday. There is 240 mL out over the last 2 days recorded, although she is using a diaper. LABORATORY DATA: No CBC today. Yesterday, hemoglobin was 7.7. INR was 3.8 today. Sodium 133, potassium 4.4, BUN and creatinine increased to 60 and 4.53 today. IgG is 1537 and had been 2569 on 12/16/2018. X-ray, markedly improved stool in the colon. ASSESSMENT: 1. Constipation impaction, resolved. We will stop enemas and Dulcolax and will talk with nurse. 2. With regard to the patient's worsening renal function, coagulopathy, and anemia, we will go ahead and give her colloid with FFP and blood today and then give her 40 Lasix IV. I talked to the nurse and asked her to call me if she has no response to the 40 of Lasix, which should be started after the transfusions, then she will call me and we will give her 80. 3. We will start octreotide to see if it will help the renal perfusion. 4. Serologies for autoimmune hepatitis were sent again this morning. The IgG is normal at this time, making an active autoimmune hepatitis unlikely. I reviewed the patient's history with the family again today. There has not been any history of recent alcohol abuse. 5. Renal failure is worsening. See as above. 6. I had a long discussion, the patient, daughters and the granddaughter sitting at the bedside today about very high risk of mortality and with this hospitalization, if she continued to deteriorate with her renal and hepatic function. Dr. Taylor has talked to the patient is about these issues as well. Job ID: [id number]
[2019-01-06] MEDS ORDERED: Furosemide 100 MG/10 ML VIAL SLOW IVP SCH (21:00)
[2019-01-06] MEDS ORDERED: Phytonadione 10 MG/ML AMP SLOW IVP SCH (21:00)
[2019-01-06] MEDS: Rifaximin 550 MG TAB PO SCH (22:05)
[2019-01-06] MEDS ORDERED: Phytonadione 10 MG in Sodium Chloride 0.9% 50 ML IVPB SCH (22:15)
[2019-01-07 06:28] LABS: INR-International Normal Ratio 2.7; Prothrombin Time 28.8 SEC (12.0-14.7)
[2019-01-07 06:52] LABS: Anion Gap 25 mmol/L (10-20); BUN (Urea Nitrogen) 65 mg/dL (9.8-20.1); Calc. Creatinine Clearance 23 mL/min (70-130); Calcium 10.5 mg/dL (7.8-10.44); Carbon Dioxide 15 mmol/L (22-29); Chloride 95 mmol/L (98-107); Estimated GFR-MDRD 9; Glucose 103 mg/dL (70-105); Potassium 4.6 mmol/L (3.5-5.1); Sodium 130 mmol/L (136-145)
[2019-01-07 06:54] LABS: #Eosinphils 0.1 thou/uL (0.0-0.7); #Lymphocytes 0.4 thou/uL (1.20-3.40); #Monocytes 0.7 thou/uL (0.11-0.59); #Neutrophils 4.4 thou/uL (1.40-6.50); %Eosinophils 1.9 % (0.0-10.0); %Lymphocytes 6.4 % (21.0-51.0); %Monocytes 12.4 % (0.0-10.0); %Neutrophils 79.3 % (42.0-75.0); Anisocytosis MODERATE=16-30 cells (100X) (0-5/hpf); Hemoglobin 7.8 g/dL (12.0-16.0); Hypochromia MODERATE=16-30 cells (100X) (0-5/hpf); MDiff Complete? YES; Mean Corpuscular HGB CONC 29.9 g/dL (32.0-36.0); Mean Corpuscular Hemoglobin 24.9 pg (27.0-31.0); Mean Corpuscular Volume 83.5 fL (78.0-98.0); Mean Platelet Volume 7.2 fL (7.4-10.4); Platelet Count 47 thou/uL (130-400); Platelet Morphology Comment Appears Decreased; RBC Distribution Width 24.8 % (11.5-14.5); Red Blood Cell (RBC) Count 3.12 mill/uL (4.20-5.40); White Blood Cell (WBC) Count 5.5 thou/uL (4.8-10.8)
[2019-01-07 06:56] LABS: ALT (SGPT) 20 U/L (8-55); AST (SGOT) 57 U/L (5-34); Albumin 4.9 g/dL (3.5-5.0); Alkaline Phosphatase 43 U/L (40-150); Bilirubin, Total 21.7 mg/dL (0.2-1.2); Protein, Total 7.7 g/dL (6.0-8.3)
[2019-01-07 07:33] LABS: Bilirubin, Direct Greater than 10.0 mg/dL (0.1-0.3)
--- NOTE | 2019-01-07 09:32 | PRG ---
DATE OF SERVICE: 01/07/2019 SUBJECTIVE: Ms. Dinh is a 53-year-old female, who was seen by the Renal Service for her acute kidney injury. We feel that this could be a hemodynamically-mediated renal dysfunction. IV albumin infusion was given to her. However, renal function remained unimproved. However, it remains stable. She has also underlying history of cirrhosis. No new complaints. She feels tired. OBJECTIVE: VITAL SIGNS: Blood pressure 111/55, heart rate is noted at 84, respiratory rate 20, temperature 97.8, and pulse ox 91% on 4 L. GENERAL: Noted to be lethargic, not in distress, arousable. SKIN: Adequate turgor. HEENT: Pale conjunctivae. Icteric sclerae. NECK: No neck mass. No JVD. LUNGS: Decreased breath sounds. HEART: Normal sinus rhythm. No murmurs. No gallops. No rubs. ABDOMEN: Globular, soft, and nontender. No masses. EXTREMITIES: Positive for edema. MEDICATIONS: Medications of January 07, 2019, were reviewed. LABORATORY DATA: Laboratories of January 07, 2019; white count 5.5, hemoglobin 7.8. Sodium 130, potassium 4.6, chloride 95, carbon dioxide 15, BUN 65, creatinine 4.93. Bilirubin is 21.7, AST 57, and ALT 20. ASSESSMENT AND PLAN: 1. Acute kidney injury/chronic renal failure, consider hemodynamically-mediated renal dysfunction or development of hepatorenal syndrome. Creatinine has continued to worsen. The patient has been started on octreotide by her GI doctor. She is also off her Lasix. Continue supportive care. There is no indication for any dialytic intervention. 2. Cirrhosis, supportive care. Job ID: [id number]
[2019-01-07] MEDS: Senokot S 8.6-50 MG TAB PO SCH (10:04)
[2019-01-07] MEDS: Rifaximin 550 MG TAB PO SCH ×2 (10:05→19:59)
[2019-01-07 11:48] VITALS: BMI 41.1
--- NOTE | 2019-01-07 16:38 | PRG ---
DATE OF SERVICE: 01/07/2019 SUBJECTIVE: Ms. Dinh does not really feel much stiffer than yesterday. Her daughter is at the bedside. Hospice is going to come and talk to her about. The nurses informed me Ms. Dinh really is not interested in hospice at this point in time. OBJECTIVE: VITAL SIGNS: Temperature is 97.8, pulse 88, blood pressure 124/62. Yesterday, the patient did receive a unit of blood and 2 units of FFP as well as vitamin K. She received Lasix 40 and then Lasix 60 IV with the transfusions. She ultimately had only 300 mL of urine output. She has put another 160 today. PHYSICAL EXAMINATION: HEENT: She is icteric. She is swollen of anasarca. Oropharynx, without lesions. LUNGS: Clear. HEART: Regular rate and rhythm. ABDOMEN: Nontender. It is soft in the upper abdomen. She has anasarca in the pannus of her lower abdomen. She has edema and anasarca in her hips, back, thighs, ankles, and legs. LABORATORY DATA: White count 5.5, hemoglobin 7.8, it was 7.7 on the . She received 1 unit of blood yesterday. Platelets are 47,000. INR is 2.7 down from 3.8 after 2 units of FFP overnight. Sodium 130, potassium 4.6, bicarbonate is 15, anion gap 25, BUN 65, creatinine 4.93, up from 4.53 yesterday. Bilirubin is 21, calcium is 10.5. AST and ALT of 57 and 20. Protein is 7, albumin is 4.9. ASSESSMENT: 1. Right heart failure-severe diastolic dysfunction. 2. Cirrhosis with no ascites. 3. Renal failure with no signs of overt nephrotic syndrome. 4. Anasarca/ascites likely related more to heart failure and renal failure typically with cirrhosis with this degree of anasarca, one could see significant ascites, which she just does not have. 5. Her prognosis is very poor with her combined heart failure, renal failure, and liver disease. I talked with the family that even with dialysis for her renal failure, will not reverse her heart and liver disease and I think that would be futile. I have recommended palliative care and even consideration of hospice. We are still waiting for an SPEP and UPEP, and we did start octreotide yesterday to help for possible hepatorenal syndrome, not seeing any improvement and until family decided they wanted would discontinue that. We will defer to either giving more fluids or fluid challenges or more diuretics and Nephrology at this point in time. We will follow along with you. Job ID: [id number]
[2019-01-07] MEDS: traMADol HCl 50 MG TAB PO PRN (19:58)
[2019-01-07] MEDS: Ondansetron PF 4 MG/2 ML Vial SLOW IVP PRN (20:19)
--- NOTE | 2019-01-07 22:34 | PDOC.PN ---
- Subjective Encounter Start Date: 01/07/19 Encounter Start Time: 13:45 Still sleepy today. Otherwise unchanged. - Objective Resuscitation Status - Order Detail: 01/04/19 13:32 Resuscitation Status Routine Resuscitation Status: DNAR: NO Resuscitation Discussed with: pt and pt dtr Sommer Additional comments: Pt stated that she would not want CPR, intubation, cardioversion, cardiac meds if her heart was to stop. Vital Signs & Weight: Vital Signs (12 hours) Temp Pulse Resp BP Pulse Ox 01/07/19 19:50 97.9 F 93 20 125/70 95 01/07/19 13:11 97.8 F 88 20 124/62 94 L Weight Admit Weight 236 lb 11.2 oz Weight 239 lb 11.2 oz I&O: 01/06/19 01/07/19 01/08/19 06:59 06:59 06:59 Intake Total 1280 2534 180 Output Total 0 160 50 Balance 1280 2374 130 Result Diagrams: 01/07/19 06:02 01/07/19 06:02 Additional Labs: Accuchecks 01/07/19 01/07/19 01/07/19 17:01 10:49 05:35 POC Glucose 106 105 102 Phys Exam - Physical Examination Somnolent, but arousable. Jaundice Venous distention of the face. Respiratory: no wheezing, no rales Very diminished Cardiovascular: RRR, no significant murmur Distended. Pitting edema over abdoment. 3+ edema. Neurological: non-focal Deviation from normal: Somnolent. Appropriate. Deviation from normal: Jaundice. Dx/Plan (1) Anasarca Code(s): R60.1 - GENERALIZED EDEMA Status: Acute Comment: on furosemide (2) COLEMAN (nonalcoholic steatohepatitis) Code(s): K75.81 - NONALCOHOLIC STEATOHEPATITIS (COLEMAN) Status: Acute (3) Cirrhosis of liver Code(s): K74.60 - UNSPECIFIED CIRRHOSIS OF LIVER Status: Chronic Qualifiers: Hepatic cirrhosis type: other cirrhosis Qualified Code(s): K74.69 - Other cirrhosis of liver Comment: stable (4) DM II (diabetes mellitus, type II), controlled Code(s): E11.9 - TYPE 2 DIABETES MELLITUS WITHOUT COMPLICATIONS Status: Chronic Qualifiers: Diabetes mellitus assisted insulin use: without assisted use Diabetes mellitus complication status: with unspecified complications Qualified Code(s) : E11.8 - Type 2 diabetes mellitus with unspecified complications Comment: controlled (5) HTN (hypertension) Code(s): I10 - ESSENTIAL (PRIMARY) HYPERTENSION Status: Chronic Qualifiers: Hypertension type: essential hypertension Qualified Code(s): I10 - Essential (primary) hypertension Comment: controlled (6) Obesity Code(s): E66.9 - OBESITY, UNSPECIFIED Status: Chronic Qualifiers: Obesity classification: adult class 3 (BMI >= 40) Serious obesity comorbidity presence: with serious comorbidity Body mass index: BMI 40.0-44.9 (7) Diastolic CHF, acute on chronic Code(s): I50.33 - ACUTE ON CHRONIC DIASTOLIC (CONGESTIVE) HEART FAILURE Status : Resolved (8) Acute worsening of stage 3 chronic kidney disease Code(s): N18.3 - CHRONIC KIDNEY DISEASE, STAGE 3 (MODERATE) Status: Acute (9) Hyponatremia Code(s): E87.1 - HYPO-OSMOLALITY AND HYPONATREMIA Status: Acute (10) Constipation Code(s): K59.00 - CONSTIPATION, UNSPECIFIED Status: Acute - Plan * Discussed with patient. There has been progression of the hepatorenal syndrome. Creatinine has increased and UOP is still very poor. Liver failure is progressive. She has some minor bleeding issues. There is nothing further that offers any significant opportunity for improvement. She and her family indicated a desire to meet with Hospice. She does not have hospice benefits. Hospice has agreed to take her case in spite of that. The rep has tried to meet with the family twice today, but the family has failed to show. The patient has indicated to me that she would like to pursue hospice, but she is unwilling to sign anything unless her is here. Will keep trying.
[2019-01-08] MEDS ORDERED: Metoprolol Tartrate 25 MG TAB PO SCH ×4 (01:15→09:00)
[2019-01-08 07:23] LABS: Anion Gap 27 mmol/L (10-20); BUN (Urea Nitrogen) 73 mg/dL (9.8-20.1); Calc. Creatinine Clearance 19 mL/min (70-130); Calcium 10.1 mg/dL (7.8-10.44); Carbon Dioxide 12 mmol/L (22-29); Chloride 94 mmol/L (98-107); Estimated GFR-MDRD 7; Glucose 78 mg/dL (70-105); Sodium 128 mmol/L (136-145)
[2019-01-08 08:04] LABS: #Eosinphils 0.1 thou/uL (0.0-0.7); #Lymphocytes 0.4 thou/uL (1.20-3.40); #Neutrophils 7.2 thou/uL (1.40-6.50); %Basophils 0.1 % (0.0-1.0); %Eosinophils 0.9 % (0.0-10.0); %Lymphocytes 4.8 % (21.0-51.0); %Monocytes 11.9 % (0.0-10.0); %Neutrophils 82.3 % (42.0-75.0); Hemoglobin 8.1 g/dL (12.0-16.0); Mean Corpuscular HGB CONC 29.9 g/dL (32.0-36.0); Mean Corpuscular Hemoglobin 25.8 pg (27.0-31.0); Mean Corpuscular Volume 86.4 fL (78.0-98.0); Mean Platelet Volume 6.4 fL (7.4-10.4); Platelet Count 67 thou/uL (130-400); RBC Distribution Width 25.5 % (11.5-14.5); Red Blood Cell (RBC) Count 3.15 mill/uL (4.20-5.40); White Blood Cell (WBC) Count 8.7 thou/uL (4.8-10.8)
[2019-01-08] MEDS: Rifaximin 550 MG TAB PO SCH (08:52)
[2019-01-08] MEDS: Senokot S 8.6-50 MG TAB PO SCH (08:54)
[2019-01-08] MEDS ORDERED: Lorazepam 2 MG/ML VIAL SLOW IVP PRN (11:42)
[2019-01-08] MEDS ORDERED: Morphine 2 MG/ML SYRINGE SLOW IVP PRN (11:55)
[2019-01-08 12:41] VITALS: TEMP 97.7
--- NOTE | 2019-01-08 13:42 | PDOC.PN ---
- Subjective Encounter Start Date: 01/08/19 Encounter Start Time: 11:05 Patient is more confused and borderline agitated. Says she wants to get up on the side of the bed and she is pulling the oxygen off. Multiple family members present. - Objective Resuscitation Status - Order Detail: 01/04/19 13:32 Resuscitation Status Routine Resuscitation Status: DNAR: NO Resuscitation Discussed with: pt and pt dtr Sommer Additional comments: Pt stated that she would not want CPR, intubation, cardioversion, cardiac meds if her heart was to stop. Vital Signs & Weight: Vital Signs (12 hours) Temp Pulse Resp BP Pulse Ox 01/08/19 12:15 90 L 01/08/19 12:00 97.7 F 55 L 13 109/49 L 89 L 01/08/19 07:50 97.5 F L 92 18 110/59 L 95 01/08/19 05:35 78 20 108/46 L 01/08/19 04:55 92 L 01/08/19 03:40 97.1 F L 86 16 115/55 L 93 L Weight Admit Weight 236 lb 11.2 oz Weight 241 lb 1.6 oz I&O: 01/07/19 01/08/19 01/09/19 06:59 06:59 06:59 Intake Total 2534 730 Output Total 160 100 Balance 2374 630 Result Diagrams: 01/08/19 06:02 01/08/19 06:02 Additional Labs: Accuchecks 01/08/19 01/08/19 01/07/19 11:32 05:36 20:10 POC Glucose 70 85 102 01/07/19 17:01 POC Glucose 106 Phys Exam - Physical Examination Very volume overloaded. Somnolent, slightly confused/agitated. Respiratory: no wheezing Very diminished Cardiovascular: RRR, no significant murmur, no rub Obese, distended, pitting edema of the pannus. 3+ pitting edema of BLE's up to mid abdomen Somnolent, encephalopathic. Deviation from normal: Jaundice Dx/Plan (1) Anasarca Code(s): R60.1 - GENERALIZED EDEMA Status: Acute Comment: on furosemide (2) COLEMAN (nonalcoholic steatohepatitis) Code(s): K75.81 - NONALCOHOLIC STEATOHEPATITIS (COLEMAN) Status: Acute (3) Cirrhosis of liver Code(s): K74.60 - UNSPECIFIED CIRRHOSIS OF LIVER Status: Chronic Qualifiers: Hepatic cirrhosis type: other cirrhosis Qualified Code(s): K74.69 - Other cirrhosis of liver Comment: stable (4) DM II (diabetes mellitus, type II), controlled Code(s): E11.9 - TYPE 2 DIABETES MELLITUS WITHOUT COMPLICATIONS Status: Chronic Qualifiers: Diabetes mellitus group home insulin use: without terminal make up operator use Diabetes mellitus complication status: with unspecified complications Qualified Code(s) : E11.8 - Type 2 diabetes mellitus with unspecified complications Comment: controlled (5) HTN (hypertension) Code(s): I10 - ESSENTIAL (PRIMARY) HYPERTENSION Status: Chronic Qualifiers: Hypertension type: essential hypertension Qualified Code(s): I10 - Essential (primary) hypertension Comment: controlled (6) Obesity Code(s): E66.9 - OBESITY, UNSPECIFIED Status: Chronic Qualifiers: Obesity classification: adult class 3 (BMI >= 40) Serious obesity comorbidity presence: with serious comorbidity Body mass index: BMI 40.0-44.9 (7) Diastolic CHF, acute on chronic Code(s): I50.33 - ACUTE ON CHRONIC DIASTOLIC (CONGESTIVE) HEART FAILURE Status : Resolved (8) Acute worsening of stage 3 chronic kidney disease Code(s): N18.3 - CHRONIC KIDNEY DISEASE, STAGE 3 (MODERATE) Status: Acute (9) Hyponatremia Code(s): E87.1 - HYPO-OSMOLALITY AND HYPONATREMIA Status: Acute (10) Constipation Code(s): K59.00 - CONSTIPATION, UNSPECIFIED Status: Acute - Plan * Unfortunately, all interventions have failed and her renal function continues to deteriorate. * She is severely oliguric and is not a candidate for dialysis given her cardiac and liver disease. * She is palliative care at this time. The patient and family have agreed to hospice care. * The family met with hospice last night and the plan was for home care. They have been working on getting equipment. * There is some thought now that she might be better served with [facility]. Either is reasonable and should be based on family needs. * Can DC to hospice when that is fully arranged..
--- NOTE | 2019-01-08 15:14 | DIS ---
DATE OF ADMISSION: 01/03/2019 DATE OF DISCHARGE: 01/08/2019 DISCHARGE DIAGNOSES: 1. Anasarca. 2. Acute on chronic renal failure. 3. Cirrhosis of the liver secondary to history of nonalcoholic steatohepatitis. 4. History of diastolic congestive heart failure with acute on chronic exacerbation. 5. Hyponatremia. 6. Constipation. 7. Diabetes mellitus. 8. Obesity. 9. Encephalopathy. HISTORY: This patient is a 53-year-old female with a history of cirrhosis secondary to nonalcoholic steatohepatitis. The patient had been recommended for transplant previously, but had not connected with the transplant center in [place]. She subsequently presented to the hospital with worsening edema and shortness of breath. The patient appeared to have some hepatorenal syndrome with diastolic failure and development of substantial anasarca. HOSPITAL COURSE: The patient was admitted to the hospital. She was started on some diuresis and was seen in consultation by Nephrology who started her on some albumin infusions, hoping to increase oncotic flow to the kidneys and help diurese. However, the patient remained very oliguric and her creatinine continued to climb as her urine output continued to fall. She failed to respond to larger doses of diuretics and became increasingly edematous and anasarcatous. She started to develop increasing encephalopathy. She was seen by GI. She was complaining of some generalized abdominal pain, felt to be related to constipation. She had some disimpaction and enemas and ultimately did have some liberation of her colon, however, that did not improve her overall condition with the patient continuing to have worsening anasarca and jaundice in the setting of steadily increasing creatinine and worsening renal function. It was felt that the patient at a point where further interventions would not be helpful. Her coag coagulation time started to increase and she developed some subconjunctival hemorrhage and minor epistaxis. She was started on octreotide in an attempt to reduce her portal hypertension. However, again, none of these measures were helpful. The patient continued to have fairly rapid decline. We are in constant communication with the patient and her family regarding the lack of improvement with aggressive interventions and the concern given her failure of the heart, liver, and kidneys and ultimately they did decide the patient was appropriate for hospice and the patient was then in the conversations as well as in agreement with that plan. The patient and the family did meet with hospice representatives and ultimately have decided to go home on hospice care. DISPOSITION: The patient will be discharged to home on hospice care. DISCHARGE INSTRUCTIONS: We will recommend to continue the Lasix to the degree that she can swallow the pills, which has been challenging for her given her abdominal distention and discomfort. The remainder of the treatment plan will be per the hospice team. Time spent in discharge related activities including coordination of care with CM, Hospice and face to face time with the patient and family was 40 min Job ID: [id number] MTDD
[2019-01-08 16:06] LABS: ANA Symphony (Qualitative) Negative (Negative); ANA Symphony (Quantitative) 0.2 Ratio (< 0.7 Negative); EliA Vaculitis New Method **** NEW METHOD ****; Mitochondrial Ab 1.1 U/mL (<4 Negative); dsDNA IgG Antibody 1.2 IU/mL (<10 Negative)
[2019-01-08 16:47] VITALS: BP 99/49
[2019-01-09 17:07] LABS: Smooth Muscle Total ABS 20 Units (0-19)
[2019-01-11 11:22] LABS: A/G Ratio 1.7 (0.7-1.7); Albumin 4.7 g/dL (2.9-4.4); Alpha 1 0.1 g/dL (0.0-0.4); Alpha 2 0.2 g/dL (0.4-1.0); Beta 0.7 g/dL (0.7-1.3); Gamma 1.7 g/dL (0.4-1.8); Globulin, Total 2.7 g/dL (2.2-3.9); M-Spike Not Observed g/dL (Not Observed)
[2019-01-12 12:18] LABS: Albumin-Ur 77.9 % (.); Alpha 1 - Ur 1.1 % (.); Alpha 2 - Ur 1.9 % (.); Beta-Ur 7.1 % (.); M-Spike,% Not Observed % (Not Observed); Protein, Urine 585.2 mg/dL (Not Estab.)
== END 2019-01-08 18:30 | disposition hospice, home (50) | DRG 291 ==
LOC: ERS 09:51 → 2NO 12:02
PROVIDERS: ADMIT Internal Medicine; ATTEND Internal Medicine
PROC: 30233L1 Transfusion of Nonautologous Fresh Plasma into Peripheral Vein, Percutaneous Approach (ICD-10-PCS; principal; 2019-01-06)
PROC: 30233N1 Transfusion of Nonautologous Red Blood Cells into Peripheral Vein, Percutaneous Approach (ICD-10-PCS; 2019-01-06)
DX: I13.0 Hypertensive heart and chronic kidney disease with heart failure and stage 1 through stage 4 chronic kidney disease, or unspecified chronic kidney disease (principal); K76.7 Hepatorenal syndrome; I50.33 Acute on chronic diastolic (congestive) heart failure; N17.9 Acute kidney failure, unspecified; E87.1 Hypo-osmolality and hyponatremia; E87.2 Acidosis; Z68.41 Body mass index [BMI] 40.0-44.9, adult; D61.818 Other pancytopenia; R18.8 Other ascites; N18.3 Chronic kidney disease, stage 3 (moderate); K72.90 Hepatic failure, unspecified without coma; K76.1 Chronic passive congestion of liver; I50.810 Right heart failure, unspecified; Z66 Do not resuscitate; Z51.5 Encounter for palliative care; E11.22 Type 2 diabetes mellitus with diabetic chronic kidney disease; E66.01 Morbid (severe) obesity due to excess calories; K75.81 Nonalcoholic steatohepatitis (NASH); K74.60 Unspecified cirrhosis of liver; K59.00 Constipation, unspecified
CPT/HCPCS: 36415; 36416; 36430; 71045; 74018; 76705; 80048; 80053; 80076; 80307; 81001; 82105; 82140; 82553; 83516; 83605; 83735; 83880; 84165; 84166; 84484; 85025; 85610; 85730; 86038; 86225; 86850; 86900; 86901; 93005; 93306; 93798; 94760; 96360; J1610; J1940; J2354; J2405; J3430; J7050; P9016; P9045; P9047; P9059